=== PATIENT | female | born 1955 | race Caucasian/White ===

== ENCOUNTER 2024-06-12 08:21 | Outpatient (REF) | payer MEDICARE, OTHER, SELFPAY ==
--- OUTSIDE RECORDS SUMMARY | 2024-06-12 08:32 | XMS_ITS | Data Portability ---
Author Organization [facility], [facility] [place] [address] [place] [address] Care Team Providers Care Warehouse Operator Name Role Phone CHIP ACOSTA Primary Care Provider [phone] Assessment Encounter Date Assessment Date Assessment LastModified by Organization Details LastModified Time 10/05/2022 10/05/2022 We completed your Medicare Wellness exam today. This was an opportunity to assess your overall well being including your ability to care for yourself, your mobility, memory, mental health, as well as your safety. With advancing age, it is important to assign someone in your life as your Health Care Proxy (HCP). This person should know what is important to you and what your wishes are for medical procedures if you cannot communicate your wishes yourself (severe illness, unconsciousnes s). We discussed having a completed Health Care Proxy form today. This is in place. Vision and Hearing are senses that are critically important as we age. When impaired, they can contribute to memory loss, falls, and make it harder to drive, talk to family and friends, and engage in the world. Please get your vision checked yearly and your hearing checked when you start to notice hearing loss. We discussed approaches to lowering your risk of heart disease and stroke . Your blood pressure is at goal. Your cholesterol is at goal. We discussed cancer screening you may need as well as vaccines to prevent infections. Colon Cancer : Your risk of colon cancer is higher than average due to family history. Due for colorectal screenin . If you are not planning to have a colonoscopy please screen with stool cards yearly. Breast Cancer : Breast Cancer Screening (mammography). Next mammogram due: 2022. Cervical Cancer Screening (pap test). Next pap due: not needed. Influenza Vaccine : Flu shot yearly. Tetanus Vaccine : Every 10 years. Due: 2024. The following vaccines are available from your pharmacy: Pneumonia Vaccine : PCV20/13: once after age 65. Shingles Vaccine : 2 shots after age 50. Covid Vaccine : Make sure you have received the most up to date covid vaccine. Your personal health goal for the year is: Continue with healthy life style choices. [email or web address] Not available 10/05/2022 10:47:03 10/09/2023 10/09/2023 We completed your Medicare Wellness exam today. This was an opportunity to assess your overall well being including your ability to care for yourself, your mobility, memory, mental health, as well as your safety. With advancing age, it is important to assign someone in your life as your Health Care Proxy (HCP). This person should know what is important to you and what your wishes are for medical procedures if you cannot communicate your wishes yourself (severe illness, unconsciousnes s). We discussed having a completed Health Care Proxy form today. This is in place. Vision and Hearing are senses that are critically important as we age. When impaired, they can contribute to memory loss, falls, and make it harder to drive, talk to family and friends, and engage in the world. Please get your vision checked yearly and your hearing checked when you start to notice hearing loss. We discussed approaches to lowering your risk of heart disease and stroke . Your blood pressure is at goal. Your cholesterol is at goal. We discussed cancer screening you may need as well as vaccines to prevent infections. Colon Cancer : Your risk of colon cancer is higher than average due to personal history of colon polyps. Due for colorectal screenin . If you are not planning to have a colonoscopy please screen with stool cards yearly. Breast Cancer : Breast Cancer Screening (mammography). Next mammogram due: 2023. Cervical Cancer Screening (pap test). Next pap due: not needed. Influenza Vaccine : Flu shot yearly. Tetanus Vaccine : Every 10 years. Due: 2024. The following vaccines are available from your pharmacy: Pneumonia Vaccine : PCV20: once after age 65. Shingles Vaccine : 2 shots after age 50. Covid Vaccine : Make sure you have received the most up to date covid vaccine. Your personal health goal for the year is: continue with healthy life style choices. [email or web address] Not available 10/09/2023 12:03:54 Plan of Treatment Reminders Order Date Submit Date Provider Last Modified By Organization Details Last Modified Time Details Appointments Wellness Visit 30 2024 10:30A Jessi ACOSTA MD Not available Not available Not available Lab HbA1c (hemoglob in A1c), blood 2023 024 [facility], [address] [place] [address], [id number], 10/02/2023 14:29:48 BMP, serum or plasma 2023 024 [facility], [address] [place] [address], [id number], 10/04/2023 12:15:00 HbA1c (hemoglob in A1c), blood 2022 024 [facility], [address] [place] [address], [id number], 04/26/2023 12:28:00 BMP, serum or plasma 2022 024 [facility], [address] [place] [address], [id number], 04/26/2023 14:13:00 Referral hand surgeon referral 2024 025 [email or web address] Agatha Redd MD, [address] [place] [address], [id number], 04/23/2024 10:48:50 oral & maxillofa cial surgeon referral 2023 024 [email or web address] [facility], [address] [place] [address], [place], [address], 10/09/2023 12:24:14 orthopedi c surgeon referral 2023 024 TALBOTT [facility], [address] [place] [address], [id number], 10/18/2023 09:25:37 Procedures None recorded. Surgeries None recorded. Imaging None recorded. Medication Orders atorvasta tin 20 mg tablet 2024 025 [id number], [address] [place], [address], 04/21/2024 10:25:46 Patient TargetsNo targets recorded. Patient Instructions Encounter Date Encounter Id Patient Instructions Last Modified By Organization Details Last Modified Time 10/05/2022 [id number] advance directives: care instructions [email or web address] Not available 10/05/2022 10:49:15 preventing falls: care instructions [email or web address] Not available 10/05/2022 10:49:14 hearing loss: care instructions [email or web address] Not available 10/05/2022 10:49:14 well visit, over 65: care instructions [email or web address] Not available 10/05/2022 10:49:14 04/30/2023 [id number] I serve as the focal point for all health care services the patient needs. 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 0 high Goal: <7% in Patie nts with Diabe michael An A1c betwe en 5.7-6 .4% is ident ified as pre-d iabet es and sugge sts risk for progr essio n to diabe michael Two a1c value s of 6.5% or highe r is consi stent with a diagn osis of diabe michael but may need furth er confi rmati on Not Available [address], [address], 09/25/2022 11:46:24 09/26/19 23 09/25/2022 HGB A1C estimated average glucose 134.1 mg/dL Not Available [address], [address], 09/25/2022 11:46:24 09/26/19 23 09/25/2022 BASIC METAB OLIC PANEL glucose 100 mg/dL 70-100 Not Available [address], [address], 09/25/2022 15:24:30 09/26/19 23 09/25/2022 BASIC METAB OLIC PANEL BUN 26 mg/dL 7-18 high Not Available [address], [address], 09/25/2022 15:24:30 09/26/19 23 09/25/2022 BASIC METAB OLIC PANEL creatinine 0.7 mg/dL 0.8-1. 3 low Not Available [address], [address], 09/25/2022 15:24:30 09/26/19 23 09/25/2022 BASIC METAB OLIC PANEL B/C 37.1 ratio Not Available [address], [address], 09/25/2022 15:24:30 09/26/19 23 09/25/2022 BASIC METAB OLIC PANEL GFR >=60ML /MIN mL/mi n normal >=60m L/min - Ava l or midly reduc ed <60mL /min- Decre ased kidne y funct ion <15mL /min - Kidne y failu re [facility] calcu lates estim ated Glome rular Filtr ation Rate (eGFR ) using the Chron ic Kidne y Disea se Epide miolo gy Colla borat ion (CKD- EPI) Equat ion (Allison castillo et. al 2020) as recom luisana d by the Natio nal Kidne y Found ation . eGFR is based on age, serum creat inine , and sex. CKD-E PI does not calcu late eGFR by race, does not apply to child jen (age <18 years ), and shoul d not be used in pregn cheryl. Not Available [address], [address], 09/25/2022 15:24:30 09/26/19 23 09/25/2022 BASIC METAB OLIC PANEL sodium 140 mmol/ L 136-14 5 Not Available [address], [address], 09/25/2022 15:24:30 09/26/19 23 09/25/2022 BASIC METAB OLIC PANEL potassium 4.1 mmol/ L 3.5-5. 1 Not Available [address], [address], 09/25/2022 15:24:30 09/26/19 23 09/25/2022 BASIC METAB OLIC PANEL chloride 102 mmol/ L 96-107 Not Available [address], [address], 09/25/2022 15:24:30 09/26/19 23 09/25/2022 BASIC METAB OLIC PANEL anion gap 11.1 5.0-15 .0 Not Available [address], [address], 09/25/2022 15:24:30 09/26/19 23 09/25/2022 BASIC METAB OLIC PANEL CO2 27 mmol/ L 21-32 Not Available [address], [address], 09/25/2022 15:24:30 09/26/19 23 09/25/2022 BASIC METAB OLIC PANEL calcium 9.5 mg/dL 8.5-10 .3 Not Available [address], [address], 09/25/2022 15:24:30 09/26/19 23 09/25/2022 LIPID PANEL cholesterol 186 mg/dL <200 mg/dl Lucie able 200-2 39 mg/dl Borde rline High >240 mg/dl High Not Available [address], [address], 09/25/2022 15:24:31 09/26/19 23 09/25/2022 LIPID PANEL triglyceride s 177 mg/dL <150 mg/dL Ava l 150-1 99 mg/dL Borde rline High 200-4 99 mg/dL High >500 mg/dL Very High Not Available [address], [address], 09/25/2022 15:24:31 09/26/19 23 09/25/2022 LIPID PANEL direct HDL 50 mg/dL <40 mg/dl - Major Risk for CHD >60 mg/dl - Negat donna Risk for CHD Not Available [address], [address], 09/25/2022 15:24:31 09/26/19 23 09/25/2022 LDL - CALCU LATED LDL - calculated 100.6 RISK CATEG ORY LDL GOAL _ CHD or CHD Risk Equiv alent s <100 mg/dl (10-y ear risk >20%) 2+ Risk Facto rs <130 mg/dl (10-y ear risk <= 20%) 0-1 Risk Facto r? <160 mg/dl ? Almos t all peopl e with 0-1 risk facto r have a 10 year risk <10%, thus 10 year risk asses ment in peopl e with 0-1 risk facto r is not neces leny. Not Available [address], [address], 09/25/2022 15:24:32 04/26/19 24 04/26/2023 HGB A1C hemoglobin A1C 6.2 % 4.8-6. 0 high Goal: <7% in Patie nts with Diabe michael An A1c betwe en 5.7-6 .4% is ident ified as pre-d iabet es and sugge sts risk for progr essio n to diabe michael Two a1c value s of 6.5% or highe r is consi stent with a diagn osis of diabe michael but may need furth er confi rmati on Not Available [address], [address], 04/26/2023 12:28:00 04/26/19 24 04/26/2023 HGB A1C estimated average glucose 131.2 mg/dL Not Available [address], [address], 04/26/2023 12:28:00 04/26/19 24 04/26/2023 BASIC METAB OLIC PANEL glucose 108 mg/dL 70-100 high Not Available [address], [address], 04/26/2023 14:13:00 04/26/19 24 04/26/2023 BASIC METAB OLIC PANEL BUN 21 mg/dL 7-18 high Not Available [address], [address], 04/26/2023 14:13:00 04/26/19 24 04/26/2023 BASIC METAB OLIC PANEL creatinine 0.8 mg/dL 0.8-1. 3 Not Available [address], [address], 04/26/2023 14:13:00 04/26/19 24 04/26/2023 BASIC METAB OLIC PANEL B/C 26.3 ratio Not Available [address], [address], 04/26/2023 14:13:00 04/26/19 24 04/26/2023 BASIC METAB OLIC PANEL GFR >=60ML /MIN mL/mi n normal >=60m L/min - Ava l or midly reduc ed <60mL /min- Decre ased kidne y funct ion <15mL /min - Kidne y failu re [facility] calcu lates estim ated Glome rular Filtr ation Rate (eGFR ) using the Chron ic Kidne y Disea se Epide miolo gy Colla borat ion (CKD- EPI) Equat ion (Allison castillo et. al 2020) as recom luisana d by the Natio nal Kidne y Found ation . eGFR is based on age, serum creat inine , and sex. CKD-E PI does not calcu late eGFR by race, does not apply to child jen (age <18 years ), and shoul d not be used in pregn cheryl. Not Available [address], [address], 04/26/2023 14:13:00 04/26/19 24 04/26/2023 BASIC METAB OLIC PANEL sodium 142 mmol/ L 136-14 5 Not Available [address], [address], 04/26/2023 14:13:00 04/26/19 24 04/26/2023 BASIC METAB OLIC PANEL potassium 4.2 mmol/ L 3.5-5. 1 Not Available [address], [address], 04/26/2023 14:13:00 04/26/19 24 04/26/2023 BASIC METAB OLIC PANEL chloride 101 mmol/ L 96-107 Not Available [address], [address], 04/26/2023 14:13:00 04/26/19 24 04/26/2023 BASIC METAB OLIC PANEL anion gap 11.4 5.0-15 .0 Not Available [address], [address], 04/26/2023 14:13:00 04/26/19 24 04/26/2023 BASIC METAB OLIC PANEL CO2 30 mmol/ L 21-32 Not Available [address], [address], 04/26/2023 14:13:00 04/26/19 24 04/26/2023 BASIC METAB OLIC PANEL calcium 9.9 mg/dL 8.5-10 .3 Not Available [address], [address], 04/26/2023 14:13:00 04/26/19 24 04/26/2023 LIPID PANEL cholesterol 196 mg/dL <200 mg/dl Lucie able 200-2 39 mg/dl Borde rline High >240 mg/dl High Not Available [address], [address], 04/26/2023 14:13:01 04/26/19 24 04/26/2023 LIPID PANEL triglyceride s 212 mg/dL <150 mg/dL Ava l 150-1 99 mg/dL Borde rline High 200-4 99 mg/dL High >500 mg/dL Very High Not Available [address], [address], 04/26/2023 14:13:01 04/26/19 24 04/26/2023 LIPID PANEL direct HDL 55 mg/dL <40 mg/dl - Major Risk for CHD >60 mg/dl - Negat donna Risk for CHD Not Available [address], [address], 04/26/2023 14:13:01 04/26/19 24 04/26/2023 LDL - CALCU LATED LDL - calculated 98.6 RISK CATEG ORY LDL GOAL _ CHD or CHD Risk Equiv alent s <100 mg/dl (10-y ear risk >20%) 2+ Risk Facto rs <130 mg/dl (10-y ear risk <= 20%) 0-1 Risk Facto r? <160 mg/dl ? Almos t all peopl e with 0-1 risk facto r have a 10 year risk <10%, thus 10 year risk asses ment in peopl e with 0-1 risk facto r is not monica michele. Not Available [address], [address], 04/26/2023 14:13:02 10/02/19 24 10/02/2023 HGB A1C hemoglobin A1C 6.1 % 4.8-6. 0 high Goal: <7% in Patie nts with Diabe michael An A1c betwe en 5.7-6 .4% is ident ified as pre-d iabet es and sugge sts risk for progr essio n to diabe michael Two a1c value s of 6.5% or highe r is consi stent with a diagn osis of diabe michael but may need furth er confi rmati on Not Available [address], [address], 10/02/2023 14:29:47 10/02/19 24 10/02/2023 HGB A1C estimated average glucose 128.4 mg/dL Not Available [address], [address], 10/02/2023 14:29:47 10/02/19 24 10/04/2023 BASIC METAB OLIC PANEL glucose 94 mg/dL 70-100 Not Available [address], [address], 10/04/2023 12:15:00 10/02/19 24 10/04/2023 BASIC METAB OLIC PANEL BUN 19 mg/dL 7-18 high Not Available [address], [address], 10/04/2023 12:15:00 10/02/19 24 10/04/2023 BASIC METAB OLIC PANEL creatinine 0.8 mg/dL 0.8-1. 3 Not Available [address], [address], 10/04/2023 12:15:00 10/02/19 24 10/04/2023 BASIC METAB OLIC PANEL B/C 23.8 ratio Not Available [address], [address], 10/04/2023 12:15:00 10/02/19 24 10/04/2023 BASIC METAB OLIC PANEL GFR >=60ML /MIN mL/mi n normal >=60m L/min - Ava l or midly reduc ed <60mL /min- Decre ased kidne y funct ion <15mL /min - Kidne y failu re [facility] calcu lates estim ated Glome rular Filtr ation Rate (eGFR ) using the Chron ic Kidne y Disea se Epide miolo gy Colla borat ion (CKD- EPI) Equat ion (Allison castillo et. al 2020) as recom luisana d by the Natio nal Kidne y Found ation . eGFR is based on age, serum creat inine , and sex. CKD-E PI does not calcu late eGFR by race, does not apply to child jen (age <18 years ), and shoul d not be used in pregn cheryl. Not Available [address], [address], 10/04/2023 12:15:00 10/02/19 24 10/04/2023 BASIC METAB OLIC PANEL sodium 141 mmol/ L 136-14 5 Not Available [address], [address], 10/04/2023 12:15:00 10/02/19 24 10/04/2023 BASIC METAB OLIC PANEL potassium 4.1 mmol/ L 3.5-5. 1 Not Available [address], [address], 10/04/2023 12:15:00 10/02/19 24 10/04/2023 BASIC METAB OLIC PANEL chloride 103 mmol/ L 96-107 Not Available [address], [address], 10/04/2023 12:15:00 10/02/19 24 10/04/2023 BASIC METAB OLIC PANEL anion gap 10.0 5.0-15 .0 Not Available [address], [address], 10/04/2023 12:15:00 10/02/19 24 10/04/2023 BASIC METAB OLIC PANEL CO2 28 mmol/ L 21-32 Not Available [address], [address], 10/04/2023 12:15:00 10/02/19 24 10/04/2023 BASIC METAB OLIC PANEL calcium 9.3 mg/dL 8.5-10 .3 Not Available [address], [address], 10/04/2023 12:15:00 04/18/19 25 04/18/2024 HGB A1C hemoglobin A1C 6.4 % 4.8-6. 0 high Goal: <7% in Patie nts with Diabe michael An A1c betwe en 5.7-6 .4% is ident ified as pre-d iabet es and sugge sts risk for progr essio n to diabe michael Two a1c value s of 6.5% or highe r is consi stent with a diagn osis of diabe michael but may need furth er confi rmati on Not Available [address], [address], 04/18/2024 12:20:20 04/18/19 25 04/18/2024 HGB A1C estimated average glucose 137.0 mg/dL Not Available [address], [address], 04/18/2024 12:20:20 04/18/19 25 04/18/2024 BASIC METAB OLIC PANEL glucose 99 mg/dL 70-100 Not Available [address], [address], 04/18/2024 13:54:33 04/18/19 25 04/18/2024 BASIC METAB OLIC PANEL BUN 18 mg/dL 7-18 Not Available [address], [address], 04/18/2024 13:54:33 04/18/19 25 04/18/2024 BASIC METAB OLIC PANEL creatinine 0.8 mg/dL 0.8-1. 3 Not Available [address], [address], 04/18/2024 13:54:33 04/18/19 25 04/18/2024 BASIC METAB OLIC PANEL B/C 22.5 ratio Not Available [address], [address], 04/18/2024 13:54:33 04/18/19 25 04/18/2024 BASIC METAB OLIC PANEL GFR >=60ML /MIN mL/mi n normal >=60m L/min - Ava l or midly reduc ed <60mL /min- Decre ased kidne y funct ion <15mL /min - Kidne y failu re [facility] calcu lates estim ated Glome rular Filtr ation Rate (eGFR ) using the Chron ic Kidne y Disea se Epide miolo gy Colla borat ion (CKD- EPI) Equat ion (Allison castillo et. al 2020) as recom luisana d by the Natio nal Kidne y Found ation . eGFR is based on age, serum creat inine , and sex. CKD-E PI does not calcu late eGFR by race, does not apply to child jen (age <18 years ), and shoul d not be used in pregn cheryl. Not Available [address], [address], 04/18/2024 13:54:33 04/18/19 25 04/18/2024 BASIC METAB OLIC PANEL sodium 142 mmol/ L 136-14 5 Not Available [address], [address], 04/18/2024 13:54:33 04/18/19 25 04/18/2024 BASIC METAB OLIC PANEL potassium 4.4 mmol/ L 3.5-5. 1 Not Available [address], [address], 04/18/2024 13:54:33 04/18/19 25 04/18/2024 BASIC METAB OLIC PANEL chloride 101 mmol/ L 96-107 Not Available [address], [address], 04/18/2024 13:54:33 04/18/19 25 04/18/2024 BASIC METAB OLIC PANEL anion gap 11.4 5.0-15 .0 Not Available [address], [address], 04/18/2024 13:54:33 04/18/19 25 04/18/2024 BASIC METAB OLIC PANEL CO2 30 mmol/ L 21-32 Not Available [address], [address], 04/18/2024 13:54:33 04/18/19 25 04/18/2024 BASIC METAB OLIC PANEL calcium 10.0 mg/dL 8.5-10 .3 Not Available [address], [address], 04/18/2024 13:54:33 04/18/19 25 04/18/2024 LIPID PANEL cholesterol 176 mg/dL <200 mg/dl Lucie able 200-2 39 mg/dl Borde rline High >240 mg/dl High Not Available [address], [address], 04/18/2024 13:54:34 04/18/19 25 04/18/2024 LIPID PANEL triglyceride s 225 mg/dL <150 mg/dL Ava l 150-1 99 mg/dL Borde rline High 200-4 99 mg/dL High >500 mg/dL Very High Not Available [address], [address], 04/18/2024 13:54:34 04/18/19 25 04/18/2024 LIPID PANEL direct HDL 52 mg/dL <40 mg/dl - Major Risk for CHD >60 mg/dl - Negat donna Risk for CHD Not Available [address], [address], 04/18/2024 13:54:34 04/18/19 25 04/18/2024 LDL - CALCU LATED LDL - calculated 79 RISK CATEG ORY LDL GOAL _ CHD or CHD Risk Equiv alent s <100 mg/dl (10-y ear risk >20%) 2+ Risk Facto rs <130 mg/dl (10-y ear risk <= 20%) 0-1 Risk Facto r? <160 mg/dl ? Almos t all peopl e with 0-1 risk facto r have a 10 year risk <10%, thus 10 year risk asses ment in peopl e with 0-1 risk facto r is not neces leny. Not Available [address], [address], 04/18/2024 13:54:35 01/18/20 23 01/16/2023 MAMMO , scree barron, tomos ynthe sis, bilat eral No observ ation record ed. [email or web address] Not Available 04/12 10:48:58 01/28/20 24 01/21/2024 MAMMO , diagn ostic , tomos ynthe sis, right No observ ation record ed. [email or web address] Not Available 2024 10:16:20 01/28/20 24 01/21/2024 MAMMO , scree barron, tomos ynthe sis, bilat eral No observ ation record ed. [email or web address] Not Available 2024 10:16:20 Result Notes None recorded. Problems Name Problem SNOMED Code Status Onset Date Resolution Date Notes Provider Name and Address Organization Details Recorded Time Family history of malignant neoplasm of ovary 908328285 Completed 08/04/2016 Meredith Uribe NP [address] [place], [address], [facility] 7 12:41:04 Family history of breast cancer 344941751 Active Meredith Uribe NP [facility] [place], [address], [facility] 6 13:12:12 Family history of cancer of colon 591995301 Active 2016 Meredith Uribe NP [address] [place] [address] [place], [address], [facility] 7 12:41:19 Gastroesoph ageal reflux disease 908721253 Active 2019 Jackeline broderick MD [address] [place] [address] [place], [address], [facility] 0 09:46:53 Vesicular hand eczema 542862934 Active 2020 Jackeline broderick MD [address] [place] [address] [place], [address], [facility] 1 09:59:43 Mixed hyperlipide emile 619653305 Active 2003 Meredith Uribe NP [address] [place] [address] [place], [address], [facility] 6 13:12:12 Psychogenic headache 19236915 Completed 200102/01/2009 Meredith Uribe NP [address] [place], [place] [address], [address], [facility] 6 13:07:14 Essential hypertensio n 13237607 Completed 200303/25/2012 Meredith Uribe NP [address] [place], [place] [address], [address], [facility] 6 13:07:14 Lateral epicondylit is 622156395 Completed 03/25/2012 Meredith Uribe NP [facility] [place], [address], [facility] 6 13:07:15 Palpitation s 65189623 Completed 200403/25/2012 Meredith Uribe NP [address] [place], [address], [facility] 6 13:07:15 Multiple joint pain 43304383 Completed 03/25/2012 Meredith Uribe NP [address] [place], [address], [facility] 6 13:07:14 Benign essential hypertensio n 6184201 Active 2003 Meredith Uribe NP [address] [place], [address], [facility] 6 13:12:12 Neck pain 57135498 Completed 200703/25/2012 Meredith Uribe NP [address] [place], [address], [facility] 6 13:07:15 Noninflamma tory disorder of the vagina 02291508 Completed 200402/01/2009 Meredith Uribe NP [address] [place], [address], [facility] 6 13:07:15 Dysfunction al uterine bleeding Completed 200403/25/2012 Meredith Uribe NP [address] [place], [address], [facility] 6 13:07:14 Tachycardia 5952599 Completed 200303/25/2012 Meredith Uribe NP [address] [place], [address], [facility] 6 13:07:15 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 73875425 Completed 200702/01/2009 Meredith Uribe NP [address] [place], [address], [facility] 6 13:07:14 Joint pain 52997609 Completed 200403/25/2012 Meredith Uribe NP [address] [place], [address], [facility] 6 13:07:14 Acute maxillary sinusitis 89182824 Completed 200102/01/2009 Meredith Uribe NP [address] [place], [address], [facility] 6 13:07:14 Elevated blood-press ure reading without diagnosis of hypertensio n 588057069 Completed 200102/01/2009 Meredith Uribe NP [address] [place], [address], [facility] 6 13:07:15 Impaired fasting glycemia 422547759 Active Meredith Uribe NP [address] [place], [address], [facility] 6 13:12:12 Hyperlipide emile 90033578 Completed 200303/25/2012 Meredith Uribe NP [address] [place], [address], [facility] 6 13:07:14 Acute bronchitis 44631647 Completed 03/25/2012 Meredith Uribe NP [address] [place], [address], [facility] 6 13:07:14 Malaise and fatigue 908570313 Completed 200403/25/2012 Meredith Uribe NP [address] [place], [address], [facility] 6 13:07:15 Headache 72744100 Completed 199902/01/2009 Meredith Uribe NP [address] [place], [address], [facility] 6 13:07:15 Viral disease 82799191 Completed 200002/01/2009 Meredith Uribe NP [address] [place], [address], [facility] 6 13:07:14 Sleep disorder 72944939 Completed 03/25/2012 Meredith Uribe NP [address] [place], [address], [facility] 6 13:07:15 Mammography abnormal 364347774 Completed 10/27/2014 Meredith Uribe NP [address] [place], [address], [facility] 6 13:07:15 Congenital anomaly of skin 385007558 Completed 03/25/2012 Meredith Uribe NP [address] [place], [address], [facility] 6 13:07:15 Primary malignant neoplasm of female breast 87588463 Completed 200303/25/2012 Meredith Uribe NP [address] [place], [address], [facility] 6 13:07:14 Menstruatio n finding Completed 200503/25/2012 Meredith Uribe NP [address] [place], [address], [facility] 6 13:07:15 Acute sinusitis 98980086 Completed 03/25/2012 Meredith Uribe NP [address] [place], [address], [facility] 6 13:07:14 Acute sinusitis 39490716 Completed 199902/01/2009 Meredith Uribe NP [address] [place], [address], [facility] 6 13:07:14 Joint pain in ankle and foot Completed 03/25/2012 Meredith Uribe NP [address] [place], [address], [facility] 6 13:07:14 Finding of trunk structure 480218917 Completed 200403/25/2012 Meredith Uribe NP [address] [place], [address], [facility] 6 13:07:15 Breast lump 88640959 Completed 200103/25/2012 Meredith Uribe NP [address], [place], [address], [facility] 6 13:07:14 Gastrointes tinal hemorrhage 55966475 Completed 200403/25/2012 Meredith Uribe NP [address], [place], [address], [facility] 6 13:07:14 Common cold 17062232 Completed 200002/01/2009 Meredith Uribe NP [address], [place], [address], [facility] 6 13:07:14 Mammography abnormal 461826512 Completed 200703/25/2012 Meredith Uribe NP [address] [place], [address], [facility] 6 13:07:15 Menopausal symptom 30103263 Completed 200803/25/2012 Meredith Uribe NP [address] [place], [address], [facility] 6 13:07:14 Solitary cyst of breast 652946764 Completed 200603/25/2012 Meredith Uribe NP [address] [place], [address], [facility] 6 13:07:14 Menopausal and postmenopau markus disorders 040609028 Completed 200702/01/2009 Meredith Uribe NP [address], [place], [address], [facility] 6 13:07:14 Problem Notes None recorded. Procedures Surgical History Date Name Laterality Status Provider Name and Address Organization Details Recorded Time 10/09/19 24 Medicare Wellness Visit completed NOLA Morrison [facility] 10/08/2023 09:36:32 10/09/19 24 Cardiovascular disease risk reduction counseling completed NOLA Morrison [facility] 10/08/2023 09:38:03 10/09/19 24 prevention-annual alcohol misuse screening completed NOLA Morrison [facility] 10/08/2023 09:38:04 04/30/19 24 [id number] completed Jackeline Spivey. [address] [place] [address], [phone], [facility] 04/29/2023 20:10:38 10/06/19 23 Medicare Wellness Visit completed Tamiko NOLA Farrell [facility] 10/02/2022 14:12:12 10/06/19 23 Cardiovascular disease risk reduction counseling completed Tamiko NOLA Farrell [facility] 10/02/2022 14:12:58 10/06/19 23 prevention-annual alcohol misuse screening completed Tamiko NOLA Farrell [facility] 10/02/2022 14:13:02 08/30/19 22 Medicare Wellness Visit completed Tamiko NOLA Farrell [facility] 08/29/2021 12:05:23 08/30/19 22 Alcohol use screening completed Tamiko NOLA Farrell [facility] 08/29/2021 12:05:23 08/30/19 22 Cardiovascular disease risk reduction counseling completed Tamiko NOLA Farrell [facility] 08/29/2021 12:05:23 10/28/19 21 Tassoni - Colonoscopy completed Marshall Back MD [address] [place] [address], [phone], [facility] 10/27/2020 08:11:19 10/28/19 21 colonoscopy completed Jackeline Spivey. [address] [place] [address], [phone], [facility] 10/31/2020 16:05:15 07/30/19 21 Medicare Wellness Visit completed Dunia Le [facility] 07/29/2020 09:03:31 07/30/19 21 prevention-cardiov ascular risk reduction counseling completed Dunia Le [facility] 07/29/2020 09:03:31 07/30/19 21 prevention-annual alcohol misuse screening completed Dunia Le [facility] 07/29/2020 09:03:31 06/12/19 18 POC Urinalysis Testing completed Gloria Hinojosa LPN [facility] 06/11/2017 09:34:32 08/24/19 16 Tassoni - Colonoscopy completed Marshall Back MD [address] [place] [address], [phone], [facility] 08/24/2015 11:21:39 08/24/19 16 Tassoni - EGD completed Marshall Back MD [address] [place] [address], [phone], [facility] 08/24/2015 10:48:17 10/01/19 05 completed Not Available [facility] 01/26/2011 06:05:52 left oophorectomy completed Mary Grace Spivey. [address] [place] [address], [phone], [facility] 02/16/2020 08:11:22 Imaging Results Imaging Date Name Status LastModified by Organiz ation Details LastModified Time 01/16/2023 MAMMO, screening, tomosynthesis, bilateral completed Information not available 04/30/2023 10:48:58 01/21/2024 MAMMO, diagnostic, tomosynthesis, right completed Information not available 04/21/2024 10:16:20 01/21/2024 MAMMO, screening, tomosynthesis, bilateral completed Information not available 04/21/2024 10:16:20 Procedure Notes None recorded. Medical Equipment None Reported. Allergies Allergen ID Allergen Name Allergen Category Reaction Reaction Severity Criticality Documentation Date Start Date Code Code System Note Provider Name and Address Organization Details Recorded Time 52058 Substance with sulfonami de structure and antibacte rial mechanism of action (substanc e) medicatio n Not available Not available Not available 02/01/2009 06141 8003 SNOMED BELLS PALSY FER Hernandez [facility] 16:24:01 88387 lisinopri l medicatio n cough Not available Not available 02/01/2009 27019 RxNorm Not Available [facility] 06:05:41 aspirin medicatio n abdominal pain Not available Not available 12/14/2016 1191 RxNorm [place] Dhill[place], [facility] 7 10:29:58 ibuprofen medicatio n Not available Not available Not available 12/14/2016 5640 RxNorm Jackeline broderick MD [address] [place] [address], [place], [address] , [facility] 4 10:51:49 48641 Bactrim medicatio n Not available Not available Not available 08/02/2009 80905 9 RxNorm BELLS PALSY Betty argueta RN null, [facility] 1 16:23:31 16986 penicilli n G Not available hives Not available Not available 08/02/2009 7980 RxNorm Not Available [facility] 1 06:05:41 Medications Name Sig Start Date Stop Date Status Note LastModified by Organization Details LastModified Time atorvastat in 20 mg tablet Take 1 tablet every day by oral route for 90 days, for choleste rol. 2024 active Not Available Not Available Not Avai lable Zithromax Z-Juan Francisco 250 mg tablet Take 2 tablets (500 mg) by oral route once daily for 1 day then 1 tablet (250 mg) by oral route once daily for 4 days 08/02 completed Not Available Not Available Not Available Guiatuss AC 10 mg-100 mg/5 mL oral liquid Take 10 mL every 4 hours by oral route. 08/02 completed Not Available Not Available Not Available Aleve 220 mg tablet 2007 active as needed Not Available Not Available Not Available oxycodone- acetaminop hen 5 mg-325 mg tablet Take 1 tablet every 6 hours by oral route as needed. 2011 active Not Available Not Available Not Avai lable lisinopril 10 mg tablet Take 1 tablet every day by oral route. 02/01 completed Not Available Not Available Not Available losartan 25 mg tablet TAKE 1 TABLET BY MOUTH EVERY DAY active Not Available Not Available No t Available omeprazole 20 mg capsule,de layed release TAKE 1 CAPSULE (20 MG) BY ORAL ROUTE every 3 days active Not Available Not Available No t Available lisinopril 5 mg tablet Take 1 tablet every day by oral route. 09/25 completed Not Available Not Available Not Available hydrochlor othiazide 25 mg tablet TAKE 1 TABLET BY MOUTH EVERY DAY active Not Available Not Available No t Available lovastatin 20 mg tablet TAKE 1 TABLET BY MOUTH EVERY DAY IN THE EVENING 07/29 completed Not Available Not Available Not Available albuterol sulfate HFA 90 mcg/actuat ion aerosol inhaler Inhale 2 puffs every 4 hours by inhalati on route. 08/02 completed Not Available Not Available Not Available betamethas one dipropiona te 0.05 % topical ointment APPLY A THIN LAYER TO THE AFFECTED AREA(S) BY TOPICAL ROUTE twice DAILY active Not Available Not Available No t Available fluticason e propionate 50 mcg/actuat ion nasal spray,susp ension Inhale 2 sprays every day by intranas al route. 2012 active Not Available Not Available Not Avai lable metformin ER 500 mg tablet,ext ended release 24 hr TAKE 2 TABLET BY MOUTH EVERY DAY WITH DINNER. Total dose 1,000 mg per day. 2024 active Not Available Not Available Not Avai lable Vitamin B6 200 mg tablet,ext ended release Takes 1 Daily active Not Available Not Available No t Available Denta 5000 Plus 1.1 % cream BRUSH ONCE AT NIGHT BEFORE BED, IF POSSIBLE , DO NOT EAT/DRIN K FOR 30 MIN AFTER active Not Available Not Available No t Available Vitamin B6 100 mg tablet active Not Available Not Available Not Available Super Calcium 600 mg-200 unit-25mg tablet 2007 active Take 1.00 tabs twice daily Not Available Not Available Not Available nitrofuran toin monohydrat e/macrocry stals 100 mg capsule Take 1 capsule every 12 hours by oral route for 7 days. 07/28 completed Not Available Not Available Not Available Fish Oil Takes 1200mg Daily 2009 active Not Available Not Available Not Avai lable Calcium 600 Takes 1 daily active Not Available Not Available No t Available Glucosamin e one tablet daily active Not Available Not Available No t Available multivitam in Takes 1 Daily active Not Available Not Available No t Available omeprazole (bulk) 20mg every other day 08/29 completed Not Available Not Available Not Available CoQ-10 active 200mg daily Not Available Not Available Not Available coQ10 (liposomal ubiquinol) Takes 200mg Daily active Not Available Not Available No t Available Prevnar 13 (PF) 0.5 mL intramuscu lar syringe ADM 0.5ML IM UTD 07/28 completed Not Available Not Available Not Available Vitamin D3 125 mcg (5,000 unit) tablet Take 1 tablet every week by oral route. active Not Available Not Available No t Available Fluzone High-Dose Quad 2020-21 (PF) 240 mcg/0.7 mL IM syringe ADM 0.7ML IM UTD 07/28 completed Not Available Not Available Not Available Flowflex COVID-19 Antigen Home Test kit USE DIRECTED 04/21 completed Not Available Not Available Not Available Vitals Date Recorded Body height Body mass index (BMI) Body weight Heart rate Oxygen saturation Oxygen saturation in Arterial blood by Pulse oximetry Systolic blood pressure Diastolic blood pressure Provider Name and Address Organization Details Last Updated DateTime 3 163.83 cm 24 kg/m2 78654.1 2 g 75 /min 100 % 100 % 122 mm[Hg] 80 mm[Hg] NOLA Morrison [facility] 3 10:31:22 Date Recorded Body height Body mass index (BMI) Body weight Heart rate Oxygen saturation Oxygen saturation in Arterial blood by Pulse oximetry Systolic blood pressure Diastolic blood pressure Provider Name and Address Organization Details Last Updated DateTime 4 163.83 cm 24.7 kg/m2 49599.4 9 g 77 /min 99 % 99 % 140 mm[Hg] 80 mm[Hg] NOLA Morrison [facility] 4 10:42:01 Date Recorded Systolic blood pressure Diastolic blood pressure Provider Name and Address Organization Details Last Updated DateTime 04/30/2023 130 mm[Hg] 80 mm[Hg] Jackeline Parker MD [address] [place] [address], [phone], [facility] 04/30/2023 10:56:20 Date Recorded Body height Body mass index (BMI) Body weight Heart rate Oxygen saturation Oxygen saturation in Arterial blood by Pulse oximetry Systolic blood pressure Diastolic blood pressure Provider Name and Address Organization Details Last Updated DateTime 4 163.83 cm 23.5 kg/m2 43304.3 4 g 63 /min 99 % 99 % 120 mm[Hg] 80 mm[Hg] NOLA Morrison [facility] 4 11:39:03 Date Recorded Body height Body mass index (BMI) Body weight Heart rate Oxygen saturation Oxygen saturation in Arterial blood by Pulse oximetry Systolic blood pressure Diastolic blood pressure Provider Name and Address Organization Details Last Updated DateTime 4 163.83 cm 24.5 kg/m2 54479.8 9 g 75 /min 99 % 99 % 120 mm[Hg] 70 mm[Hg] NOLA Morrison [facility] 4 11:20:24 Date Recorded Body height Body mass index (BMI) Body weight Heart rate Systolic blood pressure Diastolic blood pressure Provider Name and Address Organization Details Last Updated DateTime 5 163.83 cm 24.8 kg/m2 16110.0 8 g 83 /min 122 mm[Hg] 70 mm[Hg] Betty Sheron [facility] 5 10:12:50 Social History Question Answer Notes LastModified by Organizat ion Details LastModified Time Tobacco Smoking Status Never Smoker NOLA Morrison [facility] 08/29/2021 14:22:46 What Is Your Level Of Alcohol Consumption? Occasional A Glass Of Wine With Dinner On Weekends [email or web address] Information not available 10/09/2023 Do You Wear A Helmet When Biking? Yes [email or web address] Information not available 05/07/2015 What Is Your Level Of Caffeine Consumption? Occasional Tea Or Diet Soda Occasionally Information not available 04/28/2014 How Much Tobacco Do You Chew? None Information not available 05/07/2015 Are You Currently Employed? No [email or web address] Information not available 08/29/2021 What Type Of Diet Are You Following? REGULAR Information not available 04/28/2014 Which Illicit Or Recreational Drugs Have You Used? None [email or web address] Information not available 07/29/2020 Do You Or Have You Ever Used E-cigarettes Or Vape? Never Used Electronic Cigarettes [email or web address] Information not available 08/29/2021 What Is The Highest Grade Or Level Of School You Have Completed Or The Highest Degree You Have Received? 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 No [email or web address] Information not available 08/29/2021 How Many Days In The Past Year Have You Had A Heavy Drinking Consumption (4+ Female, 5+ Male)? 0 [email or web address] Information not available 10/16/2012 Are There Any Guns Present In Your Home? No [email or web address] Information not available 08/29/2021 Do You Use Insect Repellent Routinely? Yes [email or web address] Information not available 08/29/2021 Live Alone Or With Others? With Others Information not available 07/29/2020 Patient Has Health Care Proxy Signed And In Chart Yes Ar Diaz ( Spouse ) [email or web address] Information not available 12/17/2018 CCM Consent Discussion 07/29/2020 [email or web address] Information not available 08/02/2020 Marital Status Informatio n not available 10/07/2013 Mosquito Repellent Used Routinely Yes Information not available 04/28/2014 What Was The Date Of Your Most Recent Tobacco Screening? 04/21/2024 [email or web address] Information not available 04/21/2024 How Many Children Do You Have? 0 [email or web address] Information not available 08/17/2017 What Is Your Relationship Status? Male Spouse Information not available 01/25/2021 Do You Use Your Seat Belt Or Car Seat Routinely? Yes [email or web address] Information not available 08/29/2021 Seat Belts Used Routinely Yes Information not available 04/28/2014 Smoke Alarm In Home Yes [email or web address] Information not available 05/07/2015 Do You Have Smoke And Carbon Monoxide Detectors In Your Home? Yes Information not available 08/29/2021 Are You Passively Exposed To Smoke? No [email or web address] Information not available 08/29/2021 Do You Or Have You Ever Used Smokeless Tobacco? Never Used Smokeless Tobacco Information not available 08/29/2021 How Much Tobacco Do You Smoke? No [email or web address] Information not available 08/29/2021 General Stress Level Low Information not available 05/07/2015 Do You Use Any Illicit Or Recreational Drugs? No Information not available 01/25/2021 Do You Use Sunscreen Routinely? Yes Information not available 04/28/2014 How Many Years Have You Smoked Tobacco? 0 [email or web address] Information not available 08/29/2021 Sex: Female Functional Status Question Answer Note LastModified by Organizat ion Details LastModified Time What is your exercise level? Occasional walks 3 times a week [email or web address] Information not available 08/29/2021 Mental Status None recorded. Family History Relationship Description Onset Age of this Age Resolved Age Notes LastModified by Organization Details LastModified Time Father Heart disease 72 [email or web address] Not available 05/07 13:07:33 Brother Malignant tumor of colon 74 [email or web address] Not available 07/11 09:38:23 Brother Diabetes mellitus [email or web address] Not available 0408/2019 09:27:02 Brother Heart disease [email or web address] Not available 07/11 09:38:35 Mother Malignant tumor of breast 63 [email or web address] Not available 07/11 09:37:41 Mother Essential hypertension [email or web address] Not available 0 07/29/2020 09:38:51 Maternal Grandmother Malignant tumor of breast [email or web address] Not available 07/11 09:39:08 Maternal Aunt Malignant neoplasm of uterus [email or web address] Not available 07/11 09:39:55 Notes:Cardiovascular: Family history is remarkable for coronary artery disease and hypertension. mother with HTN, father of CAD at 72; brother IA at 60 Cancer: Family history is remarkable for breast cancer. mother diagnosed with breast CA @ 54, MGM, MA also with breast CA; MU colon CA; [place] uterine CA Family history is positive for colorectal cancer. Family history is remarkable for endometrial cancer. Endocrine: brother T2DM Medical History No medical history recorded. Gynecological HistoryNo gynecological history recorded. Obstetrics History GPAL:G 0 P 0 0 0 0 Immunizations Vaccine Type Date Status Note Provider Nam e and Address Organization Details Recorded Time Influenza, split virus, trivalent, preservative 1 completed Not Available [facility] 03/29/2019 02:18:14 DTaP, unspecified formulation 5 completed Not Available [facility] 01/25/2011 05:21:29 influenza, unspecified formulation 8 completed Not Available [facility] 01/25/2011 05:22:13 influenza, unspecified formulation 0 completed Not Available [facility] 01/25/2011 05:22:52 Influenza, split virus, trivalent, PF 3 completed Not Available [facility] 03/29/2019 02:18:58 zoster live 5 completed Not Available [facility] 03/29/2019 02:19:44 Td (adult), 5 Lf tetanus toxoid, preservative free, adsorbed 5 completed Not Available [facility] 03/29/2019 02:19:45 Influenza, split virus, quadrivalent, PF 5 completed Not Available [facility] 03/29/2019 02:19:52 influenza, unspecified formulation 2 completed [place] Zambrano, [facility] 03/25/2012 08:23:22 Influenza, split virus, quadrivalent, PF 6 completed Not Available [facility] 03/29/2019 02:20:42 Influenza, split virus, quadrivalent, PF 7 completed Not Available [facility] 03/29/2019 02:27:42 Influenza, split virus, trivalent, preservative 4 completed Anabella Yoder LPN null, [facility] 04/28/2014 08:36:07 Tdap 5 completed Gabriella Crain LPN null, [facility] 05/19/2014 10:19:24 Influenza, split virus, quadrivalent, PF 8 completed Not Available [facility] 03/29/2019 02:22:58 Influenza, split virus, quadrivalent, PF 9 completed Not Available [facility] 03/29/2019 02:24:07 Pneumococcal conjugate PCV 13 0 completed Susan George CMA null, [facility] 12/15/2019 11:25:40 Influenza, high-dose, quadrivalent, PF 0 completed Susan George CMA null, [facility] 12/15/2019 11:26:51 COVID-19, mRNA, LNP-S, PF, 100 mcg/0.5mL dose or 50 mcg/0.25mL dose 1 completed Sy Wade, COCONUT COOKER null, [facility] 08/02/2020 09:51:06 COVID-19, mRNA, LNP-S, PF, 100 mcg/0.5mL dose or 50 mcg/0.25mL dose 1 completed Sy Wade COCONUT COOKER null, [facility] 08/02/2020 09:52:05 zoster recombinant 1 completed Nilmari[facility] 08:19:13 COVID-19, mRNA, LNP-S, PF, 100 mcg/0.5mL dose or 50 mcg/0.25mL dose 1 completed Nilmari, [facility] 01/14/2021 16:33:46 Influenza, split virus, quadrivalent, preservative 1 completed Nilmari, RMA Farrell null, [facility] 01/25/2021 08:17:55 pneumococcal polysaccharide PPV23 1 completed Nilmari, [facility] 01/25/2021 08:18:43 COVID-19, mRNA, LNP-S, PF, 100 mcg/0.5mL dose or 50 mcg/0.25mL dose 2 completed Nilmari, RMA Farrell null, [facility] 08/29/2021 12:08:38 zoster recombinant 1 completed Nilmari, RMA Farrell null, [facility] 09/05/2021 15:24:16 COVID-19, mRNA, LNP-S, bivalent, PF, 50 mcg/0.5 mL or 25mcg/0.25 mL dose 3 completed Dunia Le COCONUT COOKER null, [facility] 08/24/2022 08:17:56 influenza, unspecified formulation 2 completed Jackeline Parker MD [address] [place] [address], [id number], [facility] 10/05/2022 10:46:41 Influenza, split virus, quadrivalent, preservative 3 completed NOLA Morrison, [facility] 11/26/2022 19:09:19 Respiratory syncytial virus (RSV) vaccine, unspecified 3 completed NOLA Morrison, [facility] 01/15/2023 11:04:41 COVID-19, mRNA, LNP-S, bivalent, PF, 50 mcg/0.5 mL or 25mcg/0.25 mL dose 4 completed NOLA Morrison, [facility] 05/15/2023 13:50:04 COVID-19, mRNA, LNP-S, PF, 100 mcg/0.5mL dose or 50 mcg/0.25mL dose 4 completed NOLA Morrison, [facility] 11/27/2023 13:46:39 Influenza, high-dose, trivalent, PF 4 completed NOLA Morrison, [facility] 12/23/2023 20:11:59 Past Encounters Encounter ID Performer Location Encounter Start Date Encounter Closed Date Diagnosis/Indication Diagnosis SNOMED-CT Code Diagnosis ICD10 Code Diagnosis Note [id number] [place] [place] [address] [place] [address] 02/22/2000 09:00:00 04/01/2008 02:02:29 [id number] [place] [facility] [place] [address] [facility] [place] [address] 07/30/2000 13:30:00 04/01/2008 02:02:29 [id number] [facility] [place] [address] [place] [address] 07/30/2000 12:15:00 04/01/2008 02:02:29 [id number] [facility] [place] [address] [place] [address] 03/13/2000 11:15:00 04/01/2008 02:02:29 [id number] [facility] [place] [address] [place] [address] 05/24/2001 09:15:00 04/01/2008 02:02:29 [id number] [place] , [facility] [place] [address] [place] [address] 08/02/2001 09:17:12 04/01/2008 02:02:29 [id number] [place] , [facility] [place] [address] [place] [address] 08/02/2001 00:00:00 04/01/2008 02:02:29 [id number] [place] [facility] [place] [address] [place] [address] 08/02/2001 08:22:20 04/01/2008 02:02:29 [id number] [facility] [place] OFFICE [address] [place] [address] 08/15/2001 09:02:03 04/01/2008 02:02:29 [id number] [facility] [place] [address] [place] [address] 1 08/23/2001 14:00:47 04/01/2008 02:02:29 [id number] [facility] [place] [address] [place] [address] 1 03/26/2003 15:35:29 03/27/2003 09:46:53 [id number] [facility] [place] [address] [place] [address] 1 05/21/2003 15:15:27 05/22/2003 07:48:28 [id number] Radiology , [facility] [address] [place] [address] 1 06/02/2003 08:58:25 06/02/2003 11:45:31 [id number] Radiology , [facility] [address] [place] [address] 1 06/02/2003 00:00:00 04/01/2008 02:02:29 [id number] LAB - [facility] [address] [place] [address] 1 06/02/2003 07:29:04 06/02/2003 12:14:49 [id number] [place] - [facility] [place] [address] [place] [address] 1 09/16/2003 07:26:20 09/16/2003 08:28:33 [id number] FP [facility] [place] [address] [place] [address] 1 10/14/2003 16:25:54 10/15/2003 08:23:03 [id number] LAB - [facility] [address] [place] [address] 1 01/20/2004 07:28:04 01/20/2004 08:08:41 [id number] Radiology , [facility] [address] [place] [address] 1 06/23/2004 09:21:27 06/24/2004 08:10:35 [id number] [facility] , [facility] [address] [place] [address] 1 06/23/2004 00:00:00 04/01/2008 02:02:29 [id number] [facility] [place] [address] [place] [address] 1 07/01/2004 16:26:40 07/04/2004 09:06:26 [id number] [facility] [place] [address] [place] [address] 1 07/05/2004 11:25:55 07/05/2004 17:39:27 [id number] [facility] [place] [address] [place] [address] 1 07/06/2004 11:17:37 07/07/2004 08:54:16 [id number] [facility] [place] [address] [place] [address] 1 07/12/2004 00:00:00 04/01/2008 02:02:29 [id number] LAB - [facility] [address] [place] [address] 1 07/12/2004 07:31:14 07/12/2004 08:15:38 [id number] [facility] [place] [place] [address] [place] [address] 1 07/19/2004 09:55:42 07/19/2004 13:43:54 [id number] [facility] [address] [place] [address] 1 09/30/2004 07:57:59 09/30/2004 17:54:01 [id number] [place] [facility] [place] [address] [place] [address] 1 10/14/2004 16:19:01 10/14/2004 17:25:32 [id number] LAB - [facility] [place] [address] [place] [address] 1 01/13/2005 07:38:03 01/13/2005 08:32:44 [id number] [facility] [place] [place] [address] [place] [address] 1 01/12/2005 15:12:47 01/16/2005 15:37:17 [id number] Radiology , [facility] [address] [place] [address] 1 01/16/2005 14:05:52 01/16/2005 14:30:13 [id number] Radiology , [facility] [place] [address] 1 01/16/2005 00:00:00 04/01/2008 02:02:29 [id number] [facility] [place] [place] [address] [place] [address] 1 01/26/2005 11:42:51 01/27/2005 08:57:30 [id number] LAB - [address] [place] [address] 1 01/26/2005 12:40:52 01/26/2005 12:41:14 [id number] [facility] [place] [place] [address] [place] [address] 1 07/03/2005 09:13:19 07/04/2005 09:09:07 [id number] Radiology , [address] [place] [address] 1 07/03/2005 08:52:34 07/04/2005 08:31:14 [id number] Radiology , [address] [place] [address] 1 07/03/2005 00:00:00 04/01/2008 02:02:29 [id number] LAB - [address] [place] [address] 1 07/12/2005 07:34:12 07/12/2005 08:24:19 [id number] Radiology , [address] [place] [address] 1 07/20/2005 15:30:44 07/20/2005 15:36:14 [id number] Radiology , [address] [place] [address] 1 07/20/2005 00:00:00 04/01/2008 02:02:29 [id number] [facility] [place] [place] [address] [place] [address] 1 08/15/2005 08:27:36 08/15/2005 14:16:22 [id number] Radiology , [address] [place] [address] 1 10/16/2005 13:55:03 10/16/2005 14:35:40 [id number] Radiology , [facility] [address] [place] [address] 1 10/16/2005 00:00:00 04/01/2008 02:02:29 [id number] , [facility] [place] [address] [place] [address] 1 10/16/2005 13:19:22 10/16/2005 14:46:38 [id number] , [facility] [place] [place] [address] [place] [address] 1 01/04/2006 15:14:37 01/09/2006 08:20:32 [id number] LAB - [facility] [place] [address] [place] [address] 1 01/24/2006 08:14:30 01/24/2006 08:42:49 [id number] Radiology , [facility] [address] [place] [address] 1 04/18/2006 08:49:08 04/19/2006 08:27:28 [id number] Radiology , [address] [place] [address] 1 04/18/2006 00:00:00 04/01/2008 02:02:29 [id number] LAB - [address] [place] [address] 1 07/17/2006 08:31:51 07/17/2006 08:31:54 [id number] Radiology , [address] [place] [address] 1 08/09/2006 08:50:55 08/09/2006 12:10:35 [id number] Radiology , [facility] [place] [address] 1 08/09/2006 00:00:00 04/01/2008 02:02:29 [id number] FP, [facility] [place] [place] [address] [place] [address] 1 08/09/2006 08:00:33 08/10/2006 07:33:25 [id number] Radiology , [address] [place] [address] 1 11/09/2006 15:29:39 11/09/2006 15:57:30 [id number] Radiology , [facility] [place] [address] 1 08/12/2007 10:44:10 08/12/2007 14:00:12 [id number] LAB - [facility] [place] [address] 1 08/12/2007 08:41:51 08/12/2007 08:41:59 [id number] [facility] [place] [place] [address] [place] [address] 1 08/15/2007 10:56:20 08/19/2007 09:13:16 [id number] Radiology , [facility] [place] [address] 1 08/15/2007 10:34:40 08/15/2007 13:21:52 [id number] Radiology , [facility] [address] [place] [address] 1 08/15/2007 12:20:18 08/15/2007 13:19:10 [id number] Physical Therapy, [facility] [place] [address] 1 09/04/2007 08:49:17 09/04/2007 08:49:37 [id number] Physical Therapy, [facility] [place] [address] 1 09/10/2007 13:28:10 09/10/2007 13:28:56 [id number] Physical Therapy, [address] [place] [address] 1 09/12/2007 10:46:09 09/12/2007 10:46:53 [id number] Radiology , [facility] [place] [address] 1 11/15/2007 08:18:24 11/15/2007 11:24:46 [id number] Radiology , [facility] [place] [address] 1 11/15/2007 00:00:00 04/01/2008 02:02:29 [id number] [facility] [place] [place] [address] [place] [address] 1 01/27/2008 13:39:41 04/01/2008 02:02:29 [id number] LAB - [facility] [place] [address] 1 02/11/2008 07:52:04 02/11/2008 07:52:08 [id number] Radiology , [facility] [place] [address] 1 02/19/2008 14:54:39 02/19/2008 15:26:44 [id number] Radiology , [facility] [place] [address] 1 03/19/2008 08:19:18 03/19/2008 13:32:07 [id number] [facility] [place] [place] [address] [place] [address] 1 05/26/2008 11:06:11 05/27/2008 09:00:24 [id number] [facility] [place] [address] [place] [address] 1 07/29/2008 08:30:14 07/30/2008 08:08:39 [id number] Radiology , [facility] [address] [place] [address] 1 09/01/2008 08:19:41 09/03/2008 10:34:49 [id number] [facility] [place] [place] [address] [place] [address] 1 09/25/2008 11:52:26 09/29/2008 16:21:47 [id number] [facility] [place] [place] [address] [place] [address] 1 10/15/2008 08:28:42 10/21/2008 08:29:02 [id number] Radiology , [facility] [address] [place] [address] 1 10/15/2008 08:50:26 10/23/2008 10:03:59 [id number] [facility] [place] [address] [place] [address] 1 09/10/2008 08:35:43 09/10/2008 08:35:46 [id number] [facility] [place] [place] [address] [place] [address] 1 02/01/2009 09:05:06 02/01/2009 14:31:40 [id number] [facility] [place] [place] [address] [place] [address] 1 05/11/2009 14:52:22 05/11/2009 16:49:31 [id number] [facility] [place] [place] [address] [place] [address] 1 08/02/2009 08:37:11 08/02/2009 10:53:44 [id number] Radiology , [facility] [address] [place] [address] 1 09/14/2009 08:40:43 09/15/2009 10:43:40 [id number] Radiology , [facility] [address] [place] [address] 1 09/23/2009 13:47:04 09/24/2009 11:00:24 [id number] [place] [facility] [place] [address] [place] [address] 1 02/23/2010 08:46:52 02/23/2010 11:47:25 [id number] Radiology , [facility] [address] [place] [address] 1 03/22/2010 08:14:23 03/24/2010 10:36:38 [id number] , [facility] [address] [place] [address] 1 03/22/2010 08:15:38 03/22/2010 11:51:50 [id number] , [facility] [address] [place] [address] 1 09/20/2010 08:09:37 09/20/2010 17:24:29 [id number] , [facility] [address] [place] [address] 1 01/17/2011 15:43:36 01/17/2011 15:49:26 [id number] , [facility], [address] [place] [address] 1 03/20/2011 08:02:32 03/21/2011 15:13:[id number] [place] [address] 1 09/22/2011 10:26:54 09/22/2011 11:31:50 [id number] Meredith Uribe NP , [address] [place] [address] 1 11/24/2011 14:39:12 11/24/2011 15:27:56 [id number] Kumar Francis [address] [place] [address] 1 11/24/2011 15:32:53 11/29/2011 08:03:24 [id number] ANTON Nayak, [address] [place] [address] 1 03/25/2012 08:11:32 03/25/2012 09:01:48 [id number] [place] [address] [place] [address] 1 10/16/2012 09:04:01 10/16/2012 09:34:33 [id number] , [facility] [address] [place] [address] 1 12/17/2012 07:56:22 12/17/2012 08:31:43 Influenza vaccine needed [id number] 106 Right lowe r quadrant pain 840317882 [id number] Libby Espinosa MA , [facility] [place] [address] [place] [address] 1 04/04/2013 08:18:10 04/04/2013 09:13:14 Adult health examination [id number] see Risk Assessment and Lifestyle Change Counseling section above Benign ess ential hypertension 4618465 Blood pressure at goal Mixed hyperlipidemia 919479408 Cholestero l is at goal Continue to work on diet and exercise as discussed [id number] Meredith Uribe NP , [facility] [place] [address] [place] [address] 1 10/07/2013 08:14:04 10/07/2013 08:59:15 Benign essential hypertension 7796928 Blood pressure at goal Mixed hyperlipidemia 528201588 Cholestero l is at goal Continue to work on diet and exercise as discussed Right lowe r quadrant pain 269453879 [id number] [facility], OFFICE [address] [place] [address] 1 04/28/2014 08:11:11 04/28/2014 09:07:56 Benign essential hypertension 0846576 Blood pressure at goal Mixed hyperlipidemia 841773021 Cholestero l is at goal Continue to work on diet and exercise as discussed Adult heal th examination 744869713 see Risk Assessment and Lifestyle Change Counseling section above Screening for malignant neoplasm of cervix 071769676 Right lowe r quadrant pain 912887035 [id number] Meredith Uribe NP , [facility] [place] [address] [place] [address] 1 10/27/2014 08:13:51 10/27/2014 09:12:15 Lifestyle 212565150 Mixed hyperlipidemia 928102235 Cholestero l is at goal Continue to work on diet and exercise as discussed Benign ess ential hypertension 6491592 Blood pressure at goal Impaired f asting glycemia 446563081 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 [id number] Varicella vaccination 30613415 Administra tion of diphtheria and tetanus vaccine 00831747 [id number] Chelly López RN , [facility] [place] [address] [place] [address] 1 01/01/2015 10:04:39 01/01/2015 10:08:41 Active or passive immunization 191295176 Z23 [id number] Meredith Uribe NP , [facility] [place] [address] [place] [address] 1 05/07/2015 10:13:11 05/07/2015 11:10:40 Mixed hyperlipidemia 048511381 E78.2 Cholestero l is at goal Continue to work on diet and exercise as discussed Benign ess ential hypertension 1424415 I10 Blood pressure at goal Impaired f asting glycemia 035043614 R73.01 Adult heal th examination 894274362 Z00.00 see Risk Assessment and Lifestyle Change Counseling section above Screening for malignant neoplasm of colon 066317243 Z12.11 Referral for a DIRECT booked colonoscop y. This patient is a healthy ASA Class 1 or 2 patient (only mild systemic disease), or a STABLE, well controlled insulin dependent diabetic. They do not have serious cardiac disease ie IA/angiopl asty within 1 year, symptomati c CHF; renal failure with CKD 4 or 5; take Coumadin, Plavix, Aggrenox, etc; nor take chronic narcotics. [Patients who take chronic narcotics should be referred to [facility] for a propofol procedure due to possible inability to sedate adequately with conscious sedation.] Family his tory of malignant neoplasm of ovary 363873528 Z80.41 Family his tory of breast cancer 048051531 Z80.3 [id number] Marshall Back MD [facility], [facility] [address] [facility] [address] 1 08/24/2015 08:32:24 08/24/2015 13:32:47 [id number] Meredith Uribe NP , [facility] [place] [address] [place] [address] 1 12/03/2015 08:08:39 12/03/2015 08:40:40 Benign essential hypertension 7847606 I10 Blood pressure at goal Mixed hyperlipidemia 267 613060 E78.2 Cholestero l is slightly above goal at 136. Maribell wanted to work on diet and exercise and revisit the need to increase Lovastatin dose at her next visit. Active or passive immunization 215738663 Z23 Impaired f asting glycemia 089511956 R73.01 Continue to work on diet and exercise. Hip pain 48207629 M25.55 9 Discussed. No interventi on at this time. [id number] Meredith Uribe NP , [facility] [place] [address] [place] [address] 1 08/04/2016 10:10:49 08/04/2016 10:56:02 Adult health examination 816790963 Z00.00 see Risk Assessment and Lifestyle Change Counseling section above Benign ess ential hypertension 6731663 I10 Mixed hyperlipidemia 267 691224 E78.2 Impaired f asting glycemia 091740021 R73.01 Continue to work on diet and exercise. Family his tory of breast cancer 403345759 Z80.3 Followed with mammograms at [facility]. Family his tory of cancer of colon 068171153 Z80.0 Colonoscop y 2015, f/u 5 years. 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 of meniscal injury, colateral ligamentre ferred to Injury Clinic at [facility] Ortho [id number] Meredith Uribe NP , [facility] [place] [address] [place] [address] 1 02/06/2017 09:01:57 02/06/2017 09:43:42 Benign essential hypertension 8435654 I10 Blood pressure at goal Mixed hyperlipidemia 267 941043 E78.2 Cholestero l is at goal Continue to work on diet and exercise as discussed Impaired f asting glycemia 658773798 R73.01 Continue to work on diet and exercise. Tear of me niscus of knee 197447130 S83.206D [id number] ANTON Nayak, [facility] [place] [address] [place] [address] 1 06/11/2017 09:16:57 06/11/2017 09:56:55 Right lower quadrant pain 307708587 R10.31 [id number] ANTON Nayak, [facility] [place] [address] [place] [address] 1 08/17/2017 08:15:46 08/17/2017 10:08:36 Adult health examination 549371635 Z00.00 see Risk Assessment and Lifestyle Change Counseling section above Depression screening 171 Z13.89 depression screening tool administer ed, entered into emr, scored and discussed, time greater than 7.5 minutes Mixed hyperlipidemia 267 315847 E78.2 Cholestero l is at goal Continue to work on diet and exercise as discussed Benign ess ential hypertension 7213981 I10 Blood pressure at goal Family his tory of breast cancer 952391497 Z80.3 Followed with mammograms at [facility]. Family his tory of cancer of colon 086339356 Z80.0 Colonoscop y 2015, f/u 5 years. Pain in right knee 03868 36054 30304 M25.561 Screening for malignant neoplasm of cervix 245422910 Z12.4 [id number] [place], [facility] [place] [address] [place] [address] 1 11/30/2017 13:26:28 11/30/2017 13:44:44 Active or passive immunization 959465418 Z23 [id number] Meredith Uribe NP , [facility] [place] [address] [place] [address] 1 02/15/2018 08:53:47 02/15/2018 09:29:10 Mixed hyperlipidemia 838336880 E78.2 Cholestero l is at goal Continue to work on diet and exercise as discussed Benign ess ential hypertension 0292482 I10 Blood pressure at goal Blood pressure NOT at goal. [id number] ANTON Nayak, [facility] [place] [address] [place] [address] 1 11/29/2018 09:24:46 11/29/2018 10:35:49 Adult health examination 655149253 Z00.00 see Risk Assessment and Lifestyle Change Counseling section above Depression screening 171 Z13.89 depression screening tool administer ed, entered into emr, scored and discussed, time greater than 7.5 minutes Mixed hyperlipidemia 267 383208 E78.2 Cholestero l is at goal Continue to work on diet and exercise as discussed Benign ess ential hypertension 9300980 I10 Blood pressure at goal Blood pressure NOT at goal. Family his tory of cancer of colon 739213275 Z80.0 Colonoscop y 2015, f/u 5 years. Impaired f asting glycemia 796879272 R73.01 Continue to work on diet and exercise. Family his tory of breast cancer 067502222 Z80.3 Followed with mammograms at [facility]. Active or passive immunization 574908865 Z23 Right lowe r quadrant pain 175407951 R10.31 [id number] Jackeline Mendez MD , [facility] [place] [address] [place] [address] 1 06/16/2019 07:58:15 06/17/2019 15:26:21 Essential hypertension 77003468 I10 Blood pressure at home has been below 140/90. Continue same. Ordered labs before next visit. Mixed hyperlipidemia 267 976951 E78.2 On statin therapy, LDL below 130. Continue same. Fasting labs with blood sugar before next visit. Impaired f asting glycemia 280269939 R73.01 Her older brother had diabetes, not sure about family history in older generation . Diet reviewed. Check fasting sugar and hemoglobin A1c before next visit. Gastroesop hageal reflux disease 329018153 K21.9 Symptoms controlled with omeprazole . Continue same. Due for another endoscopy later this year. [id number] Jackeline Spivey . MD [place], [facility] [place] [address] [place] [address] 1 12/01/2019 09:44:46 12/03/2019 15:40:20 Vesicular hand eczema 538065206 L30.8 Dyshidroti c eczema. Patient to minimize exposure to water, use a regular moisturize r frequently , wear gloves when cleaning and washing dishes. Will provide moderate potency topical steroid and dermatolog y consult.di shidrotic eczema Benign ess ential hypertension 4674444 I10 at target below 140/90. continue same. Mixed hyperlipidemia 267 627365 E78.2 On statin therapy, LDL below 130. Continue same. Fasting labs with blood sugar before next visit. Impaired f asting glycemia 427868462 R73.01 Her older brother had diabetes, not sure about family history in older generation . Diet reviewed. Check fasting sugar and hemoglobin A1c before next visit. Gastroesop hageal reflux disease 216269274 K21.9 Symptoms controlled with omeprazole . Continue same. Due for another endoscopy later this year. [id number] Destin Ludwig MD , [facility] [place] [address] [place] [address] 1 01/21/2020 08:50:43 01/21/2020 14:50:52 Blood in urine 63901848 R31.9 Call office if you develop new or concerning symptoms.P atient has negative PAP in 2018Patien t had US in 2019, repeat in 3-6 months Urinary tr act infectious disease 94075810 N39.0 Finish all antibiotic s as prescribed below, drink plenty of fluids and f/u if you develop new or concerning symptoms or symptoms not improving over the next 2-3 days. . Large ovary 78621046 N83 .8 Repeat US of ovary. [id number] Jackeline Mendez MD , [facility] [place] [address] [place] [address] 1 07/29/2020 08:54:41 07/29/2020 10:02:48 Adult health examination 919759168 Z00.00 USPSTF guidelines reviewed and discussed with patient. Colonoscop y and mammograph y up to date. Vaccinatio ns up to date except for recombinan t shingles vaccine. Health care proxy in place. Counseling 502538030 Z71 .9 including cardiovasc ular risk reduction counseling . No aspirin indicated. Will change statin to a more potent one, see below. Depression screening 171 977671 Z13.31 depression screening tool administer ed, entered into emr, scored and discussed, time greater than 7.5 minutes. Negative screening. Screening for alcohol abuse 625858547 Z13.39 negative screening. Essential hypertension 49681984 I10 BP at target below 130/80. continue same. Mixed hyperlipidemia 267 063623 E78.2 Cholestero l is not at goal, switch to atorvastat in to lower LDL and cardiovasc ular risk further.. Continue to work on diet and exercise as discussed Vesicular hand eczema 40 8576019 L30.8 Dyshidroti c eczema. Patient to minimize exposure to water, use a regular moisturize r frequently , wear gloves when cleaning and washing dishes. Will provide moderate potency topical steroid. [id number] Sarah Medeiros RN [facility], [facility] [address] [place] [address] 10/27/2020 06:59:55 10/27/2020 12:32:39 [id number] Jackeline Mendez MD , [facility] [place] [address] [place] [address] 1 01/25/2021 10:01:55 01/25/2021 11:08:54 Essential hypertension 45177754 I10 BP at target below 130/80. continue same. Mixed hyperlipidemia 267 027689 E78.2 Cholestero l is at goalContin ue to work on diet and exercise as discussed Gastroesop hageal reflux disease [id number] K21.9 Symptoms controlled with omeprazole . Continue same. will have another endoscopy by Dr Back next year. Impaired f asting glycemia [id number] R73.01 worsening, HgA1c 6.3, prediabete s.discusse d metformin, agreed to start metformin to decrease insulin resistance and preserve pancreatic islet function and delay diagnosis of DM.continu e to minimize alcohol and sweets and cut back on carbs. [id number] Jackeline Spivey . MD BUTT, [facility] [place] [address] [place] [address] 05/02/2021 10:33:44 05/02/2021 11:03:43 Essential hypertension [id number] I10 BP at target below 130/80. continue same. Impaired f asting glycemia [id number] R73.01 improving, HgA1c 6.1, prediabete s.continue to minimize alcohol and sweets and cut back on carbs.stay active. Mixed hyperlipidemia [id number] E78.2 Cholestero l is at goalContin ue to work on diet and exercise . Gastroesop hageal reflux disease [id number] K21.9 Symptoms controlled with omeprazole . Dr Back told her to take it less than daily. Family his tory of cancer of colon 995143989 Z80.0 colonoscop y UTD. Vesicular hand eczema 40 7696682 L30.8 Dyshidroti c eczema. does well when using gloves for housework, uses topical steroids prn. Family his tory of breast cancer 163913498 Z80.3 mammo UTD. [id number] Jackeline Spivey . [place], [facility] [place] [address] [place] [address] 08/29/2021 13:53:26 08/29/2021 14:59:11 Adult health examination 079215164 Z00.00 USPSTF guidelines reviewed and discussed with patient. Colonoscop y 10-27-20, redo 5 Y, and mammograph y 01-05-21up to date. Vaccinatio ns up to date except we need date of one more recombinan t shingles vaccine. Health care proxy in place. Counseling [id number] Z71 .9 including cardiovasc ular risk reduction counseling , no asa, is on statin. Depression screening 171 654996 Z13.31 depression screening tool administer ed, entered into emr, scored and discussed, time greater than 7.5 minutes, negative screen. Screening for alcohol abuse 477959630 Z13.39 negative screening. Mixed hyperlipidemia 267 535189 E78.2 Madison jordan is at goalContin ue to work on diet and exercise . Essential hypertension 37907931 I10 BP at target below 130/80. continue same. Gastroesop hageal reflux disease 716352778 K21.9 Symptoms controlled with omeprazole . takes it every 3rd day. Family his tory of cancer of colon 485507813 Z80.0 colonoscop y UTD. every 5 Y. Impaired f asting glycemia 504405157 R73.01 improving, HgA1c 6.0, prediabete s.continue to minimize alcohol and sweets and cut back on carbs.stay active. Vesicular hand eczema 40 0606696 L30.8 Dyshidroti c eczema. does well when using gloves for housework, uses topical steroids prn. Family his tory of breast cancer 788794351 Z80.3 mammo UTD. [id number] Aishwarya Siddiqui er, [employer] , [facility] [place] [place] [address] [place] [address] 03/08/2022 12:08:50 03/08/2022 12:51:54 Essential hypertension 09289627 I10 Controlled , continue hctz 25 daily and losartan 25 mg daily Mixed hyperlipidemia 267 411423 E78.2 Cholestgabriela jordan is at goalContin ue to work on diet and exercise as discussedc ontinue atorvastat in 20 daily Pain of le ft hip joint [id number] 62992 M25.552 Persistent pain in L hip, worsening w exertionin jection in L hip in past helpful, is wearing off- referral to Ortho for re-evaluat ion and possible corticoste roid injection [id number] Jackeline Spivey . , [facility] [place] [address] [place] [address] 10/05/2022 09:53:47 10/05/2022 14:17:52 Adult health examination 060756498 Z00.00 USPSTF guidelines reviewed and discussed with patient. Colonoscop y 10-27-20, redo 5 Y, and mammograph y fall 2001.up to date. Vaccinatio ns up to date. Health care proxy in place.CV counseling done. Depression screening 171 707498 Z13.31 depression screening tool administer ed, neg Screening for alcohol abuse 780009235 Z13.39 Alcohol use screening tool administer ed, neg Benign ess ential hypertension 0357139 I10 at target below 130/80. continue same. Gastroesop hageal reflux disease 870494371 K21.9 Symptoms controlled with omeprazole . takes it prn. Mixed hyperlipidemia 267 146489 E78.2 Cholestero l is at goal, continue sameContin ue to work on diet and exercise . Family his tory of cancer of colon 952964285 Z80.0 colonoscop y UTD. every 5 Y. Impaired f asting glycemia 765015106 R73.01 worsening. HgA1c 6.3, prediabete s.continue to minimize alcohol and sweets and cut back on carbs.stay active. Degenerati ve joint disease of hand 26552314 M19.049 may use OTC diclofenac /Voltaren gel. [id number] Jackeline Spivey . , [facility] [place] [place] [address] [place] [address] 04/30/2023 10:33:57 04/30/2023 11:18:32 Benign essential hypertension 1771586 I10 at target at or below 130/80. continue same. at home BP 125/78 range. Mixed hyperlipidemia 267 259060 E78.2 Cholestero l is at goal, continue sameContin ue to work on diet and exercise . Impaired f asting glycemia 847144603 R73.01 improved, HgA1c 6.2, prediabete s.continue to minimize alcohol and sweets and cut back on carbs.stay active. Vesicular hand eczema 40 7392685 L30.8 Dyshidroti c eczema. does well when using gloves for housework, uses topical steroids prn.has not needed them for a long while. Gastroesop hageal reflux disease 602871921 K21.9 Symptoms controlled with omeprazole . takes it prn. Osteoarthr itis of finger joint 530420246 M19.049 inflamed right now, to take ibuprofen, take omeprazole with it, may see hand surgeon if no change and wanted a steroid shot. [id number] Jackeline Spivey . , [facility] [place] [place] [address] [place] [address] 10/09/2023 11:17:08 10/09/2023 12:22:33 Benign essential hypertension 0704105 I10 at target at or below 130/80. continue same. at home BP 125/78-130 /80 range. Family his tory of breast cancer 195311500 Z80.3 mammo UTD. ordered for Jan. Family his tory of cancer of colon 184585600 Z80.0 had polyps. colonoscop y UTD. every 5 Y. Gastroesop hageal reflux disease 493388846 K21.9 Symptoms controlled with omeprazole . takes it prn. Impaired f asting glycemia 067330107 R73.01 improved, HgA1c 6.1, prediabete s.continue to minimize alcohol and sweets and cut back on carbs.stay active. Mixed hyperlipidemia 267 868516 E78.2 Cholestero l is at goal, continue sameContin ue to work on diet and exercise . Vesicular hand eczema 40 5915116 L30.8 Dyshidroti c eczema. does well when using gloves for housework, uses topical steroids prn. Adult heal th examination 325931471 Z00.00 USPSTF guidelines reviewed and discussed with patient. Colonoscop y 10-27-20, redo 5 Y, and mammograph y fall 2022, has one scheduled at [facility] for 2023. Vaccinatio ns up to date. Health care proxy in place.CV counseling done. on statin, no asa indicated. Depression screening 171 832543 Z13.31 depression screening tool administer ed, negative Screening for alcohol abuse 162332736 Z13.39 Alcohol use screening tool administer ed, negative Pain of to e of left foot [id number] 13922 M79.675 pain over dorsal aspect of MTP joints, ? neuroma, to see ortho. Lesion of oral mucosa 10 47911078 864378 K13.70 nodule in mucosa under upper lip, will refer to oral surgeon for evaluation , states it gets larger at times and causes pain. [id number] Jackeline Mendez MD , [facility] [place] [place] [address] [place] [address] 01/10/2024 10:52:21 01/10/2024 11:50:49 Lesion of oral mucosa 9574376363 097272 K13.70 nodule in mucosa under upper lip, ? mucocele? she will return to oral surgeon to discuss her concerns, but advised her excisional biopsy is a good idea. [id number] CHIP ACOSTA MD , [facility] [place] [place] [address] [place] [address] 04/21/2024 09:57:26 2024 14:20:46 Benign essential hypertension 0308457 I10 At goal <130/80, continue current regimen. Gastroesop hageal reflux disease 379106218 K21.9 Continue omprazole. Impaired f asting glycemia 549025509 R73.01 A1c 6.4%. Recommend increasing to 1000 mg ER - if tolerated will send new rx. Mixed hyperlipidemia 267 939707 E78.2 At goal, continue statin. Degenerati ve joint disease involving multiple joints 852417002 M15.1 Would like to see specialist regarding arthritis. Family his tory of breast cancer 490331462 Z80.3 Goes to [facility]. Has had one benign mass removed. Monitoring one mass right now on each side. Health Concerns Section Related Observation LastModified by Organization Detai ls LastModified Time None Recorded Concern Status LastModified by Organization Details LastModified Time None Recorded Advance Directives Directive None Recorded Payers Encounter Date Sequence Insurance Name Policy Number Policy Figueredo Covered Member ID Figueredo Member ID Guarantor Name 10/05/2022 1 [place] [employer] Maribell Colby [id number] 2 Maribell Colby 10/05/2022 2 [facility] - MEDICARE ENHANCE (INDEMNITY PLAN) Maribell Colby [id number] Maribell Colby 04/30/2023 1 [place] [employer] Maribell Colby [id number] Maribell Colby 04/30/2023 2 [facility] - MEDICARE ENHANCE (INDEMNITY PLAN) Maribell Jordan Lasha [id number] Maribell Jordan Lasha 10/09/2023 1 [place] [employer] Maribell Jordan Lasha [id number] 2 Maribell Jordan Lasha 10/09/2023 2 [facility] - MEDICARE ENHANCE (INDEMNITY PLAN) Maribell Manuel Colby [id number] Maribell Jordan Lasha 01/10/2024 1 [place] [facility] Maribell Manuel Colby [id number] 2 Maribell Jordan Lasha 01/10/2024 2 [facility] - MEDICARE ENHANCE (INDEMNITY PLAN) Maribellkimberli Colby [id number] Maribell Manuel Colby 04/21/2024 1 [place]: [facility] Maribell Manuel Colby [id number] 2 Maribell Jordan Lasha 04/21/2024 2 [facility] - MEDICARE ENHANCE (INDEMNITY PLAN) Maribellkimberli Colby [id number] Maribell Colby Notes Date Note Type Note Provider Name and Address Organization Details Recorded Time 3 text/html Risk Assessment and Lifestyle Change Counseling 65+ (Medicare)Reported bypatient.Coronary Artery Disease Risk Assessment:Family History of Coronary Artery Disease; No personal history of diabetes; No history of peripheral vascular disease, AAA, or carotid disease; No personal history of coronary artery disease Breast Cancer Risk Assessment:Family history of breast cancer; No history of breast cancer or dcis Colon Cancer Risk Assessment:Family history of pre cancerous colon polyps or colon cancer Lung Cancer Risk Assessment:Never smoked Fracture Risk Assessment:No unexplained fracture; balance is normal; No use of corticosteroids Cognitive/Behavioral Risk Assessment:No personal history of mental illness; No family history of mental illness; Do you or anyone else have concerns about your memory? no; BMI reviewed normal ; Reviewed depression screening less than 7.5 minutes; no cognitive impairment. Safety Risk Assessment:Has rails on steps; No falls; No evidence of abuse/neglect; Do you feel safe in your current relationship?YES; Have you ever been a victim of physical/emotional/sexual abuse?NO Functional Status:Patient does not have trouble hearing the television or radio when others do not.; Patient does not have to strain or struggle to hear/understand conversations; Patient does not need help with preparing meals, transportation, shopping, taking medicine, managing finances, or other activities of daily living.; Patient does not have visual loss that interferes with daily activities; Does not live alone; Patient was not unsteady and did not take longer than 30 seconds during the timed get up and go test.; Patient reports no falls in the past 6 months. Diet:Counseled about appropriate portion size; Counseled about eating a diet low in trans and saturated fats and high in fiber, fruits and vegetables; Counseled about appropriate calcium intake and good dietary sources of calcium.; Counseled about the importance of maintaining a positive calcium balance and taking 1000 iu Vitamin D daily. Exercise counseling:Discussed the importance of daily physical activity Safety:Counseled about protecting skin from the sun and lowering the risk of skin cancer; Counseled about home safety including use of smoke detectors, CO detectors, keeping home water temperature less than 120; Counseled about use of seat belts; Counseled about fall risk from throw rugs and the need for hand rails on steps and in bathVMG HyperlipidemiaReported bypatient.Duration:chronic Control:well controlled; LDL has been 100-130, goal is <100; treated with medications; Patient understands medications are to lower cholesterol Compliance:compliant with medications; compliant with follow-up visits; compliant with diet Barriers to CareNo identified barriers to care Context:Nonsmoker; No ischemic heart disease; No peripheral vascular disease (22433); No diabetes; No carotid artery stenosis Associated Symptoms:normal liver function test; no muscle pain; no fatigue; no chest discomfort; no dyspnea; no change in exercise capacityVMG HypertensionReported bypatient.Context:No ischemic heart disease; No kidney disease; No history of CVA; No congestive heart failure; No history of transient ischemic attacks; No peripheral vascular disease; No history of diabetes Control:BP Goal less than (130/80); Treated with medications; Patient understands medications are to lower blood pressure Compliance:Compliant with medications; Compliant with diet; Compliant with exercise; Compliant with follow-up visits Barriers to CareNo identified barriers to care Self Care:Using home BP monitor occasionally home BPs range 120-130/80-85 Associated Symptoms:No chest pain; No shortness of breath; No edema; No fatigue; No palpitations; No decline in exercise capacity; No snoring Patient with history of hypertension, hyperlipidemia, impaired fasting glucose, hand eczema and acid reflux presents for wellness exam. Constitutional; no feverENT; no GONZALEZ, no dizzinessCardiac; no CP, no JEFF, no palpitations, no orthopneaPulmonary; no shortness of breath, no cough, no wheezingGI; no abdominal pain, No N/V, no bloody stoolsUrinary; No hematuria, no dysuria. has frequencyMusculoskeletal; no myalgia, arthritis in her hands, considering using OTC voltaren HgA1c 6.3, up from before.LDL 100.6, glu 100, cr 0.7. nl GFR.On statin.GERD controlled with omeprazole. Jackeline Spivey. [address] [place] [address], [phone], [facility] 10/05/2022 10:51:06 4 text/html VMG HyperlipidemiaReported bypatient.Duration:chronic Control:well controlled; LDL has been 100-130, goal is <100; treated with medications; Patient understands medications are to lower cholesterol Compliance:compliant with medications; compliant with follow-up visits; compliant with diet Barriers to CareNo identified barriers to care Context:Nonsmoker; No ischemic heart disease; No peripheral vascular disease (34802); No diabetes; No carotid artery stenosis Associated Symptoms:normal liver function test; no muscle pain; no fatigue; no chest discomfort; no dyspnea; no change in exercise capacityVMG HypertensionReported bypatient.Context:No ischemic heart disease; No kidney disease; No history of CVA; No congestive heart failure; No history of transient ischemic attacks; No peripheral vascular disease; No history of diabetes Control:BP Goal less than (130/80); Treated with medications; Patient understands medications are to lower blood pressure Compliance:Compliant with medications; Compliant with diet; Compliant with exercise; Compliant with follow-up visits Barriers to CareNo identified barriers to care Self Care:Using home BP monitor occasionally home BPs range 120-130/80-85 Associated Symptoms:No chest pain; No shortness of breath; No edema; No fatigue; No palpitations; No decline in exercise capacity; No snoring Patient with history of hypertension, hyperlipidemia, impaired fasting glucose, hand eczema and acid reflux presents for medical management. Constitutional; no feverENT; recent GONZALEZ, no dizzinessCardiac; no CP, no JEFF, no palpitations, no orthopneaPulmonary; no shortness of breath, no cough, no wheezingGI; no abdominal pain, No N/V, no bloody stoolsUrinary; No hematuria, no dysuria.Musculoskeletal; no myalgia, arthritis in her neck and right middle finger and left toes are hurting her. hand eczema is much better, no current sx. recent labs LDL 98.6, glu 108, cr 0.8, GFR >60, HgA1c 6.2. Jackeline Spivey. [address] [place] [address], [phone], [facility] 04/30/2023 11:03:30 text/html Risk Assessment and Lifestyle Change Counseling (Medicare)Reported bypatient.Coronary Artery Disease Risk Assessment:Family History of Coronary Artery Disease; No personal history of diabetes; No history of peripheral vascular disease, AAA, or carotid disease; No personal history of coronary artery disease Breast Cancer Risk Assessment:Family history of breast cancer; No history of breast cancer or dcis Colon Cancer Risk Assessment:Family history of pre cancerous colon polyps or colon cancer Lung Cancer Risk Assessment:Never smoked Fracture Risk Assessment:No unexplained fracture; balance is normal; No use of corticosteroids Cognitive/Behavioral Risk Assessment:No personal history of mental illness; No family history of mental illness; Do you or anyone else have concerns about your memory? no; BMI reviewed normal ; Reviewed depression screening less than 7.5 minutes; no cognitive impairment. Safety Risk Assessment:Has grab bars in bathroom; Has rails on steps; No falls; No evidence of abuse/neglect; Do you feel safe in your current relationship?YES; Have you ever been a victim of physical/emotional/sexual abuse?NO Functional Status:Patient does not have trouble hearing the television or radio when others do not.; Patient does not have to strain or struggle to hear/understand conversations; Patient does not need help with preparing meals, transportation, shopping, taking medicine, managing finances, or other activities of daily living.; Patient does not have visual loss that interferes with daily activities; Does not live alone; Patient was not unsteady and did not take longer than 30 seconds during the timed get up and go test.; Patient reports no falls in the past 6 months. Diet:Counseled about appropriate portion size; Counseled about eating a diet low in trans and saturated fats and high in fiber, fruits and vegetables; Counseled about appropriate calcium intake and good dietary sources of calcium.; Counseled about the importance of maintaining a positive calcium balance and taking 1000 iu Vitamin D daily. Exercise counseling:Discussed the importance of daily physical activity Safety:Counseled about protecting skin from the sun and lowering the risk of skin cancer; Counseled about home safety including use of smoke detectors, CO detectors, keeping home water temperature less than 120; Counseled about use of seat belts; Counseled about fall risk from throw rugs and the need for hand rails on steps and in bathSocial DeterminantsReported bypatient.Living situationsteady place to live Living situation...do you have problems with the following:none of the above In the past 12 months, have you worried your food would run out before you had money to buy more?never true Within the past 12 months, the food just didn't last and you didn't have money to get more.never true Has lack of transportation kept you from medical appointments, meetings, work, etc?no In the past 12 months has the electric, gas, [employer] or water [employer] threatened to shut off services?no How hard is it for you to pay the very basics like food, house, medical care and housing?not hard at allVMG HyperlipidemiaReported bypatient.Duration:chronic Control:well controlled; LDL has been 100-130, goal is <100; treated with medications; Patient understands medications are to lower cholesterol Compliance:compliant with medications; compliant with follow-up visits; compliant with diet Barriers to CareNo identified barriers to care Context:Nonsmoker; No ischemic heart disease; No peripheral vascular disease (35206); No diabetes; No carotid artery stenosis Associated Symptoms:normal liver function test; no muscle pain; no fatigue; no chest discomfort; no dyspnea; no change in exercise capacityVMG HypertensionReported bypatient.Context:No ischemic heart disease; No kidney disease; No history of CVA; No congestive heart failure; No history of transient ischemic attacks; No peripheral vascular disease; No history of diabetes Control:BP Goal less than (130/80); Treated with medications; Patient understands medications are to lower blood pressure Compliance:Compliant with medications; Compliant with diet; Compliant with exercise; Compliant with follow-up visits Barriers to CareNo identified barriers to care Self Care:Using home BP monitor occasionally home BPs range 120-130/80-85 Associated Symptoms:No chest pain; No shortness of breath; No edema; No fatigue; No palpitations; No decline in exercise capacity; No snoring Patient with history of hypertension, hyperlipidemia, impaired fasting glucose, hand eczema and acid reflux presents for wellness exam. Constitutional; no feverENT; no GONZALEZ, no dizziness, over the last 6 months has noted a nodule on her upper lip that gets larger at times, her dentist told her not a dental problem Cardiac; no CP, no JEFF, no palpitations, no orthopneaPulmonary; no shortness of breath, no cough, no wheezingGI; no abdominal pain, No N/V, no bloody stoolsUrinary; No hematuria, no dysuria.Musculoskeletal; no myalgia, arthritis in her hands, considering using OTC voltaren gel, not sure if helping much. L hip bothers her for many years, hurts more when walks long distances. Has had steroid shots. L 2nd and 3rd toe are painful ll the time, even wakes up from toe pain, going on for 5-6 months. Also R big toe hurts too, hurt it a few years back. recent labs HgA1c 6.1, from before, glu 94, cr 0.8. nl GFR. april labs LDL 98.6,On statin.GERD controlled with omeprazole. Jackeline Spivey. [address] [place] [address], [phone], [facility] 10/09/2023 12:11:50 4 text/html nodule under upper lip, referred to oral surgeon when seen over the summer. Told she needs surgery for biopsy.States she felt the visit was perfunctory and wishes to discuss it. Jackeline Spivey. [address] [place] [address], [phone], [facility] 01/10/2024 11:48:54 5 text/html Patient with history of hypertension, hyperlipidemia, impaired fasting glucose, hand eczema and acid reflux presents for med management. HTN: losartan 25 mg. Pre-diabetes: last A1c was 6.4%. Metformin 500 mg ER and statin. OA: hands, hip injection with cortisone. Feet, uses orthotic. Sees liquified natural gas specialist [facility] at [facility] in [place]. Dr. Tineo. GERD: takes omeprazole three times a week. CHIP ACOSTA MD [address] [place] [address], [phone], [facility] 04/21/2024 17:57:59 OBGyn Episode No OBEpisode recorded.
--- NOTE | 2024-06-12 09:50 | MHC.AU.MED ---
Medical Clearance for Hearing Instrumentation Date: 06/12/24 Patient Name: Maribell Colby Date of : 1955 Primary Care Provider: Referring Provider: Naty Acosta MD We have seen your patient on 06/12/24 and have determined that they are a candidate for amplification (See accompanying report). Specifically, they would benefit from: Hearing aid use in the right ear Hearing aid use in the left ear Hearing aid use in both ears There is a statute that addresses Medical Evaluation Requirements prior to fitting a patient with a hearing aid. According to [place] statute 265 CMR:6.03(1), (a) General. Except as provided in 265 CMR 6.03(1)(b), a facility maintenance manager shall not sell a hearing aid unless the prospective user has presented to the facility maintenance manager a written statement signed by a licensed physician that states that the patient's hearing loss has been medically evaluated and the patient may be considered a candidate for a hearing aid. The medical evaluation must have taken place within the preceding six months. Please note: Due to the [place] Statute referenced above, we cannot accept a signature other than that of a licensed physician. MANAGEMENT REP and PA signatures cannot be accepted. I am in agreement with the above recommendation. There is no medical contraindication for hearing instrumentation. Physician Signature Date Physician Name (Printed)
== END 2024-06-12 08:22 | disposition home or self-care (01) ==
LOC: HO.SH 08:21
PROVIDERS: Visit Provider Family Medicine
DX: Z01.118 Encounter for examination of ears and hearing with other abnormal findings (principal); H90.3 Sensorineural hearing loss, bilateral
CPT/HCPCS: 92557

== ENCOUNTER 2024-07-03 14:39 | Outpatient (REF) | payer SELFPAY ==
--- OUTSIDE RECORDS SUMMARY | 2024-07-03 17:21 | XMS_ITS | Data Portability ---
Author Organization [facility] [place], [facility] Address [address] [place] [address] Care Team Providers Care Chief Legal Officer Name Role Phone CHIP ACOSTA Primary Care Provider [phone] Assessment Encounter Date Assessment Date Assessment LastModified [...] HbA1c (hemoglob in A1c), blood 2023 024 [facility], [address] [place] [address], [id number], 10/02/2023 14:29:48 BMP, serum or plasma 2023 024 [facility], [address] [place] [address], [id number], 10/04/2023 12:15:00 HbA1c (hemoglob in A1c), blood 2022 024 [facility], [address] [place] [address], [address], 04/26/2023 12:28:00 BMP, serum or plasma 2022 024 [facility], [address] [place] [address], [address], 04/26/2023 14:13:00 Referral hand surgeon referral 2024 025 [email or web address] Agatha eRdd MD, [address] [place] [address], [address], 04/23/2024 10:48:50 oral & maxillofa cial surgeon referral 2023 024 [email or web address] [facility], [address] [place] [address], [place], [address], 10/09/2023 12:24:14 orthopedi c surgeon referral 2023 024 [place] [facility], [address] [place] [address], [address], 10/18/2023 09:25:37 Procedures None recorded. Surgeries None recorded. Imaging None recorded. Medication Orders atorvasta tin 20 mg tablet 2024 025 [id number], [address] [place], [address], 04/21/2024 10:25:46 Patient TargetsNo targets recorded. Patient Instructions Encounter Date Encounter Id Patient Instructions Last Modified By Organization Details Last Modified Time 10/05/2022 [id number] advance directives: care instructions [email or web address] Not available 10/05/2022 10:49:15 preventing falls: care instructions [email or web address] Not available 10/05/2022 10:49:14 hearing loss: care instructions [email or web address] Not available 10/05/2022 10:49:14 well visit, over 65: care instructions [email or web address] Not available 10/05/2022 10:49:14 04/30/2023 [id number] I serve as the focal point for all health care services the patient needs. 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 Referring Physician: Chip Acosta [facility], Encounter Date: 04/21/2024 Results Created [...] furth er confi rmati on Not Available [address], [address], 09/25/2022 11:46:24 09/26/19 23 09/25/2022 HGB A1C estimated average glucose 134.1 mg/dL Not Available [address], [address], 09/25/2022 11:46:24 09/26/19 23 09/25/2022 BASIC METAB OLIC PANEL glucose 100 mg/dL 70-100 Not Available [address], [address], 09/25/2022 15:24:30 09/26/19 23 09/25/2022 BASIC METAB OLIC PANEL BUN 26 mg/dL 7-18 high Not Available [address], [address], 09/25/2022 15:24:30 09/26/19 23 09/25/2022 BASIC METAB OLIC PANEL creatinine 0.7 mg/dL 0.8-1. 3 low Not Available [address], [address], 09/25/2022 15:24:30 09/26/19 23 09/25/2022 BASIC METAB OLIC PANEL B/C 37.1 ratio Not Available [address], [address], 09/25/2022 15:24:30 09/26/19 23 09/25/2022 BASIC METAB [...] be used in pregn cheryl. Not Available [address], [address], 09/25/2022 15:24:30 09/26/19 23 09/25/2022 BASIC METAB OLIC PANEL sodium 140 mmol/ L 136-14 5 Not Available [address], [address], 09/25/2022 15:24:30 09/26/19 23 09/25/2022 BASIC METAB OLIC PANEL potassium 4.1 mmol/ L 3.5-5. 1 Not Available [address], [address], 09/25/2022 15:24:30 09/26/19 23 09/25/2022 BASIC METAB OLIC PANEL chloride 102 mmol/ L 96-107 Not Available [address], [address], 09/25/2022 15:24:30 09/26/19 23 09/25/2022 BASIC METAB OLIC PANEL anion gap 11.1 5.0-15 .0 Not Available [address], [address], 09/25/2022 15:24:30 09/26/19 23 09/25/2022 BASIC METAB OLIC PANEL CO2 27 mmol/ L 21-32 Not Available [address], [address], 09/25/2022 15:24:30 09/26/19 23 09/25/2022 BASIC METAB OLIC PANEL calcium 9.5 mg/dL 8.5-10 .3 Not Available [address], [address], 09/25/2022 15:24:30 09/26/19 23 09/25/2022 LIPID PANEL cholesterol 186 mg/dL <200 mg/dl Lucie able 200-2 39 mg/dl Borde rline High >240 mg/dl High Not Available [address], [address], 09/25/2022 15:24:31 09/26/19 23 09/25/2022 LIPID PANEL triglyceride s 177 mg/dL <150 mg/dL Ava l 150-1 99 mg/dL Borde rline High 200-4 99 mg/dL High >500 mg/dL Very High Not Available [address], [address], 09/25/2022 15:24:31 09/26/19 23 09/25/2022 LIPID PANEL direct HDL 50 mg/dL <40 mg/dl - Major Risk for CHD >60 mg/dl - Negat donna Risk for CHD Not Available [address], [address], 09/25/2022 15:24:31 09/26/19 23 09/25/2022 LDL - [...] r is not neces leny. Not Available [address], [address], 09/25/2022 15:24:32 04/26/19 24 04/26/2023 HGB A1C [...] furth er confi rmati on Not Available [address], [address], 04/26/2023 12:28:00 04/26/19 24 04/26/2023 HGB A1C estimated average glucose 131.2 mg/dL Not Available [address], [address], 04/26/2023 12:28:00 04/26/19 24 04/26/2023 BASIC METAB OLIC PANEL glucose 108 mg/dL 70-100 high Not Available [address], [address], 04/26/2023 14:13:00 04/26/19 24 04/26/2023 BASIC METAB OLIC PANEL BUN 21 mg/dL 7-18 high Not Available [address], [address], 04/26/2023 14:13:00 04/26/19 24 04/26/2023 BASIC METAB OLIC PANEL creatinine 0.8 mg/dL 0.8-1. 3 Not Available [address], [address], 04/26/2023 14:13:00 04/26/19 24 04/26/2023 BASIC METAB OLIC PANEL B/C 26.3 ratio Not Available [address], [address], 04/26/2023 14:13:00 04/26/19 24 04/26/2023 BASIC METAB [...] be used in pregn cheryl. Not Available [address], [address], 04/26/2023 14:13:00 04/26/19 24 04/26/2023 BASIC METAB OLIC PANEL sodium 142 mmol/ L 136-14 5 Not Available [address], [address], 04/26/2023 14:13:00 04/26/19 24 04/26/2023 BASIC METAB OLIC PANEL potassium 4.2 mmol/ L 3.5-5. 1 Not Available [address], [address], 04/26/2023 14:13:00 04/26/19 24 04/26/2023 BASIC METAB OLIC PANEL chloride 101 mmol/ L 96-107 Not Available [address], [address], 04/26/2023 14:13:00 04/26/19 24 04/26/2023 BASIC METAB OLIC PANEL anion gap 11.4 5.0-15 .0 Not Available [address], [address], 04/26/2023 14:13:00 04/26/19 24 04/26/2023 BASIC METAB OLIC PANEL CO2 30 mmol/ L 21-32 Not Available [address], [address], 04/26/2023 14:13:00 04/26/19 24 04/26/2023 BASIC METAB OLIC PANEL calcium 9.9 mg/dL 8.5-10 .3 Not Available [address], [address], 04/26/2023 14:13:00 04/26/19 24 04/26/2023 LIPID PANEL cholesterol 196 mg/dL <200 mg/dl Lucie able 200-2 39 mg/dl Borde rline High >240 mg/dl High Not Available [address], [address], 04/26/2023 14:13:01 04/26/19 24 04/26/2023 LIPID PANEL triglyceride s 212 mg/dL <150 mg/dL Ava l 150-1 99 mg/dL Borde rline High 200-4 99 mg/dL High >500 mg/dL Very High Not Available [address], [address], 04/26/2023 14:13:01 04/26/19 24 04/26/2023 LIPID PANEL direct HDL 55 mg/dL <40 mg/dl - Major Risk for CHD >60 mg/dl - Negat donna Risk for CHD Not Available [address], [address], 04/26/2023 14:13:01 04/26/19 24 04/26/2023 LDL - [...] r is not monica michele. Not Available [address], [address], 04/26/2023 14:13:02 10/02/19 24 10/02/2023 HGB A1C [...] furth er confi rmati on Not Available [address], [address], 10/02/2023 14:29:47 10/02/19 24 10/02/2023 HGB A1C estimated average glucose 128.4 mg/dL Not Available [address], [address], 10/02/2023 14:29:47 10/02/19 24 10/04/2023 BASIC METAB OLIC PANEL glucose 94 mg/dL 70-100 Not Available [address], [address], 10/04/2023 12:15:00 10/02/19 24 10/04/2023 BASIC METAB OLIC PANEL BUN 19 mg/dL 7-18 high Not Available [address], [address], 10/04/2023 12:15:00 10/02/19 24 10/04/2023 BASIC METAB OLIC PANEL creatinine 0.8 mg/dL 0.8-1. 3 Not Available [address], [address], 10/04/2023 12:15:00 10/02/19 24 10/04/2023 BASIC METAB OLIC PANEL B/C 23.8 ratio Not Available [address], [address], 10/04/2023 12:15:00 10/02/19 24 10/04/2023 BASIC METAB [...] be used in pregn cheryl. Not Available [address], [address], 10/04/2023 12:15:00 10/02/19 24 10/04/2023 BASIC METAB OLIC PANEL sodium 141 mmol/ L 136-14 5 Not Available [address], [address], 10/04/2023 12:15:00 10/02/19 24 10/04/2023 BASIC METAB OLIC PANEL potassium 4.1 mmol/ L 3.5-5. 1 Not Available [address], [address], 10/04/2023 12:15:00 10/02/19 24 10/04/2023 BASIC METAB OLIC PANEL chloride 103 mmol/ L 96-107 Not Available [address], [address], 10/04/2023 12:15:00 10/02/19 24 10/04/2023 BASIC METAB OLIC PANEL anion gap 10.0 5.0-15 .0 Not Available [address], [address], 10/04/2023 12:15:00 10/02/19 24 10/04/2023 BASIC METAB OLIC PANEL CO2 28 mmol/ L 21-32 Not Available [address], [address], 10/04/2023 12:15:00 10/02/19 24 10/04/2023 BASIC METAB OLIC PANEL calcium 9.3 mg/dL 8.5-10 .3 Not Available [address], [address], 10/04/2023 12:15:00 04/18/19 25 04/18/2024 HGB A1C [...] furth er confi rmati on Not Available [address], [address], 04/18/2024 12:20:20 04/18/19 25 04/18/2024 HGB A1C estimated average glucose 137.0 mg/dL Not Available [address], [address], 04/18/2024 12:20:20 04/18/19 25 04/18/2024 BASIC METAB OLIC PANEL glucose 99 mg/dL 70-100 Not Available [address], [address], 04/18/2024 13:54:33 04/18/19 25 04/18/2024 BASIC METAB OLIC PANEL BUN 18 mg/dL 7-18 Not Available [address], [address], 04/18/2024 13:54:33 04/18/19 25 04/18/2024 BASIC METAB OLIC PANEL creatinine 0.8 mg/dL 0.8-1. 3 Not Available [address], [address], 04/18/2024 13:54:33 04/18/19 25 04/18/2024 BASIC METAB OLIC PANEL B/C 22.5 ratio Not Available [address], [address], 04/18/2024 13:54:33 04/18/19 25 04/18/2024 BASIC METAB [...] be used in pregn cheryl. Not Available [address], [address], 04/18/2024 13:54:33 04/18/19 25 04/18/2024 BASIC METAB OLIC PANEL sodium 142 mmol/ L 136-14 5 Not Available [address], [address], 04/18/2024 13:54:33 04/18/19 25 04/18/2024 BASIC METAB OLIC PANEL potassium 4.4 mmol/ L 3.5-5. 1 Not Available [address], [address], 04/18/2024 13:54:33 04/18/19 25 04/18/2024 BASIC METAB OLIC PANEL chloride 101 mmol/ L 96-107 Not Available [address], [address], 04/18/2024 13:54:33 04/18/19 25 04/18/2024 BASIC METAB OLIC PANEL anion gap 11.4 5.0-15 .0 Not Available [address], [address], 04/18/2024 13:54:33 04/18/19 25 04/18/2024 BASIC METAB OLIC PANEL CO2 30 mmol/ L 21-32 Not Available [address], [address], 04/18/2024 13:54:33 04/18/19 25 04/18/2024 BASIC METAB OLIC PANEL calcium 10.0 mg/dL 8.5-10 .3 Not Available [address], [address], 04/18/2024 13:54:33 04/18/19 25 04/18/2024 LIPID PANEL cholesterol 176 mg/dL <200 mg/dl Lucie able 200-2 39 mg/dl Borde rline High >240 mg/dl High Not Available [address], [address], 04/18/2024 13:54:34 04/18/19 25 04/18/2024 LIPID PANEL triglyceride s 225 mg/dL <150 mg/dL Ava l 150-1 99 mg/dL Borde rline High 200-4 99 mg/dL High >500 mg/dL Very High Not Available [address], [address], 04/18/2024 13:54:34 04/18/19 25 04/18/2024 LIPID PANEL direct HDL 52 mg/dL <40 mg/dl - Major Risk for CHD >60 mg/dl - Negat donna Risk for CHD Not Available [address], [address], 04/18/2024 13:54:34 04/18/19 25 04/18/2024 LDL - [...] r is not neces leny. Not Available [address], [address], 04/18/2024 13:54:35 01/18/20 23 01/16/2023 MAMMO , [...] Family history of malignant neoplasm of ovary 514414897 Completed 08/04/2016 Meredith Uribe NP [address] [place], [address], [facility] 7 12:41:04 Family history of breast cancer 498798537 Active Meredith Uribe NP [facility]ly [facility] [place], [address], [facility] 6 13:12:12 Family history of cancer of colon 621051815 Active 2016 Meredith Uribe NP [address] [place] [address] [place], [address], [facility] 7 12:41:19 Gastroesoph ageal reflux disease 865140802 Active 2019 Jackeline broderick MD [address] [place] [address] [place], [address], [facility] 0 09:46:53 Vesicular hand eczema 766801122 Active 2020 Jackeline broderick MD [address] [place] [address] [place], [address], [facility] 1 09:59:43 Mixed hyperlipide emile 511501794 Active 2003 Meredith Uribe NP [address] [place] [address] [place], [address], [facility] 6 13:12:12 Psychogenic headache 47485913 Completed 200102/01/2009 Meredith Uribe NP [address] [place], [place] [address], [address], [facility] 6 13:07:14 Essential hypertensio n 38908243 Completed 200303/25/2012 Meredith Uribe NP [address] [place], [place] [address], [address], [facility] 6 13:07:14 Lateral epicondylit is 013269310 Completed 03/25/2012 Meredith Uribe NP [facility] [place], [address], [facility] 6 13:07:15 Palpitation s 92770649 Completed 200403/25/2012 Meredith Uribe NP [address] [place], [address], [facility] 6 13:07:15 Multiple joint pain 74619184 Completed 03/25/2012 Meredith Uribe NP [address] [place], [address], [facility] 6 13:07:14 Benign essential hypertensio n 4426740 Active 2003 Meredith Uribe NP [address] [place], [address], [facility] 6 13:12:12 Neck pain 48380430 Completed 200703/25/2012 Meredith Uribe NP [address] [place], [address], [facility] 6 13:07:15 Noninflamma tory disorder of the vagina 17580712 Completed 200402/01/2009 Meredith Uribe NP [address] [place], [address], [facility] 6 13:07:15 Dysfunction al uterine bleeding Completed 200403/25/2012 Meredith Uribe NP [address] [place], [address], [facility] 6 13:07:14 Tachycardia 1648333 Completed 200303/25/2012 Meredith Uribe NP [address] [place], [address], [facility] 6 13:07:15 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 32849142 Completed 200702/01/2009 Meredith Uribe NP [address] [place], [address], [facility] 6 13:07:14 Joint pain 98379283 Completed 200403/25/2012 Meredith Uribe NP [address] [place], [address], [facility] 6 13:07:14 Acute maxillary sinusitis 67701443 Completed 200102/01/2009 Meredith Uribe NP [address] [place], [address], [facility] 6 13:07:14 Elevated blood-press ure reading without diagnosis of hypertensio n 565932296 Completed 200102/01/2009 Meredith Uribe NP [address] [place], [address], [facility] 6 13:07:15 Impaired fasting glycemia 569030498 Active Meredith Uribe NP [address] [place], [address], [facility] 6 13:12:12 Hyperlipide emile 95339381 Completed 200303/25/2012 Meredith Uribe NP [address] [place], [address], [facility] 6 13:07:14 Acute bronchitis 37304918 Completed 03/25/2012 Meredith Uribe NP [address] [place], [address], [facility] 6 13:07:14 Malaise and fatigue 513887370 Completed 200403/25/2012 Meredith Uribe NP [address] [place], [address], [facility] 6 13:07:15 Headache 71754223 Completed 199902/01/2009 Meredith Uribe NP [address] [place], [address], [facility] 6 13:07:15 Viral disease 57368777 Completed 200002/01/2009 Meredith Uribe NP [address] [place], [address], [facility] 6 13:07:14 Sleep disorder 58174456 Completed 03/25/2012 Meredith Uribe NP [address] [place], [address], [facility] 6 13:07:15 Mammography abnormal 534062271 Completed 10/27/2014 Meredith Uribe NP [address] [place], [address], [facility] 6 13:07:15 Congenital anomaly of skin 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 Completed 03/25/2012 Meredith Uribe NP [address] [place], [address], [facility] 6 13:07:15 Primary malignant neoplasm of female breast 77775218 Completed 200303/25/2012 Meredith Uribe NP [address] [place], [address], [facility] 6 13:07:14 Menstruatio n finding Completed 200503/25/2012 Meredith Uribe NP [address] [place], [address], [facility] 6 13:07:15 Acute sinusitis 70992427 Completed 03/25/2012 Meredith Uribe NP [address] [place], [address], [facility] 6 13:07:14 Acute sinusitis 84726602 Completed 199902/01/2009 Meredith Uribe NP [address] [place], [address], [facility] 6 13:07:14 Joint pain in ankle and foot Completed 03/25/2012 Meredith Uribe NP [address] [place], [address], [facility] 6 13:07:14 Finding of trunk structure 953073611 Completed 200403/25/2012 Meredith Uribe NP [address] [place], [address], [facility] 6 13:07:15 Breast lump 92031093 Completed 200103/25/2012 Meredith Uribe NP [address], [place], [address], [facility] 6 13:07:14 Gastrointes tinal hemorrhage 29589160 Completed 200403/25/2012 Meredith Uribe NP [address], [place], [address], [facility] 6 13:07:14 Common cold 68895526 Completed 200002/01/2009 Meredith Uribe NP [address], [place], [address], [facility] 6 13:07:14 Mammography abnormal 775623174 Completed 200703/25/2012 Meredith Uribe NP [address] [place], [address], [facility] 6 13:07:15 Menopausal symptom 04133746 Completed 200803/25/2012 Meredith Uribe NP [address] [place], [address], [facility] 6 13:07:14 Solitary cyst of breast 230045950 Completed 200603/25/2012 Meredith Uribe NP [address] [place], [address], [facility] 6 13:07:14 Menopausal and postmenopau markus disorders 513925118 Completed 200702/01/2009 Meredith Uribe NP [address], [place], [address], [facility] 6 13:07:14 Problem Notes None recorded. Procedures Surgical History Date Name Laterality Status Provider Name and Address Organization Details Recorded Time 10/09/19 24 Medicare Wellness Visit completed NOLA Morrison [facility] [place] 10/08/2023 09:36:32 10/09/19 24 Cardiovascular disease risk reduction counseling completed NOLA [facility] [place] 10/08/2023 09:38:03 10/09/19 24 prevention-annual alcohol misuse screening completed NOAL Morrison [facility] [place] 10/08/2023 09:38:04 04/30/19 24 [id number] completed Jackeline Spivey. [address] [place] [address], [address], [facility] 04/29/2023 20:10:38 10/06/19 23 Medicare Wellness Visit completed Tamiko NOLA Far[facility] [place] 10/02/2022 14:12:12 10/06/19 23 Cardiovascular disease risk reduction counseling completed Tamiko NOLA Far[facility] [place] 10/02/2022 14:12:58 10/06/19 23 prevention-annual alcohol misuse screening completed Tamiko NOLA Far[facility] [place] 10/02/2022 14:13:02 08/30/19 22 Medicare Wellness Visit completed Tamiko NOLA Farrell [facility] [place] 08/29/2021 12:05:23 08/30/19 22 Alcohol use screening completed Tamiko NOLA Farrell [facility] [place] 08/29/2021 12:05:23 08/30/19 22 Cardiovascular disease risk reduction counseling completed Taimko NOLA Farrell [facility] [place] 08/29/2021 12:05:23 10/28/19 21 Tassoni - Colonoscopy completed Marshall Back MD [address] [place] [address], [address], [facility] 10/27/2020 08:11:19 10/28/19 21 colonoscopy completed Jackeline Spivey. [address] [place] [address], [address], [facility] 10/31/2020 16:05:15 07/30/19 21 Medicare Wellness Visit completed [facility] 07/29/2020 09:03:31 07/30/19 21 prevention-cardiov ascular risk reduction counseling completed [facility] 07/29/2020 09:03:31 07/30/19 21 prevention-annual alcohol misuse screening completed [facility] 07/29/2020 09:03:31 06/12/19 18 POC Urinalysis Testing completed Gloria Hinojosa LPN [facility] [place] 06/11/2017 09:34:32 08/24/19 16 Tassoni - Colonoscopy completed Marshall Back MD [address] [place] [address], [address], [facility] 08/24/2015 11:21:39 08/24/19 16 Tassoni - EGD completed Marshall Back MD [address] [place] [address], [address], [facility] 08/24/2015 10:48:17 10/01/19 05 completed Not Available [facility] 01/26/2011 06:05:52 left oophorectomy completed Mary Grace Spivey. [address] [place] [address], [address], [facility] 02/16/2020 08:11:22 Imaging Results Imaging Date Name [...] Name and Address Organization Details Recorded Time 00608 Substance with sulfonami de structure and antibacte rial mechanism of action (substanc e) medicatio n Not available Not available Not available 02/01/2009 57512 8003 SNOMED BELLS PALSY FER Hernandez [facility] [place] 16:24:01 51602 lisinopri l medicatio n cough Not available Not available 02/01/2009 20849 RxNorm Not Available [facility] 06:05:41 aspirin medicatio n abdominal pain Not available Not available 12/14/2016 1191 RxNorm [place] Dhillon, [facility] [place] 7 10:29:58 ibuprofen medicatio n Not available Not available Not available 12/14/2016 5640 RxNorm Jackeline broderick MD [address] [place] [address], [place], [address] , [facility] 4 10:51:49 14088 Bactrim medicatio n Not available Not available Not available 08/02/2009 52622 9 RxNorm BELLS PALSY Betty argueta RN null, [facility] [place] 1 16:23:31 42144 penicilli n G Not available hives Not available Not available 08/02/2009 7980 RxNorm Not Available [facility] 1 06:05:41 Medications Name Sig Start Date [...] TABLET BY MOUTH EVERY DAY WITH DINNER. TOTAL DOSE 1,000 MG PER DAY. active Not Available Not Available No t Available Vitamin B6 200 mg tablet,ext ended release [...] Available No t Available Fluzone High-Dose Quad (PF) 240 mcg/0.7 mL IM syringe ADM [...] Updated DateTime 3 163.83 cm 24 kg/m2 53244.1 2 g 75 /min 100 % 100 % 122 mm[Hg] 80 mm[Hg] NOLA [facility] [place] 3 10:31:22 Date Recorded Body height Body mass index (BMI) Body weight Heart rate Oxygen saturation Oxygen saturation in Arterial blood by Pulse oximetry Systolic blood pressure Diastolic blood pressure Provider Name and Address Organization Details Last Updated DateTime 4 163.83 cm 24.7 kg/m2 44974.4 9 g 77 /min 99 % 99 % 140 mm[Hg] 80 mm[Hg] NOLA Morrison [facility] [place] 4 10:42:01 Date Recorded Systolic blood pressure Diastolic blood pressure Provider Name and Address Organization Details Last Updated DateTime 04/30/2023 130 mm[Hg] 80 mm[Hg] Jackeline Spivey. [address] [place] [address], [phone], [facility] [place] 04/30/2023 10:56:20 Date Recorded Body height Body mass index (BMI) Body weight Heart rate Oxygen saturation Oxygen saturation in Arterial blood by Pulse oximetry Systolic blood pressure Diastolic blood pressure Provider Name and Address Organization Details Last Updated DateTime 4 163.83 cm 23.5 kg/m2 55995.3 4 g 63 /min 99 % 99 % 120 mm[Hg] 80 mm[Hg] NOLA Morrison [facility] [place] 4 11:39:03 Date Recorded Body height Body mass index (BMI) Body weight Heart rate Oxygen saturation Oxygen saturation in Arterial blood by Pulse oximetry Systolic blood pressure Diastolic blood pressure Provider Name and Address Organization Details Last Updated DateTime 4 163.83 cm 24.5 kg/m2 42272.8 9 g 75 /min 99 % 99 % 120 mm[Hg] 70 mm[Hg] NOLA Morrison [facility] [place] 4 11:20:24 Date Recorded Body height Body mass index (BMI) Body weight Heart rate Systolic blood pressure Diastolic blood pressure Provider Name and Address Organization Details Last Updated DateTime 5 163.83 cm 24.8 kg/m2 32385.0 8 g 83 /min 122 mm[Hg] 70 mm[Hg] Betty Sheron [facility] 5 10:12:50 Social History Question Answer Notes LastModified by Organizat ion Details LastModified Time Tobacco Smoking Status Never Smoker NOLA Morrison [facility] 08/29/2021 14:22:46 What Is Your Level Of Alcohol Consumption? Occasional A Glass Of Wine With Dinner On Weekends [email or web address] Information not available 10/09/2023 Do You Wear A Helmet When Biking? Yes [email or web address] Information not available 05/07/2015 What Is Your Level Of Caffeine Consumption? Occasional Tea Or Diet Soda Occasionally Information not available 04/28/2014 How Much Tobacco Do You Chew? None [email or web address] Information not available 05/07/2015 Are You Currently Employed? No [facility] Information not available 08/29/2021 What Type Of Diet Are You Following? REGULAR Information not available 04/28/2014 Which Illicit Or Recreational Drugs Have You Used? [facility] Information not available 07/29/2020 Do You Or Have You Ever Used E-cigarettes Or Vape? Never Used Electronic Cigarettes Information not available 08/29/2021 What Is The Highest Grade Or Level Of School You Have Completed Or The Highest Degree You Have Received? 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 No Information not available 08/29/2021 How Many Days In The Past Year Have You Had A Heavy Drinking Consumption (4+ Female, 5+ Male)? 0 [email or web address] Information not available 10/16/2012 Are There Any Guns Present In Your Home? No [email or web address] Information not available 08/29/2021 Do You Use Insect Repellent Routinely? Yes [email or web address] Information not available 08/29/2021 Live Alone Or [...] Seat Belt Or Car Seat Routinely? Yes [email or web address] Information not available 08/29/2021 Seat Belts Used Routinely Yes Information not available 04/28/2014 Smoke Alarm In Home Yes [email or web address] Information not available 05/07/2015 Do You Have Smoke And Carbon Monoxide Detectors In Your Home? Yes [email or web address] Information not available 08/29/2021 Are You Passively Exposed To Smoke? No [email or web address] Information not available 08/29/2021 Do You Or Have You Ever Used Smokeless Tobacco? Never Used Smokeless Tobacco [email or web address] Information not available 08/29/2021 How Much Tobacco Do You Smoke? No [email or web address] Information not available 08/29/2021 General Stress Level Low [email or web address] Information not available 05/07/2015 Do You Use Any Illicit Or Recreational Drugs? No Information not available 01/25/2021 Do You Use Sunscreen Routinely? Yes Information not available 04/28/2014 How Many Years Have You Smoked Tobacco? 0 [email or web address] Information not available 08/29/2021 Sex: Female Functional Status Question Answer Note LastModified by Organizat ion Details LastModified Time What is your exercise level? Occasional walks 3 times a week [email or web address] Information not available 08/29/2021 Mental Status None [...] HTN, father of CAD at 72; brother [place] at 60 Cancer: Family history is remarkable [...] virus, trivalent, preservative 1 completed Not Available [facility] 03/29/2019 02:18:14 DTaP, unspecified formulation 5 completed Not Available [facility] 01/25/2011 05:21:29 influenza, unspecified formulation 8 completed Not Available [facility] 01/25/2011 05:22:13 influenza, unspecified formulation 0 completed Not Available [facility] 01/25/2011 05:22:52 Influenza, split virus, trivalent, PF 3 completed Not Available [facility] 03/29/2019 02:18:58 zoster live 5 completed Not Available [facility] 03/29/2019 02:19:44 Td (adult), 5 Lf tetanus toxoid, preservative free, adsorbed 5 completed Not Available [facility] 03/29/2019 02:19:45 Influenza, split virus, quadrivalent, PF 5 completed Not Available [facility] 03/29/2019 02:19:52 influenza, unspecified formulation 2 completed [place] Zambrano, [facility] [place] 03/25/2012 08:23:22 Influenza, split virus, quadrivalent, PF 6 completed Not Available [facility] 03/29/2019 02:20:42 Influenza, split virus, quadrivalent, PF 7 completed Not Available [facility] 03/29/2019 02:27:42 Influenza, split virus, trivalent, preservative 4 completed Anabella Yoder LPN null, [facility] [place] 04/28/2014 08:36:07 Tdap 5 completed Gabriella Crain LPN null, [facility] [place] 05/19/2014 10:19:24 Influenza, split virus, quadrivalent, PF 8 completed Not Available [facility] 03/29/2019 02:22:58 Influenza, split virus, quadrivalent, PF 9 completed Not Available [facility] 03/29/2019 02:24:07 Pneumococcal conjugate PCV 13 0 completed Susan George CMA null, [facility] [place] 12/15/2019 11:25:40 Influenza, high-dose, quadrivalent, PF 0 completed Susan George CMA null, [facility] [place] 12/15/2019 11:26:51 COVID-19, mRNA, LNP-S, PF, 100 mcg/0.5mL dose or 50 mcg/0.25mL dose 1 completed Sy Wade, BALLASTER null, [facility] [place] 08/02/2020 09:51:06 COVID-19, mRNA, LNP-S, PF, 100 mcg/0.5mL dose or 50 mcg/0.25mL dose 1 completed Sy Wade BALLASTER null, [facility] [place] 08/02/2020 09:52:05 zoster recombinant 1 completed Nilmari RMA Farrell null, [facility] [place] 01/25/2021 08:19:13 COVID-19, mRNA, LNP-S, PF, 100 mcg/0.5mL dose or 50 mcg/0.25mL dose 1 completed Nilmari, R[facility] 01/14/2021 16:33:46 Influenza, split virus, quadrivalent, preservative 1 completed Nilmari, RMA Farrell null, [facility] [place] 01/25/2021 08:17:55 pneumococcal polysaccharide PPV23 1 completed Nilmari, RMA Farrell null, [facility] [place] 01/25/2021 08:18:43 COVID-19, mRNA, LNP-S, PF, 100 mcg/0.5mL dose or 50 mcg/0.25mL dose 2 completed Nilmari, RMA Farrell null, [facility] [place] 08/29/2021 12:08:38 zoster recombinant 1 completed Nilmari, RMA Farrell null, [facility] [place] 09/05/2021 15:24:16 COVID-19, mRNA, LNP-S, bivalent, PF, 50 mcg/0.5 mL or 25mcg/0.25 mL dose 3 completed Dunia Le BALLASTER null, [facility] [place] 08/24/2022 08:17:56 influenza, unspecified formulation 2 completed Jackeline Spivey. [address] [place] [address], [id number], [facility] 10/05/2022 10:46:41 Influenza, split virus, quadrivalent, preservative 3 completed NOLA Morrison, [facility] [place] 11/26/2022 19:09:19 Respiratory syncytial virus (RSV) vaccine, unspecified 3 completed NOLA Morrison, [facility] [place] 01/15/2023 11:04:41 COVID-19, mRNA, LNP-S, bivalent, PF, 50 mcg/0.5 mL or 25mcg/0.25 mL dose 4 completed NOLA Morrison, [facility] [place] 05/15/2023 13:50:04 COVID-19, mRNA, LNP-S, PF, 100 mcg/0.5mL dose or 50 mcg/0.25mL dose 4 completed NOLA Morrison, [facility] [place] 11/27/2023 13:46:39 Influenza, high-dose, trivalent, PF 4 completed NOLA oMrrison, [facility] [place] 12/23/2023 20:11:59 Past Encounters Encounter ID Performer Location Encounter Start Date Encounter Closed Date Diagnosis/Indication Diagnosis SNOMED-CT Code Diagnosis ICD10 Code Diagnosis Note [id number] [facility] [place] [address] [place] [address] 02/22/2000 09:00:00 04/01/2008 02:02:29 [id number] Radiology , [facility] [address] [facility] [place] [address] 1 07/30/2000 13:30:00 04/01/2008 02:02:29 [id number] [facility] [place] [address] [place] [address] 1 07/30/2000 12:15:00 04/01/2008 02:02:29 [id number] [facility] [place] [address] [place] [address] 03/13/2000 11:15:00 04/01/2008 02:02:29 [id number] [facility] [place] [address] [place] [address] 1 05/24/2001 09:15:00 04/01/2008 02:02:29 [id number] Radiology , [facility] [address] [place] [address] 08/02/2001 09:17:12 04/01/2008 02:02:29 [id number] Radiology , [facility] [address] [place] [address] 1 08/02/2001 00:00:00 04/01/2008 02:02:29 [id number] [facility] [place] [address] [place] [address] 1 08/02/2001 08:22:20 04/01/2008 02:02:29 [id number] FP [facility] OFFICE [address] [place] [address] 1 08/15/2001 09:02:03 04/01/2008 02:02:29 [id number] FP [facility] [place] [address] [place] [address] 1 08/23/2001 14:00:47 04/01/2008 02:02:29 [id number] FP [facility] OFF[place] [address] [place] [address] 1 03/26/2003 15:35:29 03/27/2003 09:46:53 [id number] FP [facility] OFF[place] [address] [place] [address] 1 05/21/2003 15:15:27 05/22/2003 07:48:28 [id number] Radiology , [facility] [address] [place] [address] 1 06/02/2003 08:58:25 06/02/2003 11:45:31 [id number] Radiology , [facility] [address] [place] [id number] 06/02/2003 00:00:00 04/01/2008 02:02:29 [id number] LAB - [facility] [address] [place] [address] 1 06/02/2003 07:29:04 06/02/2003 12:14:49 [id number] LAB - [facility] [address] [place] [address] 1 09/16/2003 07:26:20 09/16/2003 08:28:33 [id number] [facility] [place] [address] [place] [address] 1 10/14/2003 16:25:54 10/15/2003 08:23:03 [id number] LAB - [facility] [address] [place] [address] 01/20/2004 07:28:04 01/20/2004 08:08:41 [id number] Radiology , [facility] [address] [place] [address] 1 06/23/2004 09:21:27 06/24/2004 08:10:35 [id number] Radiology , [facility] [address] [place] [address] 1 06/23/2004 00:00:00 04/01/2008 02:02:29 [id number] [facility] OFFICE [address] [place] [address] 1 07/01/2004 16:26:40 07/04/2004 09:06:26 [id number] [facility] OFFICE [address] [place] [address] 1 07/05/2004 11:25:55 07/05/2004 17:39:27 [id number] [facility] OFFICE [address] [place] [address] 1 07/06/2004 11:17:37 07/07/2004 08:54:16 [id number] [facility] [place]ICE [address] [place] [address] 1 07/12/2004 00:00:00 04/01/2008 02:02:29 [id number] LAB - [facility] [address] [place] [address] 1 07/12/2004 07:31:14 07/12/2004 08:15:38 [id number] [facility] [place] [address] [place] [address] 1 07/19/2004 09:55:42 07/19/2004 13:43:54 [id number] ASP, [facility] [address] [place] [address] 09/30/2004 07:57:59 09/30/2004 17:54:01 [id number] [facility] OFFICE [address] [place] [address] 1 10/14/2004 16:19:01 10/14/2004 17:25:32 [id number] [facility] - [facility] [address] [place] [address] 1 01/13/2005 07:38:03 01/13/2005 08:32:44 [id number] [facility] [place] [address] [place] [id number] 01/12/2005 15:12:47 01/16/2005 15:37:17 [id number] Radiology , [facility] [address] [place] [address] 1 01/16/2005 14:05:52 01/16/2005 14:30:13 [id number] Radiology , [facility] [place] [address] 1 01/16/2005 00:00:00 04/01/2008 02:02:29 [id number] [facility] OFFICE [address] [place] [address] 1 01/26/2005 11:42:51 01/27/2005 08:57:30 [id number] LAB - [address] [place] [address] 1 01/26/2005 12:40:52 01/26/2005 12:41:14 [id number] [facility] OFFICE [address] [place] [address] 1 07/03/2005 09:13:19 07/04/2005 09:09:07 [id number] Radiology , [address] [place] [address] 1 07/03/2005 08:52:34 07/04/2005 08:31:14 [id number] Radiology , [address] [place] [address] 1 07/03/2005 00:00:00 04/01/2008 02:02:29 [id number] LAB - [facility] [place] [address] 1 07/12/2005 07:34:12 07/12/2005 08:24:19 [id number] Radiology , [address] [place] [address] 1 07/20/2005 15:30:44 07/20/2005 15:36:14 [id number] Radiology , [address] [place] [address] 1 07/20/2005 00:00:00 04/01/2008 02:02:29 [id number] [facility] OFFICE [address] [place] [address] 1 08/15/2005 08:27:36 08/15/2005 14:16:22 [id number] Radiology , [address] [place] [address] 1 10/16/2005 13:55:03 10/16/2005 14:35:40 [id number] Radiology , [address] [place] [address] 1 10/16/2005 00:00:00 04/01/2008 02:02:29 [id number] , [facility] OFFICE [address] [place] [address] 1 10/16/2005 13:19:22 10/16/2005 14:46:38 [id number] , [facility] OFFICE [address] [place] [address] 1 01/04/2006 15:14:37 01/09/2006 08:20:32 [id number] LAB - [facility] [place] [address] 1 01/24/2006 08:14:30 01/24/2006 08:42:49 [id number] Radiology , [facility] Dede Garcia [id number] 1 04/18/2006 08:49:08 04/19/2006 08:27:28 [id number] Radiology , [facility] [place] [address] 1 04/18/2006 00:00:00 04/01/2008 02:02:29 [id number] LAB - [address] [place] [address] 1 07/17/2006 08:31:51 07/17/2006 08:31:54 [id number] Radiology , [facility] [place] [address] 1 08/09/2006 08:50:55 08/09/2006 12:10:35 [id number] Radiology , [facility] [place] [address] 1 08/09/2006 00:00:00 04/01/2008 02:02:29 [id number] , [facility] OFFICE [address] [place] [address] 1 08/09/2006 08:00:33 08/10/2006 07:33:25 [id number] Radiology , [facility] [place] [address] 1 11/09/2006 15:29:39 11/09/2006 15:57:30 [id number] Radiology , [facility] [place] [address] 1 08/12/2007 10:44:10 08/12/2007 14:00:12 [id number] LAB - [facility] [place] [address] 1 08/12/2007 08:41:51 08/12/2007 08:41:59 [id number] [facility] OFFICE [address] [place] [address] 1 08/15/2007 10:56:20 08/19/2007 09:13:16 [id number] Radiology , [facility] Dede Garcia [place] 1 08/15/2007 10:34:40 08/15/2007 13:21:52 [id number] Radiology , [facility] [address] [place] [id number] 08/15/2007 12:20:18 08/15/2007 13:19:10 [id number] Physical Therapy, [facility] [place] [address] 1 09/04/2007 08:49:17 09/04/2007 08:49:37 [id number] Physical Therapy, [facility] Dede Garcia [place] 1 09/10/2007 13:28:10 09/10/2007 13:28:56 [id number] Physical Therapy, [address] [place] [address] 1 09/12/2007 10:46:09 09/12/2007 10:46:53 [id number] Radiology , [facility] [place] [address] 1 11/15/2007 08:18:24 11/15/2007 11:24:46 [id number] Radiology , [facility] Dede Garcia [place] 1 11/15/2007 00:00:00 04/01/2008 02:02:29 [id number] [facility] OFF[place] [address] [place] [address] 1 01/27/2008 13:39:41 04/01/2008 02:02:29 [id number] LAB - [facility] [address] [place] [address] 1 02/11/2008 07:52:04 02/11/2008 07:52:08 [id number] Radiology , [facility] Dede Garcia [place] 1 02/19/2008 14:54:39 02/19/2008 15:26:44 [id number] Radiology , [facility] [place] [address] 1 03/19/2008 08:19:18 03/19/2008 13:32:07 [id number] [facility] OFFICE [address] [place] [address] 1 05/26/2008 11:06:11 05/27/2008 09:00:24 [id number] , [facility] OFFICE [address] [place] [address] 1 07/29/2008 08:30:14 07/30/2008 08:08:39 [id number] Radiology , [facility] [address] [place] [address] 1 09/01/2008 08:19:41 09/03/2008 10:34:49 [id number] , [facility] OFFICE [address] [place] [address] 1 09/25/2008 11:52:26 09/29/2008 16:21:47 [id number] [facility] OFFICE [address] [place] [address] 1 10/15/2008 08:28:42 10/21/2008 08:29:02 [id number] Radiology , [facility] [address] [place] [id number] 1 10/15/2008 08:50:26 10/23/2008 10:03:59 [id number] [facility] - [facility] [address] [place] [address] 1 09/10/2008 08:35:43 09/10/2008 08:35:46 [id number] [facility] OFFICE [address] [place] [address] 1 02/01/2009 09:05:06 02/01/2009 14:31:40 [id number] , [facility] OFFICE [address] [place] [address] 1 05/11/2009 14:52:22 05/11/2009 16:49:31 [id number] , [facility] OFFICE [address] [place] [address] 1 08/02/2009 08:37:11 08/02/2009 10:53:44 [id number] Radiology , [facility] [address] [place] [address] 1 09/14/2009 08:40:43 09/15/2009 10:43:40 [id number] Radiology , [facility] [address] [place] [address] 1 09/23/2009 13:47:04 09/24/2009 11:00:24 [id number] [facility] OFFICE [address] [place] [address] 1 02/23/2010 08:46:52 02/23/2010 11:47:25 [id number] Radiology , [facility] [address] [place] [id number] 1 03/22/2010 08:14:23 03/24/2010 10:36:38 [id number] , [facility], OFFICE [address] [place] [address] [place] [address] 1 03/22/2010 08:15:38 03/22/2010 11:51:50 [id number] , [address] [place] [address] 09/20/2010 08:09:37 09/20/2010 17:24:29 [id number] , [address] [place] [address] 01/17/2011 15:43:36 01/17/2011 15:49:26 [id number] , [facility], [address] [place] [address] 03/20/2011 08:02:32 03/21/2011 15:13:[id number] [place] [address] 1 09/22/2011 10:26:54 09/22/2011 11:31:50 [id number] ANTON Nayak, [address] [place] [address] 1 11/24/2011 14:39:12 11/24/2011 15:27:56 [id number] Kumar Francis [address] [place] [address] 1 11/24/2011 15:32:53 11/29/2011 08:03:24 [id number] ANTON Nayak, [address] [place] [address] 03/25/2012 08:11:32 03/25/2012 09:01:48 [id number] [place] [facility], [address] [place] [address] 1 10/16/2012 09:04:01 10/16/2012 09:34:33 [id number] [place], [facility], [address] [place] [address] 1 12/17/2012 07:56:22 12/17/2012 08:31:43 Influenza vaccine needed [id number] 106 Right lowe r quadrant pain [id number] [place], [facility], [address] [place] [address] 1 04/04/2013 08:18:10 04/04/2013 09:13:14 Adult health examination [id number] see Risk Assessment and Lifestyle Change Counseling section above Benign ess ential hypertension 8922408 Blood pressure at goal Mixed hyperlipidemia 823940288 Cholestero l is at goal Continue to work on diet and exercise as discussed [id number] Meredith Uribe NP , [facility], OFFICE [address] [place] [address] [place] [address] 1 10/07/2013 08:14:04 10/07/2013 08:59:15 Benign essential hypertension 4981432 Blood pressure at goal Mixed hyperlipidemia 245925955 Cholestero l is at goal Continue to work on diet and exercise as discussed Right lowe r quadrant pain 460436389 [id number] [facility], OFFICE [address] [place] [address] [place] [address] 1 04/28/2014 08:11:11 04/28/2014 09:07:56 Benign essential hypertension 3810338 Blood pressure at goal Mixed hyperlipidemia 823550125 Cholestero l is at goal Continue to work on diet and exercise as discussed Adult heal th examination [id number] see Risk Assessment and Lifestyle Change Counseling section above Screening for malignant neoplasm of cervix 705430804 Right lowe r quadrant pain [id number] Meredith Uribe NP , [facility], OFFICE [address] [place] [address] [place] [address] 1 10/27/2014 08:13:51 10/27/2014 09:12:15 Lifestyle [id number] Mixed hyperlipidemia 609053267 Cholestero l is at goal Continue to work on diet and exercise as discussed Benign ess ential hypertension 7574565 Blood pressure at goal Impaired f asting glycemia 948742577 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 4714808 Varicella vaccination 77431854 Administra tion of diphtheria and tetanus vaccine 18071603 [id number] Chelly López RN , [facility], OFFICE [address] [place] [address] 1 01/01/2015 10:04:39 01/01/2015 10:08:41 Active or passive immunization 113500431 Z23 [id number] Meredith Uribe NP , [facility], OFFICE [address] [place] [address] [place] [address] 1 05/07/2015 10:13:11 05/07/2015 11:10:40 Mixed hyperlipidemia 811131149 E78.2 Cholestero l is at goal Continue to work on diet and exercise as discussed Benign ess ential hypertension 4871599 I10 Blood pressure at goal Impaired f asting glycemia 511964641 R73.01 Adult [facility] th examination 541576555 Z00.00 see Risk Assessment and Lifestyle Change Counseling section above Screening for malignant neoplasm of colon 480803967 Z12.11 Referral for a DIRECT booked colonoscop y. This patient is a healthy ASA Class 1 or 2 patient (only mild systemic disease), or a STABLE, well controlled insulin dependent diabetic. They do not have serious cardiac disease ie NV/angiopl asty within 1 year, symptomati c CHF; renal failure with CKD 4 or 5; take Coumadin, Plavix, Aggrenox, etc; nor take chronic narcotics. [Patients who take chronic narcotics should be referred to [facility] for a propofol procedure due to possible inability to sedate adequately with conscious sedation.] Family his tory of malignant neoplasm of ovary 503395382 Z80.41 Family his tory of breast cancer 162226469 Z80.3 [id number] Marshall Back MD [facility], [facility] [address] [facility] [place] [address] 1 08/24/2015 08:32:24 08/24/2015 13:32:47 [id number] Meredith Uribe NP , [facility], OFFICE [address] [place] [address] 12/03/2015 08:08:39 12/03/2015 08:40:40 Benign essential hypertension 5704488 I10 Blood pressure at goal Mixed hyperlipidemia 267 236263 E78.2 Cholestero l is slightly above goal at 136. Maribell wanted to work on diet and exercise and revisit the need to increase Lovastatin dose at her next visit. Active or passive immunization 644188623 Z23 Impaired f asting glycemia 864016763 R73.01 Continue to work on diet and exercise. Hip pain 18603432 M25.55 9 Discussed. No interventi on at this time. [id number] Meredith Uribe NP , [facility] [place] [address] [place] [address] 08/04/2016 10:10:49 08/04/2016 10:56:02 Adult health examination 813696290 Z00.00 see Risk Assessment and Lifestyle Change Counseling section above Benign ess ential hypertension 0515244 I10 Mixed hyperlipidemia 267 420243 E78.2 Impaired f asting glycemia 742183416 R73.01 Continue to work on diet and exercise. Family his tory of breast cancer 791226466 Z80.3 Followed with mammograms at [facility]. Family his tory of cancer of colon 355330659 Z80.0 Colonoscop y 2015, f/u 5 years. 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 of meniscal injury, colateral ligamentre ferred to Injury Clinic at [facility] Ortho [id number] Meredith Uribe NP , [facility] OFFICE [address] [place] [address] 02/06/2017 09:01:57 02/06/2017 09:43:42 Benign essential hypertension 3735405 I10 Blood pressure at goal Mixed hyperlipidemia 267 239509 E78.2 Cholestero l is at goal Continue to work on diet and exercise as discussed Impaired f asting glycemia 828864792 R73.01 Continue to work on diet and exercise. Tear of me niscus of knee 289698557 S83.206D [id number] Meredith Uribe NP , [facility] OFFICE [address] [place] [address] 06/11/2017 09:16:57 06/11/2017 09:56:55 Right lower quadrant pain 668245159 R10.31 [id number] ANTON Nayak, [facility] OFFICE [address] [place] [address] 08/17/2017 08:15:46 08/17/2017 10:08:36 Adult health examination 566563626 Z00.00 see Risk Assessment and Lifestyle Change Counseling section above Depression screening 171 Z13.89 depression screening tool administer ed, entered into emr, scored and discussed, time greater than 7.5 minutes Mixed hyperlipidemia 267 554943 E78.2 Cholestero l is at goal Continue to work on diet and exercise as discussed Benign ess ential hypertension 6933391 I10 Blood pressure at goal Family his tory of breast cancer 563845486 Z80.3 Followed with mammograms at [facility]. Family his tory of cancer of colon 175003332 Z80.0 Colonoscop y 2015, f/u 5 years. Pain in right knee 71405 48542 79014 M25.561 Screening for malignant neoplasm of cervix 128625677 Z12.4 [id number] DELMER London, [facility]ICE [address] [place] [address] 11/30/2017 13:26:28 11/30/2017 13:44:44 Active or passive immunization 420301989 Z23 [id number] ANTON Nayak, [facility] [place]ICE [address] [place] [address] 02/15/2018 08:53:47 02/15/2018 09:29:10 Mixed hyperlipidemia 327264499 E78.2 Cholestero l is at goal Continue to work on diet and exercise as discussed Benign ess ential hypertension 8312656 I10 Blood pressure at goal Blood pressure NOT at goal. [id number] Meredith Uribe NP , [facility] OFFICE [address] [place] [address] 11/29/2018 09:24:46 11/29/2018 10:35:49 Adult health examination 554415808 Z00.00 see Risk Assessment and Lifestyle Change Counseling section above Depression screening 171 Z13.89 depression screening tool administer ed, entered into emr, scored and discussed, time greater than 7.5 minutes Mixed hyperlipidemia 267 704811 E78.2 Cholestero l is at goal Continue to work on diet and exercise as discussed Benign ess ential hypertension 1687389 I10 Blood pressure at goal Blood pressure NOT at goal. Family his tory of cancer of colon 521275116 Z80.0 Colonoscop y 2015, f/u 5 years. Impaired f asting glycemia 536662647 R73.01 Continue to work on diet and exercise. Family his tory of breast cancer 911521116 Z80.3 Followed with mammograms at [facility]. Active or passive immunization 462269555 Z23 Right lowe r quadrant pain 550789149 R10.31 [id number] Jackeline Mendez MD , [facility] [place]ICE [address] [place] [address] 06/16/2019 07:58:15 06/17/2019 15:26:21 Essential hypertension 51854526 I10 Blood pressure at home has been below 140/90. Continue same. Ordered labs before next visit. Mixed hyperlipidemia 267 059002 E78.2 On statin therapy, LDL below 130. Continue same. Fasting labs with blood sugar before next visit. Impaired f asting glycemia 820944270 R73.01 Her older brother had diabetes, not sure about family history in older generation . Diet reviewed. Check fasting sugar and hemoglobin A1c before next visit. Gastroesop hageal reflux disease 810890229 K21.9 Symptoms controlled with omeprazole . Continue same. Due for another endoscopy later this year. [id number] Jackeline Mendez MD , [facility] OFFICE [address] [place] [address] 12/01/2019 09:44:46 12/03/2019 15:40:20 Vesicular hand eczema 884228861 L30.8 Dyshidroti c eczema. Patient to minimize exposure to water, use a regular moisturize r frequently , wear gloves when cleaning and washing dishes. Will provide moderate potency topical steroid and dermatolog y consult.di shidrotic eczema Benign ess ential hypertension 1171855 I10 at target below 140/90. continue same. Mixed hyperlipidemia 267 554183 E78.2 On statin therapy, LDL below 130. Continue same. Fasting labs with blood sugar before next visit. Impaired f asting glycemia 598633735 R73.01 Her older brother had diabetes, not sure about family history in older generation . Diet reviewed. Check fasting sugar and hemoglobin A1c before next visit. Gastroesop hageal reflux disease 540059962 K21.9 Symptoms controlled with omeprazole . Continue same. Due for another endoscopy later this year. [id number] Destin Ludwig MD , [facility] OFFICE [address] [place] [address] 01/21/2020 08:50:43 01/21/2020 14:50:52 Blood in urine 96086816 R31.9 Call office if you develop new or concerning symptoms.P atjenn has negative PAP in 2018Patien t had US in 2019, repeat in 3-6 months Urinary tr act infectious disease 14479435 N39.0 Finish all antibiotic s as prescribed below, drink plenty of fluids and f/u if you develop new or concerning symptoms or symptoms not improving over the next 2-3 days. . Large ovary 66165584 N83 .8 Repeat US of ovary. [id number] Jackeline Spivey . , [facility] OFFICE [address] [place] [address] 07/29/2020 08:54:41 07/29/2020 10:02:48 Adult health examination 107915938 Z00.00 USPSTF guidelines reviewed and discussed with patient. Colonoscop y and mammograph y up to date. Vaccinatio ns up to date except for recombinan t shingles vaccine. Health care proxy in place. Counseling 404522265 Z71 .9 including cardiovasc ular risk reduction counseling . No aspirin indicated. Will change statin to a more potent one, see below. Depression screening 171 519209 Z13.31 depression screening tool administer ed, entered into emr, scored and discussed, time greater than 7.5 minutes. Negative screening. Screening for alcohol abuse 086624489 Z13.39 negative screening. Essential hypertension 29779305 I10 BP at target below 130/80. continue same. Mixed hyperlipidemia 267 710480 E78.2 Cholestero l is not at goal, switch to atorvastat in to lower LDL and cardiovasc ular risk further.. Continue to work on diet and exercise as discussed Vesicular hand eczema 40 5481338 L30.8 Dyshidroti c eczema. Patient to minimize exposure to water, use a regular moisturize r frequently , wear gloves when cleaning and washing dishes. Will provide moderate potency topical steroid. [id number] Sarah Medeiros RN [facility], [facility] [address] [place] [address] 10/27/2020 06:59:55 10/27/2020 12:32:39 [id number] Jackeline Spivey . , [facility] [place] [place] [address] 01/25/2021 10:01:55 01/25/2021 11:08:54 Essential hypertension 05335543 I10 BP at target below 130/80. continue same. Mixed hyperlipidemia 267 472126 E78.2 Cholestero julian is at goalContin ue to work on diet and exercise as discussed Gastroesop hageal reflux disease 653469547 K21.9 Symptoms controlled with omeprazole . Continue same. will have another endoscopy by Dr Back next year. Impaired f asting glycemia 702239021 R73.01 worsening, HgA1c 6.3, prediabete s.discusse d metformin, agreed to start metformin to decrease insulin resistance and preserve pancreatic islet function and delay diagnosis of DM.continu e to minimize alcohol and sweets and cut back on carbs. [id number] Jackeline Spivey . MD BUTT, [facility] OFFICE [address] [place] [address] 05/02/2021 10:33:44 05/02/2021 11:03:43 Essential hypertension 38281368 I10 BP at target below 130/80. continue same. Impaired f asting glycemia 324318517 R73.01 improving, HgA1c 6.1, prediabete s.continue to minimize alcohol and sweets and cut back on carbs.stay active. Mixed hyperlipidemia 267 173324 E78.2 Cholestero julian is at goalContin ue to work on diet and exercise . Gastroesop hageal reflux disease 446538426 K21.9 Symptoms controlled with omeprazole . Dr Back told her to take it less than daily. Family his tory of cancer of colon 127390329 Z80.0 colonoscop y UTD. Vesicular hand eczema 40 9950948 L30.8 Dyshidroti c eczema. does well when using gloves for housework, uses topical steroids prn. Family his tory of breast cancer 866584714 Z80.3 mammo UTD. [id number] aJckeline Spivey . MD BUTT, [facility] OFFICE [address] [place] [address] 08/29/2021 13:53:26 08/29/2021 14:59:11 Adult health examination 804909452 Z00.00 USPSTF guidelines reviewed and discussed with patient. Colonoscop y 10-27-, redo 5 Y, and mammograph y 10-27-21up to date. Vaccinatio ns up to date except we need date of one more recombinan t shingles vaccine. Health care proxy in place. Counseling 783079234 Z71 .9 including cardiovasc ular risk reduction counseling , no asa, is on statin. Depression screening 171 913122 Z13.31 depression screening tool administer ed, entered into emr, scored and discussed, time greater than 7.5 minutes, negative screen. Screening for alcohol abuse 361326278 Z13.39 negative screening. Mixed hyperlipidemia 267 678342 E78.2 Madison jordan is at goalContin ue to work on diet and exercise . Essential hypertension 86487626 I10 BP at target below 130/80. continue same. Gastroesop hageal reflux disease 533917442 K21.9 Symptoms controlled with omeprazole . takes it every 3rd day. Family his tory of cancer of colon 820067293 Z80.0 colonoscop y UTD. every 5 Y. Impaired f asting glycemia 237007292 R73.01 improving, HgA1c 6.0, prediabete s.continue to minimize alcohol and sweets and cut back on carbs.stay active. Vesicular hand eczema 40 1189168 L30.8 Dyshidroti c eczema. does well when using gloves for housework, uses topical steroids prn. Family his tory of breast cancer 921211495 Z80.3 mammo UTD. [id number] Aishwarya Chen er, [employer] , [facility] OFFICE [address] [place] [address] 03/08/2022 12:08:50 03/08/2022 12:51:54 Essential hypertension 24717946 I10 Controlled , continue hctz 25 daily and losartan 25 mg daily Mixed hyperlipidemia 267 811274 E78.2 Madison jordan is at goalContin ue to work on diet and exercise as discussedc ontinue atorvastat in 20 daily Pain of le ft hip joint 6995544446 65953 M25.552 Persistent pain in L hip, worsening w exertionin jection in L hip in past helpful, is wearing off- referral to Ortho for re-evaluat ion and possible corticoste roid injection [id number] Jackeline Spivey . MD BUTT, [facility] OFFICE [address] [place] [address] 10/05/2022 09:53:47 10/05/2022 14:17:52 Adult health examination 805806530 Z00.00 USPSTF guidelines reviewed and discussed with patient. Colonoscop y 10-27-20, redo 5 Y, and mammograph y fall 2001.up to date. Vaccinatio ns up to date. Health care proxy in place.CV counseling done. Depression screening 171 938543 Z13.31 depression screening tool administer ed, neg Screening for alcohol abuse 692844972 Z13.39 Alcohol use screening tool administer ed, neg Benign ess ential hypertension 3674561 I10 at target below 130/80. continue same. Gastroesop hageal reflux disease 751796634 K21.9 Symptoms controlled with omeprazole . takes it prn. Mixed hyperlipidemia 267 226548 E78.2 Cholestero l is at goal, continue sameContin ue to work on diet and exercise . Family his tory of cancer of colon 296016500 Z80.0 colonoscop y UTD. every 5 Y. Impaired f asting glycemia 673519227 R73.01 worsening. HgA1c 6.3, prediabete s.continue to minimize alcohol and sweets and cut back on carbs.stay active. Degenerati ve joint disease of hand 23994206 M19.049 may use OTC diclofenac /Voltaren gel. [id number] Jackeline Spivey . MD BUTT, [facility] [address]ICE [address] [place] [address] 04/30/2023 10:33:57 04/30/2023 11:18:32 Benign essential hypertension 7064869 I10 at target at or below 130/80. continue same. at home BP 125/78 range. Mixed hyperlipidemia 267 664586 E78.2 Cholestero l is at goal, continue sameContin ue to work on diet and exercise . Impaired f asting glycemia 008905865 R73.01 improved, HgA1c 6.2, prediabete s.continue to minimize alcohol and sweets and cut back on carbs.stay active. Vesicular hand eczema 40 1475226 L30.8 Dyshidroti c eczema. does well when using gloves for housework, uses topical steroids prn.has not needed them for a long while. Gastroesop hageal reflux disease 020989020 K21.9 Symptoms controlled with omeprazole . takes it prn. Osteoarthr itis of finger joint 801185481 M19.049 inflamed right now, to take ibuprofen, take omeprazole with it, may see hand surgeon if no change and wanted a steroid shot. [id number] Jackeline Spivey . MD BUTT, [facility] OFF[address] [place], [place] [address] 10/09/2023 11:17:08 10/09/2023 12:22:33 Benign essential hypertension 2120392 I10 at target at or below 130/80. continue same. at home BP 125/78-130 /80 range. Family his tory of breast cancer 476039289 Z80.3 mammo UTD. ordered for Jan. Family his tory of cancer of colon 413202118 Z80.0 had polyps. colonoscop y UTD. every 5 Y. Gastroesop hageal reflux disease 139593991 K21.9 Symptoms controlled with omeprazole . takes it prn. Impaired f asting glycemia 738877553 R73.01 improved, HgA1c 6.1, prediabete s.continue to minimize alcohol and sweets and cut back on carbs.stay active. Mixed hyperlipidemia 267 474262 E78.2 Cholestero l is at goal, continue sameContin ue to work on diet and exercise . Vesicular hand eczema 40 7491329 L30.8 Dyshidroti c eczema. does well when using gloves for housework, uses topical steroids prn. Adult heal th examination 208619447 Z00.00 USPSTF guidelines reviewed and discussed with patient. Colonoscop y 10-27-20, redo 5 Y, and mammograph y fall 2022, has one scheduled [facility]. Vaccinatio ns up to date. Health care proxy in place.CV counseling done. on statin, no asa indicated. Depression screening 171 264064 Z13.31 depression screening tool administer ed, negative Screening for alcohol abuse 480131456 Z13.39 Alcohol use screening tool administer ed, negative Pain of to e of left foot 5069071086 54901 M79.675 pain over dorsal aspect of MTP joints, ? neuroma, to see ortho. Lesion of oral mucosa 10 60118833 530361 K13.70 nodule in mucosa under upper lip, will refer to oral surgeon for evaluation , states it gets larger at times and causes pain. [id number] Jackeline Mendez MD , [facility] [address]ICE [address] [place] [address] 01/10/2024 10:52:21 01/10/2024 11:50:49 Lesion of oral mucosa 0838348915 081158 K13.70 nodule in mucosa under upper lip, ? mucocele? she will return to oral surgeon to discuss her concerns, but advised her excisional biopsy is a good idea. [id number] CHIP ACOSTA MD , [facility] [address]ICE [address] [place] [address] 04/21/2024 09:57:26 2024 14:20:46 Benign essential hypertension 6406072 I10 At goal <130/80, continue current regimen. Gastroesop hageal reflux disease 494417668 K21.9 Continue omprazole. Impaired f asting glycemia 363127394 R73.01 A1c 6.4%. Recommend increasing to 1000 mg ER - if tolerated will send new rx. Mixed hyperlipidemia 267 473146 E78.2 At goal, continue statin. Degenerati ve joint disease involving multiple joints 784373845 M15.1 Would like to see specialist regarding arthritis. Family his tory of breast cancer 678643016 Z80.3 Goes to [facility]. Has had one benign mass removed. Monitoring [...] 10/05/2022 1 [place] [employer] aMribell Colby [id number] 2 Maribell Colby 10/05/2022 2 [facility] MEDICARE ENHANCE (INDEMNITY PLAN) Maribell Colby [id number] Maribell Colby 04/30/2023 1 [place] Maribell Colby [id number] 2 Maribell Colby 04/30/2023 2 [facility] - MEDICARE ENHANCE (INDEMNITY PLAN) Maribell Jordan Lasha [id number] Maribell Jordan Lasha 10/09/2023 1 [place] Maribell Julian Colby [id number] 2 Maribell Jordan [place] 10/09/2023 2 [facility] - MEDICARE ENHANCE (INDEMNITY PLAN) Maribell Julian Colby [id number] Maribellkimberli Colby 01/10/2024 1 [place] [facility] Maribell Colby [id number] 2 Maribell Julian Colby 01/10/2024 2 [facility] - MEDICARE ENHANCE (INDEMNITY PLAN) Maribellkimberli Colby [id number] Maribellkimberli Colby 04/21/2024 1 [place] [facility] [place]MENT [facility] Maribellkimberli Colby [id number] 2 Maribell Julian Colby 04/21/2024 2 [facility] - MEDICARE ENHANCE (INDEMNITY PLAN) Maribell Colby [id number] Maribell Colby Notes Date Note Type [...] ischemic heart disease; No peripheral vascular disease (84224); No diabetes; No carotid artery stenosis Associated [...] GFR.On statin.GERD controlled with omeprazole. Jackeline Spivey. [address] [place] [address], [phone], [facility] 10/05/2022 10:51:06 4 text/html VMG HyperlipidemiaReported bypatient.Duration:chronic Control:well controlled; LDL has been 100-130, goal is <100; treated with medications; Patient understands medications are to lower cholesterol Compliance:compliant with medications; compliant with follow-up visits; compliant with diet Barriers to CareNo identified barriers to care Context:Nonsmoker; No ischemic heart disease; No peripheral vascular disease (71239); No diabetes; No carotid artery stenosis Associated [...] 0.8, GFR >60, HgA1c 6.2. Jackeline Spivey. [address] [place] [address], [phone], [facility] 04/30/2023 11:03:30 4 text/html Risk Assessment and Lifestyle Change Counseling [...] In the past 12 months has the [employer], gas, [employer] or water [employer] threatened to shut off services?no How hard [...] ischemic heart disease; No peripheral vascular disease (71086); No diabetes; No carotid artery stenosis Associated [...] 98.6,On statin.GERD controlled with omeprazole. Jackeline Spivey. [address] [place] [address], [phone], [facility] 10/09/2023 12:11:50 4 text/html nodule under upper lip, referred to oral surgeon when seen over the summer. Told she needs surgery for biopsy.States she felt the visit was perfunctory and wishes to discuss it. Jackeline Spivey. [address] [place] [address], [phone], [facility] 01/10/2024 11:48:54 5 text/html Patient with history of hypertension, hyperlipidemia, impaired fasting glucose, hand eczema and acid reflux presents for med management. HTN: losartan 25 mg. Pre-diabetes: last A1c was 6.4%. Metformin 500 mg ER and statin. OA: hands, hip injection with cortisone. Feet, uses orthotic. Sees psychiatric specialist over at [facility] in [place]. Dr. Tineo. GERD: takes omeprazole three times a week. CHIP ACOSTA MD [address] [place] [address], [phone], [facility] 04/21/2024 17:57:59 OBGyn Episode No OBEpisode recorded.
== END 2024-07-03 14:40 | disposition home or self-care (01) ==
LOC: HO.HAP 14:39
PROVIDERS: Visit Provider Family Medicine
DX: Z13.89 Encounter for screening for other disorder (principal)

== ENCOUNTER 2024-07-15 10:19 | Outpatient (REF) | payer SELFPAY ==
--- OUTSIDE RECORDS SUMMARY | 2024-07-15 11:51 | XMS_ITS | Data Portability ---
Author Organization [facility], [facility] Address [address] [place] [address] Care Team Providers Care Air Compressor Operator Name Role Phone CHIP ACOSTA Primary Care Provider Assessment Encounter Date Assessment Date Assessment LastModified [...] HbA1c (hemoglob in A1c), blood 2023 024 [facility], [address] [place] [address], [address], 10/02/2023 14:29:48 BMP, serum or plasma 2023 024 [facility], [address] [place] [address], [address], 10/04/2023 12:15:00 HbA1c (hemoglob in A1c), blood 2022 024 [facility], [address] [place] [address], [address], 04/26/2023 12:28:00 BMP, serum or plasma 2022 024 [facility], [address] [place] [address], [address], 04/26/2023 14:13:00 Referral hand surgeon referral 2024 025 [email or web address] Agatha Redd MD, [address] [place] [address], [address], 04/23/2024 10:48:50 oral & maxillofa cial surgeon referral 2023 024 [email or web address] [facility], [address] [place] [address], [place], [address], 10/09/2023 12:24:14 orthopedi c surgeon referral 2023 024 [facility], [address] [place] [address], [id number], 10/18/2023 09:25:37 Procedures None recorded. Surgeries None recorded. Imaging None recorded. Medication Orders atorvasta tin 20 mg tablet 2024 025 [id number], [address] [place], [address], 04/21/2024 10:25:46 Patient TargetsNo targets recorded. Patient Instructions Encounter Date Encounter Id Patient Instructions Last Modified By Organization Details Last Modified Time 10/05/2022 [id number] advance directives: care instructions [email or web address] Not available 10/05/2022 10:49:15 preventing falls: care instructions [email or web address] Not available 10/05/2022 10:49:14 hearing loss: care instructions [email or web address] Not available 10/05/2022 10:49:14 well visit, over 65: care instructions [email or web address] Not available 10/05/2022 10:49:14 04/30/2023 [id number] I serve as the focal point for all health care services the patient needs. [email or web address] Not available 04/29/2023 20:10:37 Reason for Referral Oral & Maxillofacial Surgeon Referral for Lesion of oral mucosa Referring Physician: [facility], Encounter Date: 10/09/2023 Orthopedic Surgeon Referral for Pain of toe of left foot Referring Physician: [facility], Encounter Date: 10/09/2023 Hand Surgeon Referral for Ge neralized osteoarthritis Referring Physician: Chip Acosta [facility], Encounter Date: 04/21/2024 Results Created Date [...] furth er confi rmati on Not Available [address], [address], 09/25/2022 11:46:24 09/26/19 23 09/25/2022 HGB A1C estimated average glucose 134.1 mg/dL Not Available [address], [address], 09/25/2022 11:46:24 09/26/19 23 09/25/2022 BASIC METAB OLIC PANEL glucose 100 mg/dL 70-100 Not Available [address], [address], 09/25/2022 15:24:30 09/26/19 23 09/25/2022 BASIC METAB OLIC PANEL BUN 26 mg/dL 7-18 high Not Available [address], [address], 09/25/2022 15:24:30 09/26/19 23 09/25/2022 BASIC METAB OLIC PANEL creatinine 0.7 mg/dL 0.8-1. 3 low Not Available [address], [address], 09/25/2022 15:24:30 09/26/19 23 09/25/2022 BASIC METAB OLIC PANEL B/C 37.1 ratio Not Available [address], [address], 09/25/2022 15:24:30 09/26/19 23 09/25/2022 BASIC METAB [...] borat ion (CKD- EPI) Equat ion (Allison r et. al 2020) as recom luisana d by the [facility] ation . eGFR is based on age, serum creat inine , and sex. CKD-E PI does not calcu late eGFR by race, does not apply to child jen (age <18 years ), and shoul d not be used in pregn cheryl. Not Available [address], [address], 09/25/2022 15:24:30 09/26/19 23 09/25/2022 BASIC METAB OLIC PANEL sodium 140 mmol/ L 136-14 5 Not Available [address], [address], 09/25/2022 15:24:30 09/26/19 23 09/25/2022 BASIC METAB OLIC PANEL potassium 4.1 mmol/ L 3.5-5. 1 Not Available [address], [address], 09/25/2022 15:24:30 09/26/19 23 09/25/2022 BASIC METAB OLIC PANEL chloride 102 mmol/ L 96-107 Not Available [address], [address], 09/25/2022 15:24:30 09/26/19 23 09/25/2022 BASIC METAB OLIC PANEL anion gap 11.1 5.0-15 .0 Not Available [address], [address], 09/25/2022 15:24:30 09/26/19 23 09/25/2022 BASIC METAB OLIC PANEL CO2 27 mmol/ L 21-32 Not Available [address], [address], 09/25/2022 15:24:30 09/26/19 23 09/25/2022 BASIC METAB OLIC PANEL calcium 9.5 mg/dL 8.5-10 .3 Not Available [address], [address], 09/25/2022 15:24:30 09/26/19 23 09/25/2022 LIPID PANEL cholesterol 186 mg/dL <200 mg/dl Luice able 200-2 39 mg/dl Borde rline High >240 mg/dl High Not Available [address], [address], 09/25/2022 15:24:31 09/26/19 23 09/25/2022 LIPID PANEL triglyceride s 177 mg/dL <150 mg/dL Ava l 150-1 99 mg/dL Borde rline High 200-4 99 mg/dL High >500 mg/dL Very High Not Available [address], [address], 09/25/2022 15:24:31 09/26/19 23 09/25/2022 LIPID PANEL direct HDL 50 mg/dL <40 mg/dl - Major Risk for CHD >60 mg/dl - Negat donna Risk for CHD Not Available [address], [address], 09/25/2022 15:24:31 09/26/19 23 09/25/2022 LDL - [...] 0-1 risk facto r is not monica leny. Not Available [address], [address], 09/25/2022 15:24:32 04/26/19 24 04/26/2023 HGB A1C [...] furth er confi rmati on Not Available [address], [address], 04/26/2023 12:28:00 04/26/19 24 04/26/2023 HGB A1C estimated average glucose 131.2 mg/dL Not Available [address], [address], 04/26/2023 12:28:00 04/26/19 24 04/26/2023 BASIC METAB OLIC PANEL glucose 108 mg/dL 70-100 high Not Available [address], [address], 04/26/2023 14:13:00 04/26/19 24 04/26/2023 BASIC METAB OLIC PANEL BUN 21 mg/dL 7-18 high Not Available [address], [address], 04/26/2023 14:13:00 04/26/19 24 04/26/2023 BASIC METAB OLIC PANEL creatinine 0.8 mg/dL 0.8-1. 3 Not Available [address], [address], 04/26/2023 14:13:00 04/26/19 24 04/26/2023 BASIC METAB OLIC PANEL B/C 26.3 ratio Not Available [address], [address], 04/26/2023 14:13:00 04/26/19 24 04/26/2023 BASIC METAB [...] be used in pregn cheryl. Not Available [address], [address], 04/26/2023 14:13:00 04/26/19 24 04/26/2023 BASIC METAB OLIC PANEL sodium 142 mmol/ L 136-14 5 Not Available [address], [address], 04/26/2023 14:13:00 04/26/19 24 04/26/2023 BASIC METAB OLIC PANEL potassium 4.2 mmol/ L 3.5-5. 1 Not Available [address], [address], 04/26/2023 14:13:00 04/26/19 24 04/26/2023 BASIC METAB OLIC PANEL chloride 101 mmol/ L 96-107 Not Available [address], [address], 04/26/2023 14:13:00 04/26/19 24 04/26/2023 BASIC METAB OLIC PANEL anion gap 11.4 5.0-15 .0 Not Available [address], [address], 04/26/2023 14:13:00 04/26/19 24 04/26/2023 BASIC METAB OLIC PANEL CO2 30 mmol/ L 21-32 Not Available [address], [address], 04/26/2023 14:13:00 04/26/19 24 04/26/2023 BASIC METAB OLIC PANEL calcium 9.9 mg/dL 8.5-10 .3 Not Available [address], [address], 04/26/2023 14:13:00 04/26/19 24 04/26/2023 LIPID PANEL cholesterol 196 mg/dL <200 mg/dl Lucie able 200-2 39 mg/dl Borde rline High >240 mg/dl High Not Available [address], [address], 04/26/2023 14:13:01 04/26/19 24 04/26/2023 LIPID PANEL triglyceride s 212 mg/dL <150 mg/dL Ava l 150-1 99 mg/dL Borde rline High 200-4 99 mg/dL High >500 mg/dL Very High Not Available [address], [address], 04/26/2023 14:13:01 04/26/19 24 04/26/2023 LIPID PANEL direct HDL 55 mg/dL <40 mg/dl - Major Risk for CHD >60 mg/dl - Negat donna Risk for CHD Not Available [address], [address], 04/26/2023 14:13:01 04/26/19 24 04/26/2023 LDL - [...] r is not neces leny. Not Available [address], [address], 04/26/2023 14:13:02 10/02/19 24 10/02/2023 HGB A1C [...] furth er confi rmati on Not Available [address], [address], 10/02/2023 14:29:47 10/02/19 24 10/02/2023 HGB A1C estimated average glucose 128.4 mg/dL Not Available [address], [address], 10/02/2023 14:29:47 10/02/19 24 10/04/2023 BASIC METAB OLIC PANEL glucose 94 mg/dL 70-100 Not Available [address], [address], 10/04/2023 12:15:00 10/02/19 24 10/04/2023 BASIC METAB OLIC PANEL BUN 19 mg/dL 7-18 high Not Available [address], [address], 10/04/2023 12:15:00 10/02/19 24 10/04/2023 BASIC METAB OLIC PANEL creatinine 0.8 mg/dL 0.8-1. 3 Not Available [address], [address], 10/04/2023 12:15:00 10/02/19 24 10/04/2023 BASIC METAB OLIC PANEL B/C 23.8 ratio Not Available [address], [address], 10/04/2023 12:15:00 10/02/19 24 10/04/2023 BASIC METAB [...] be used in pregn cheryl. Not Available [address], [address], 10/04/2023 12:15:00 10/02/19 24 10/04/2023 BASIC METAB OLIC PANEL sodium 141 mmol/ L 136-14 5 Not Available [address], [address], 10/04/2023 12:15:00 10/02/19 24 10/04/2023 BASIC METAB OLIC PANEL potassium 4.1 mmol/ L 3.5-5. 1 Not Available [address], [address], 10/04/2023 12:15:00 10/02/19 24 10/04/2023 BASIC METAB OLIC PANEL chloride 103 mmol/ L 96-107 Not Available [address], [address], 10/04/2023 12:15:00 10/02/19 24 10/04/2023 BASIC METAB OLIC PANEL anion gap 10.0 5.0-15 .0 Not Available [address], [address], 10/04/2023 12:15:00 10/02/19 24 10/04/2023 BASIC METAB OLIC PANEL CO2 28 mmol/ L 21-32 Not Available [address], [address], 10/04/2023 12:15:00 10/02/19 24 10/04/2023 BASIC METAB OLIC PANEL calcium 9.3 mg/dL 8.5-10 .3 Not Available [address], [address], 10/04/2023 12:15:00 04/18/19 25 04/18/2024 HGB A1C [...] furth er confi rmati on Not Available [address], [address], 04/18/2024 12:20:20 04/18/19 25 04/18/2024 HGB A1C estimated average glucose 137.0 mg/dL Not Available [address], [address], 04/18/2024 12:20:20 04/18/19 25 04/18/2024 BASIC METAB OLIC PANEL glucose 99 mg/dL 70-100 Not Available [address], [address], 04/18/2024 13:54:33 04/18/19 25 04/18/2024 BASIC METAB OLIC PANEL BUN 18 mg/dL 7-18 Not Available [address], [address], 04/18/2024 13:54:33 04/18/19 25 04/18/2024 BASIC METAB OLIC PANEL creatinine 0.8 mg/dL 0.8-1. 3 Not Available [address], [address], 04/18/2024 13:54:33 04/18/19 25 04/18/2024 BASIC METAB OLIC PANEL B/C 22.5 ratio Not Available [address], [address], 04/18/2024 13:54:33 04/18/19 25 04/18/2024 BASIC METAB [...] be used in pregn cheryl. Not Available [address], [address], 04/18/2024 13:54:33 04/18/19 25 04/18/2024 BASIC METAB OLIC PANEL sodium 142 mmol/ L 136-14 5 Not Available [address], [address], 04/18/2024 13:54:33 04/18/19 25 04/18/2024 BASIC METAB OLIC PANEL potassium 4.4 mmol/ L 3.5-5. 1 Not Available [address], [address], 04/18/2024 13:54:33 04/18/19 25 04/18/2024 BASIC METAB OLIC PANEL chloride 101 mmol/ L 96-107 Not Available [address], [address], 04/18/2024 13:54:33 04/18/19 25 04/18/2024 BASIC METAB OLIC PANEL anion gap 11.4 5.0-15 .0 Not Available [address], [address], 04/18/2024 13:54:33 04/18/19 25 04/18/2024 BASIC METAB OLIC PANEL CO2 30 mmol/ L 21-32 Not Available [address], [address], 04/18/2024 13:54:33 04/18/19 25 04/18/2024 BASIC METAB OLIC PANEL calcium 10.0 mg/dL 8.5-10 .3 Not Available [address], [address], 04/18/2024 13:54:33 04/18/19 25 04/18/2024 LIPID PANEL cholesterol 176 mg/dL <200 mg/dl Lucie able 200-2 39 mg/dl Borde rline High >240 mg/dl High Not Available [address], [address], 04/18/2024 13:54:34 04/18/19 25 04/18/2024 LIPID PANEL triglyceride s 225 mg/dL <150 mg/dL Ava l 150-1 99 mg/dL Borde rline High 200-4 99 mg/dL High >500 mg/dL Very High Not Available [address], [address], 04/18/2024 13:54:34 04/18/19 25 04/18/2024 LIPID PANEL direct HDL 52 mg/dL <40 mg/dl - Major Risk for CHD >60 mg/dl - Negat donna Risk for CHD Not Available [address], [address], 04/18/2024 13:54:34 04/18/19 25 04/18/2024 LDL - [...] r is not neces leny. Not Available [address], [address], 04/18/2024 13:54:35 01/18/20 23 01/16/2023 MAMMO , [...] Family history of malignant neoplasm of ovary 257150090 Completed 08/04/2016 Meredith Uribe NP [address] [place], [place] [address], [address], [facility] 12:41:04 Family history of breast cancer 017858324 Active Meredith Uribe NP [address] [place] [address] [place], [address], [facility] 13:12:12 Family history of cancer of colon 230955298 Active 2016 Meredith Uribe NP [address] [place], [place] [address], [address], [facility] 12:41:19 Gastroesoph ageal reflux disease 592252029 Active 2019 Jackeline broderick MD [address] [place], [place] [address], [address], [facility] 09:46:53 Vesicular eczema of hand 312088669 Active 2020 Jackeline broderick MD [address] [place] [address] [place], [address], [facility] 1 09:59:43 Mixed hyperlipide emile 714811031 Active 2003 Meredith Uribe NP [address] [place] [address] [place], [address], [facility] 13:12:12 Psychogenic headache 32768447 Completed 200102/01/2009 Meredith Uribe NP [address] [place], [place] [address], [address], [facility] 13:07:14 Essential hypertensio n 54243307 Completed 200303/25/2012 Meredith Uribe NP [address] [place] [address] [place], [address], [facility] 13:07:14 Lateral epicondylit is 693646572 Completed 03/25/2012 Meredith Uribe NP [address] [place], [address], [facility] 13:07:15 Palpitation s 71520049 Completed 200403/25/2012 Meredith Uribe NP [address] [place], [address], [facility] 13:07:15 Pain of multiple joints 88112180 Completed 03/25/2012 Meredith Uribe NP [address] [place], [address], [facility] 13:07:14 Benign essential hypertensio n 6710448 Active 2003 Meredith Uribe NP [address] [place], [address], [facility] 13:12:12 Neck pain 76193696 Completed 200703/25/2012 Meredith Uribe NP [address] [place], [address], [facility] 13:07:15 Noninflamma tory disorder of the vagina 56356099 Completed 200402/01/2009 Meredith Uribe NP [address] [place], [address], [facility] 13:07:15 Dysfunction al uterine bleeding Completed 200403/25/2012 Meredith Uribe NP [address] [place], [address], [facility] 13:07:14 Tachycardia 3896542 Completed 200303/25/2012 Meredith Uribe NP [address] [place], [address], [facility] 13:07:15 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 27996633 Completed 200702/01/2009 Meredith Uribe NP [address] [place], [address], [facility] 13:07:14 Pain of joint 95326495 Completed 200403/25/2012 Meredith Uribe NP [address] [place], [address], [facility] 13:07:14 Acute maxillary sinusitis 63684023 Completed 200102/01/2009 Meredith Uribe NP [address] [place], [address], [facility] 13:07:14 Elevated blood-press ure reading without diagnosis of hypertensio n 860661430 Completed 200102/01/2009 Meredith Uribe NP [address] [place], [address], [facility] 13:07:15 Impaired fasting glycemia 326026151 Active Meredith Uribe NP [address] [place], [address], [facility] 13:12:12 Hyperlipide emile 34415544 Completed 200303/25/2012 Meredith Uribe NP [address] [place], [address], [facility] 13:07:14 Acute bronchitis 04327784 Completed 03/25/2012 Meredith Uribe NP [address] [place], [address], [facility] 13:07:14 Malaise and fatigue 256854573 Completed 200403/25/2012 Meredith Uribe NP [address] [place], [address], [facility] 13:07:15 Headache 39815993 Completed 199902/01/2009 Meredith Uribe NP [address] [place], [address], [facility] 13:07:15 Viral disease 75036889 Completed 200002/01/2009 Meredith Uribe NP [address] [place], [address], [facility] 13:07:14 Sleep disorder 65560514 Completed 03/25/2012 Meredith Uribe NP [address] [place], [address], [facility] 13:07:15 Mammography abnormal 333689762 Completed 10/27/2014 Meredith Uribe NP [address] [place], [address], [facility] 13:07:15 Congenital anomaly of skin 583140087 Completed 03/25/2012 Meredith Uribe NP [address] [place], [address], [facility] 13:07:15 Primary malignant neoplasm of female breast 11624691 Completed 200303/25/2012 Meredith Uribe NP [address] [place], [address], [facility] 13:07:14 Menstruatio n finding Completed 200503/25/2012 Meredith Uribe NP [address] [place], [address], [facility] 13:07:15 Acute sinusitis 45835750 Completed 03/25/2012 Meredith Uribe NP [address] [place], [address], [facility] 13:07:14 Acute sinusitis 82174453 Completed 199902/01/2009 Meredith Uribe NP [address] [place], [address], [facility] 13:07:14 Joint pain in ankle and foot Completed 03/25/2012 Meredith Uribe NP [address] [place], [address], [facility] 13:07:14 Finding of trunk structure 434246884 Completed 200403/25/2012 Meredith Uribe NP [address] [place], [address], [facility] 13:07:15 Breast lump 72582977 Completed 200103/25/2012 Meredith Uribe NP [address], [place], [address], [facility] 13:07:14 Gastrointes tinal hemorrhage 90075893 Completed 200403/25/2012 Meredith Uribe NP [address], [place], [address], [facility] 13:07:14 Common cold 75928722 Completed 200002/01/2009 Meredith Uribe NP [address], [place], [address], [facility] 13:07:14 Mammography abnormal 885650965 Completed 200703/25/2012 Meredith Uribe NP [address] [place], [address], [facility] 13:07:15 Menopausal symptom 83259746 Completed 200803/25/2012 Meredith Uribe NP [address] [place], [address], [facility] 13:07:14 Solitary cyst of breast 678458421 Completed 200603/25/2012 Meredith Uribe NP [address] [place], [address], [facility] 13:07:14 Menopausal and postmenopau markus disorders 245811587 Completed 200702/01/2009 Meredith Uribe NP [address], [place], [address], [facility] 13:07:14 Problem Notes None recorded. Procedures Surgical History Date Name Laterality Status Provider Name and Address Organization Details Recorded Time 10/09/19 24 Medicare Wellness Visit completed NOLA Morrison [facility] 10/08/2023 09:36:32 10/09/19 24 Cardiovascular disease risk reduction counseling completed NOLA Morrison [facility] 10/08/2023 09:38:03 10/09/19 24 prevention-annual alcohol misuse screening completed NOLA Morrison [facility] 10/08/2023 09:38:04 04/30/19 24 [id number] completed Jackeline Spivey. [address] [place] [address], [address], [facility] 04/29/2023 20:10:38 10/06/19 23 Medicare Wellness Visit completed Tamiko NOLA Farrell [facility] 10/02/2022 14:12:12 10/06/19 23 Cardiovascular disease risk reduction counseling completed Tamiko NOLA Farrell [facility] 10/02/2022 14:12:58 10/06/19 23 prevention-annual alcohol misuse screening completed Tamiko NOLA Farrell [facility] 10/02/2022 14:13:02 08/30/19 22 Medicare Wellness Visit completed Tamiko NOLA Farrell [facility] 08/29/2021 12:05:23 08/30/19 22 Alcohol use screening completed Tamiko NOLA Farrell [facility] 08/29/2021 12:05:23 08/30/19 22 Cardiovascular disease risk reduction counseling completed Tamiko NOLA Farrell [facility] 08/29/2021 12:05:23 10/28/19 21 Tassoni - Colonoscopy completed Marshall Back MD [address] [place] [address], [address], [facility] 10/27/2020 08:11:19 10/28/19 21 colonoscopy completed Jackeline Spivey. [address] [place] [address], [address], [facility] 10/31/2020 16:05:15 07/30/19 21 Medicare Wellness Visit completed Dunia Le [facility] 07/29/2020 09:03:31 07/30/19 21 prevention-cardiov ascular risk reduction counseling completed Dunia Le [facility] 07/29/2020 09:03:31 07/30/19 21 prevention-annual alcohol misuse screening completed Dunia Le [facility] 07/29/2020 09:03:31 06/12/19 18 POC Urinalysis Testing completed Gloria Hinojosa LPN [facility] 06/11/2017 09:34:32 08/24/19 16 Tassoni - Colonoscopy completed Marshall Back MD [address] [place] [address], [address], [facility] 08/24/2015 11:21:39 08/24/19 16 Tassoni - EGD completed Marshall Back MD [address] [place] [address], [address], [facility] 08/24/2015 10:48:17 10/01/19 05 completed Not Available [facility] 01/26/2011 06:05:52 left oophorectomy completed Mary Grace Spivey. [address] [place] [address], [address], [facility] 02/16/2020 08:11:22 Imaging Results Imaging Date Name [...] Name and Address Organization Details Recorded Time 76502 Substance with sulfonami de structure and antibacte rial mechanism of action (substanc e) medicatio n Not available Not available Not available 02/01/2009 93795 8003 SNOMED BELLS PALSY FER Hernandez [facility] 16:24:01 03622 lisinopri l medicatio n cough Not available Not available 02/01/2009 72420 RxNorm Not Available [facility] 06:05:41 aspirin medicatio n abdominal pain Not available Not available 12/14/2016 1191 RxNorm [place] Dhillon, [facility] 7 10:29:58 ibuprofen medicatio n Not available Not available Not available 12/14/2016 5640 RxNorm Jackeline broderick MD [address] [place] [address], [place], [address] , [facility] 10:51:49 08486 Bactrim medicatio n Not available Not available Not available 08/02/2009 75716 9 RxNorm BELLS PALSY Betty argueta RN null, [facility] 1 16:23:31 60435 penicilli n G Not available hives Not available Not available 08/02/2009 7980 RxNorm Not Available [facility] 1 06:05:41 Medications Name Sig Start [...] Updated DateTime 3 163.83 cm 24 kg/m2 54585.1 2 g 75 /min 100 % 100 % 122 mm[Hg] 80 mm[Hg] NOLA Morrison [facility] 3 10:31:22 Date Recorded Body height Body mass index (BMI) Body weight Heart rate Oxygen saturation Oxygen saturation in Arterial blood by Pulse oximetry Systolic blood pressure Diastolic blood pressure Provider Name and Address Organization Details Last Updated DateTime 4 163.83 cm 24.7 kg/m2 35628.4 9 g 77 /min 99 % 99 % 140 mm[Hg] 80 mm[Hg] NOLA Morrison [facility] 4 10:42:01 Date Recorded Systolic blood pressure Diastolic blood pressure Provider Name and Address Organization Details Last Updated DateTime 04/30/2023 130 mm[Hg] 80 mm[Hg] Jackeline Spivey. [address] [place] [address], [address], [facility] 04/30/2023 10:56:20 Date Recorded Body height Body mass index (BMI) Body weight Heart rate Oxygen saturation Oxygen saturation in Arterial blood by Pulse oximetry Systolic blood pressure Diastolic blood pressure Provider Name and Address Organization Details Last Updated DateTime 4 163.83 cm 23.5 kg/m2 85126.3 4 g 63 /min 99 % 99 % 120 mm[Hg] 80 mm[Hg] NOLA Morrison [facility] 4 11:39:03 Date Recorded Body height Body mass index (BMI) Body weight Heart rate Oxygen saturation Oxygen saturation in Arterial blood by Pulse oximetry Systolic blood pressure Diastolic blood pressure Provider Name and Address Organization Details Last Updated DateTime 4 163.83 cm 24.5 kg/m2 29301.8 9 g 75 /min 99 % 99 % 120 mm[Hg] 70 mm[Hg] NOLA Morrison [facility] 4 11:20:24 Date Recorded Body height Body mass index (BMI) Body weight Heart rate Systolic blood pressure Diastolic blood pressure Provider Name and Address Organization Details Last Updated DateTime 5 163.83 cm 24.8 kg/m2 37578.0 8 g 83 /min 122 mm[Hg] 70 mm[Hg] Betty Sheron [facility] 5 10:12:50 Social History Question Answer Notes LastModified by Organizat ion Details LastModified Time Tobacco Smoking Status Never Smoker NOLA Morrison [facility] 08/29/2021 14:22:46 What Is Your Level Of Alcohol Consumption? Occasional A Glass Of Wine With Dinner On Weekends [email or web address] Information not available 10/09/2023 Do You Wear A Helmet When Biking? Yes [email or web address] Information not available 05/07/2015 What Is Your Level Of Caffeine Consumption? Occasional Tea Or Diet Soda Occasionally Information not available 04/28/2014 How Much Tobacco Do You Chew? None [email or web address] Information not available 05/07/2015 Are You Currently Employed? No [email or web address] Information not available 08/29/2021 What Type Of Diet Are You Following? REGULAR Information not available 04/28/2014 Which Illicit Or Recreational Drugs Have You Used? None [facility] Information not available 07/29/2020 Do You Or Have You Ever Used E-cigarettes Or Vape? Never Used Electronic Cigarettes [email or web address] Information not available 08/29/2021 What Is The Highest Grade Or Level Of School You Have Completed Or The Highest Degree You Have Received? 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 No [email or web address] Information not available 08/29/2021 How Many Days In The Past Year Have You Had A Heavy Drinking Consumption (4+ Female, 5+ Male)? 0 [email or web address] Information not available 10/16/2012 Are There Any Guns Present In Your Home? No [email or web address] Information not available 08/29/2021 Do You Use Insect Repellent Routinely? Yes [email or web address] Information not available 08/29/2021 Live Alone Or [...] Seat Belt Or Car Seat Routinely? Yes Information not available 08/29/2021 Seat Belts Used Routinely Yes Information not available 04/28/2014 Smoke Alarm In Home Yes Information not available 05/07/2015 Do You Have Smoke And Carbon Monoxide Detectors In Your Home? Yes [email or web address] Information not available 08/29/2021 Are You Passively Exposed To Smoke? No [email or web address] Information not available 08/29/2021 Do You Or Have You Ever Used Smokeless Tobacco? Never Used Smokeless Tobacco [email or web address] Information not available 08/29/2021 How Much Tobacco Do You Smoke? No [email or web address] Information not available 08/29/2021 General Stress Level Low [email or web address] Information not available 05/07/2015 Do You Use Any Illicit Or Recreational Drugs? No Information not available 01/25/2021 Do You Use Sunscreen Routinely? Yes Information not available 04/28/2014 How Many Years Have You Smoked Tobacco? 0 Information not available 08/29/2021 Sex: Female Functional Status Question Answer Note LastModified by Organizat ion Details LastModified Time What is your exercise level? Occasional walks 3 times a week Information not available 08/29/2021 Mental Status None [...] HTN, father of CAD at 72; brother HI at 60 Cancer: Family history is remarkable [...] virus, trivalent, preservative 1 completed Not Available [facility] 03/29/2019 02:18:14 DTaP, unspecified formulation 5 completed Not Available [facility] 01/25/2011 05:21:29 influenza, unspecified formulation 8 completed Not Available [facility] 01/25/2011 05:22:13 influenza, unspecified formulation 0 completed Not Available [facility] 01/25/2011 05:22:52 Influenza, split virus, trivalent, PF 3 completed Not Available [facility] 03/29/2019 02:18:58 zoster live 5 completed Not Available [facility] 03/29/2019 02:19:44 Td (adult), 5 Lf tetanus toxoid, preservative free, adsorbed 5 completed Not Available [facility] 03/29/2019 02:19:45 Influenza, split virus, quadrivalent, PF 5 completed Not Available [facility] 03/29/2019 02:19:52 influenza, unspecified formulation 2 completed [place] Zambrano, [facility] 03/25/2012 08:23:22 Influenza, split virus, quadrivalent, PF 6 completed Not Available [facility] 03/29/2019 02:20:42 Influenza, split virus, quadrivalent, PF 7 completed Not Available [facility] 03/29/2019 02:27:42 Influenza, split virus, trivalent, preservative 4 completed Anabella Yoder LPN null, [facility] 04/28/2014 08:36:07 Tdap 5 completed Gabriella Crain LPN null, [facility] 05/19/2014 10:19:24 Influenza, split virus, quadrivalent, PF 8 completed Not Available [facility] 03/29/2019 02:22:58 Influenza, split virus, quadrivalent, PF 9 completed Not Available [facility] 03/29/2019 02:24:07 Pneumococcal conjugate PCV 13 0 completed Susan George CMA null, [facility] 12/15/2019 11:25:40 Influenza, high-dose, quadrivalent, PF 0 completed Susan George CMA null, [facility] 12/15/2019 11:26:51 COVID-19, mRNA, LNP-S, PF, 100 mcg/0.5mL dose or 50 mcg/0.25mL dose 1 completed Sy Wade, [employer] SH[employer]ENER null, [facility] 08/02/2020 09:51:06 COVID-19, mRNA, LNP-S, PF, 100 mcg/0.5mL dose or 50 mcg/0.25mL dose 1 completed Sy Wade [employer] null, [facility] 08/02/2020 09:52:05 zoster recombinant 1 completed Nilmari RMA Farrell null, [facility] 01/25/2021 08:19:13 COVID-19, mRNA, LNP-S, PF, 100 mcg/0.5mL dose or 50 mcg/0.25mL dose 1 completed [facility] 16:33:46 Influenza, split virus, quadrivalent, preservative 1 completed Nilmari, RMA Farrell null, [facility] 01/25/2021 08:17:55 pneumococcal polysaccharide PPV23 1 completed Nilmari, RMA Farrell null, [facility] 01/25/2021 08:18:43 COVID-19, mRNA, LNP-S, PF, 100 mcg/0.5mL dose or 50 mcg/0.25mL dose 2 completed Nilmari, RMA Farrell null, [facility] 08/29/2021 12:08:38 zoster recombinant 1 completed Nilmari, RMA Farrell null, [facility] 09/05/2021 15:24:16 COVID-19, mRNA, LNP-S, bivalent, PF, 50 mcg/0.5 mL or 25mcg/0.25 mL dose 3 completed Dunia Le [employer] null, [facility] 08/24/2022 08:17:56 influenza, unspecified formulation 2 completed Jackeline Spivey. [address] [place] [address], [id number], [facility] 10/05/2022 10:46:41 Influenza, split virus, quadrivalent, preservative 3 completed NOLA Morrison null, [facility] 11/26/2022 19:09:19 Respiratory syncytial virus (RSV) vaccine, unspecified 3 completed Tamiko RMA Farrell null, [facility] 01/15/2023 11:04:41 COVID-19, mRNA, LNP-S, bivalent, PF, 50 mcg/0.5 mL or 25mcg/0.25 mL dose 4 completed Tamiko RMA Farrell null, [facility] 05/15/2023 13:50:04 COVID-19, mRNA, LNP-S, PF, 100 mcg/0.5mL dose or 50 mcg/0.25mL dose 4 completed Tamiko RMA Farrell null, [facility] 11/27/2023 13:46:39 Influenza, high-dose, trivalent, PF 4 completed Tamiko RMA Farrell null, [facility] 12/23/2023 20:11:59 COVID-19, mRNA, LNP-S, bivalent, PF, 50 mcg/0.5 mL or 25mcg/0.25 mL dose 5 completed Dunia Le CMA null, [facility] 07/14/2024 08:47:37 Past Encounters Encounter ID Performer Location Encounter Start Date Encounter Closed Date Diagnosis/Indication Diagnosis SNOMED-CT Code Diagnosis ICD10 Code Diagnosis Note [id number] Philipp Dorantes , [facility] [place] [address] [place] [address] 02/22/2000 09:00:00 04/01/2008 02:02:29 [id number] [facility] Radiology , [facility] [address] [facility] [place] [address] 07/30/2000 13:30:00 04/01/2008 02:02:29 [id number] Philipp Dorantes , [facility] [address] [place] [address] 1 07/30/2000 12:15:00 04/01/2008 02:02:29 [id number] Philipp Dorantes. , [facility] OFFICE [address] [place] [id number] 1 03/13/2000 11:15:00 04/01/2008 02:02:29 [id number] Consuelo Olivier , [facility] OFF[facility] [address] [place] [address] 1 05/24/2001 09:15:00 04/01/2008 02:02:29 [id number] [facility] Radiology , [facility] [address] [place] [address] 08/02/2001 09:17:12 04/01/2008 02:02:29 [id number] Mauricio Roberts MD Radiology , [facility] [address] [place] [address] 08/02/2001 00:00:00 04/01/2008 02:02:29 [id number] Consuelo Cole MD , [facility] OFFICE [address] [place] [id number] 1 08/02/2001 08:22:20 04/01/2008 02:02:29 [id number] Consuelo Cole MD , [facility] OFFICE [address] [place] [id number] 1 08/15/2001 09:02:03 04/01/2008 02:02:29 [id number] Consuelo Cole MD , [facility] OFFICE [address] [place] [id number] 1 08/23/2001 14:00:47 04/01/2008 02:02:29 [id number] Consuelo Cole MD , [facility] OFFICE [address] [place] [address] 1 03/26/2003 15:35:29 03/27/2003 09:46:53 [id number] Consuelo Cole MD , [facility] OFF[facility] [address] [place] [address] 1 05/21/2003 15:15:27 05/22/2003 07:48:28 [id number] [facility] Techn[facility] Radiology , [facility] [address] [place], [place] [address] 06/02/2003 08:58:25 06/02/2003 11:45:31 [id number] [facility] Techn[facility] Radiology , [facility] [address] [place] [address] 06/02/2003 00:00:00 04/01/2008 02:02:29 [id number] [facility] - [address] [place] [address] 1 06/02/2003 07:29:04 06/02/2003 12:14:49 [id number] [facility] - [address] [place] [address] 1 09/16/2003 07:26:20 09/16/2003 08:28:33 [id number] Consuelo Cole MD , [facility]ICE [address] [place] [address] 1 10/14/2003 16:25:54 10/15/2003 08:23:03 [id number] [facility] - [address] [place] [address] 1 01/20/2004 07:28:04 01/20/2004 08:08:41 [id number] [facility] Techn[facility] Radiology , [facility] [address] [place] [address] 06/23/2004 09:21:27 06/24/2004 08:10:35 [id number] [facility] Techn[facility] Radiology , [address] [place] [address] 1 06/23/2004 00:00:00 04/01/2008 02:02:29 [id number] Consuelo Cole MD , [facility] [address] [place] [address] 1 07/01/2004 16:26:40 07/04/2004 09:06:26 [id number] FP TREATMENT NURSE [facility], [facility] [place]ICE [address] [place] [address] 1 07/05/2004 11:25:55 07/05/2004 17:39:27 [id number] FP TREATMENT NURSE [facility], [facility] [place]ICE [address] [place] [address] 1 07/06/2004 11:17:37 07/07/2004 08:54:16 [id number] MD FILOMENA Beltre, [facility] OFFICE [address] [place] [address] 1 07/12/2004 00:00:00 04/01/2008 02:02:29 [id number] [facility] - [facility] [address] [place] [address] 07/12/2004 07:31:14 07/12/2004 08:15:38 [id number] Consuelo Cole MD FP, [facility] OFFICE [address] [place] [id number] 1 07/19/2004 09:55:42 07/19/2004 13:43:54 [id number] ASP, MARY KIM MD ASP, [facility] [address] [facility] [place] [address] 1 09/30/2004 07:57:59 09/30/2004 17:54:01 [id number] FP TREATMENT NURSE [facility], [facility] [place]ICE [address] [place] [address] 1 10/14/2004 16:19:01 10/14/2004 17:25:32 [id number] [facility] - [address] [place] [address] 01/13/2005 07:38:03 01/13/2005 08:32:44 [id number] Lucero ARROYO , [facility] OFFICE [address] [place] [address] 01/12/2005 15:12:47 01/16/2005 15:37:17 [id number] [facility]TR[facility] Technolog[facility] st Radiology , [address] [place] [address] 01/16/2005 14:05:52 01/16/2005 14:30:13 [id number] [facility] Radiology , [address] [place] [address] 01/16/2005 00:00:00 04/01/2008 02:02:29 [id number] Consuelo Cole MD , [facility]ICE [address] [place] [address] 1 01/26/2005 11:42:51 01/27/2005 08:57:30 [id number] [facility] - [address] [place] [address] 01/26/2005 12:40:52 01/26/2005 12:41:14 [id number] Meredith Uribe NP FP, [facility] [place]ICE [address] [place] [address] 1 07/03/2005 09:13:19 07/04/2005 09:09:07 [id number] [facility] Radiology , [address] [place] [address] 1 07/03/2005 08:52:34 07/04/2005 08:31:14 [id number] [facility] Radiology , [address] [place] [address] 1 07/03/2005 00:00:00 04/01/2008 02:02:29 [id number] [facility] - [address] [place] [address] 07/12/2005 07:34:12 07/12/2005 08:24:19 [id number] [facility] Y Techn[facility] Radiology , [address] [place] [address] 1 07/20/2005 15:30:44 07/20/2005 15:36:14 [id number] [facility] Y Techn[facility] Radiology , [address] [place] [address] 1 07/20/2005 00:00:00 04/01/2008 02:02:29 [id number] ANTON Nayak, [facility] [address] [place] [address] 1 08/15/2005 08:27:36 08/15/2005 14:16:22 [id number] [facility] Technolog[facility] Radiology , [address] [place] [address] 1 10/16/2005 13:55:03 10/16/2005 14:35:40 [id number] [facility] Technolog[facility] st Radiology , [address] [place] [address] 1 10/16/2005 00:00:00 04/01/2008 02:02:29 [id number] ANTON Nayak, [facility] OFFICE [address] [place] [address] DR [place]AC[place] [address] 10/16/2005 13:19:22 10/16/2005 14:46:38 [id number] MD FILOMENA Moreland, [facility] OFFICE [address] [place] [address] [place] [address] 01/04/2006 15:14:37 01/09/2006 08:20:32 [id number] [facility] - [address] [place] [address] 1 01/24/2006 08:14:30 01/24/2006 08:42:49 [id number] [facility] Techn[facility] Radiology , [address] [place] [address] 04/18/2006 08:49:08 04/19/2006 08:27:28 [id number] [facility] Techn[facility] Radiology , [address] [place] [address] 1 04/18/2006 00:00:00 04/01/2008 02:02:29 [id number] [facility] - [address] [place] [address] 07/17/2006 08:31:51 07/17/2006 08:31:54 [id number] [facility] Y Technolog[facility] Radiology , [address] [place] [address] 08/09/2006 08:50:55 08/09/2006 12:10:35 [id number] [facility] Y Technolog[facility] Radiology , [address] [place] [address] 08/09/2006 00:00:00 04/01/2008 02:02:29 [id number] MD FILOMENA Moreland, [facility] [place] [address] [place] [address] 1 08/09/2006 08:00:33 08/10/2006 07:33:25 [id number] [facility] Technolog[facility] st Radiology , [address] [place] [address] 11/09/2006 15:29:39 11/09/2006 15:57:30 [id number] [facility] Y Technolog[facility] Radiology , [address] [place] [address] 1 08/12/2007 10:44:10 08/12/2007 14:00:12 [id number] [facility] - [address] [place] [address] 1 08/12/2007 08:41:51 08/12/2007 08:41:59 [id number] MD FILOMENA Moreland, [facility] OFFICE [address] [place] [address] 08/15/2007 10:56:20 08/19/2007 09:13:16 [id number] [facility] Y Technolog[facility] Radiology , [address] [place] [address] 08/15/2007 10:34:40 08/15/2007 13:21:52 [id number] [facility] RADIOLOGY Technologi st Radiology , [address] [place] [address] 08/15/2007 12:20:18 08/15/2007 13:19:10 [id number] Maribell Muir, PT Physical Therapy, [address] [place] [address] 09/04/2007 08:49:17 09/04/2007 08:49:37 [id number] Maribell Muir, PT Physical Therapy, [address] [place] [address] 09/10/2007 13:28:10 09/10/2007 13:28:56 [id number] Maribell Muir, PT Physical Therapy, [address] [place] [address] 09/12/2007 10:46:09 09/12/2007 10:46:53 [id number] [facility] Technolog[facility] st Radiology , [address] [place] [address] 1 11/15/2007 08:18:24 11/15/2007 11:24:46 [id number] [facility] Techn[facility] Radiology , [address] [place] [address] 11/15/2007 00:00:00 04/01/2008 02:02:29 [id number] Meredith Uribe NP , [facility] [place] [address] [place] [address] 1 01/27/2008 13:39:41 04/01/2008 02:02:29 [id number] [facility] - [address] [place] [address] 02/11/2008 07:52:04 02/11/2008 07:52:08 [id number] [facility] Y Technologi st Radiology , [address] [place] [address] 02/19/2008 14:54:39 02/19/2008 15:26:44 [id number] [facility] BONE DENSITY Radiology , [address] [place] [address] 03/19/2008 08:19:18 03/19/2008 13:32:07 [id number] Rafael Patiño III, MD FP, [facility] [place]ICE [address] [place] [address] 1 05/26/2008 11:06:11 05/27/2008 09:00:24 [id number] Meredith Uribe NP FP, [facility] [address] [address] [place] [address] 1 07/29/2008 08:30:14 07/30/2008 08:08:39 [id number] [facility] Y Technolog[facility] st Radiology , [address] [place] [address] 09/01/2008 08:19:41 09/03/2008 10:34:49 [id number] ANTON Nayak, [facility] OFFICE [address] [place] [address] DR [place]IAC[place] [address] 1 09/25/2008 11:52:26 09/29/2008 16:21:47 [id number] ANTON Nayak, [facility] OFFICE [address] [place] [address] 1 10/15/2008 08:28:42 10/21/2008 08:29:02 [id number] [facility] RADIOLOGY Technologi st Radiology , [address] [place] [address] 1 10/15/2008 08:50:26 10/23/2008 10:03:59 [id number] [facility] - [address] [place] [address] 1 09/10/2008 08:35:43 09/10/2008 08:35:46 [id number] ANTON Nayak, [facility] OFFICE [address] [place] [address] [place] [address] 1 02/01/2009 09:05:06 02/01/2009 14:31:40 [id number] ANTON Nayak, [facility] OFFICE [address] [place] [address] DR COON[place]ina [place] [address] 05/11/2009 14:52:22 05/11/2009 16:49:31 [id number] Meredith Uribe NP FP, [facility] OFFICE [address] [place] [address] DR [place]ON[place]ina [place] [address] 08/02/2009 08:37:11 08/02/2009 10:53:44 [id number] [facility] Y Technologi st Radiology , [address] [place] [address] 09/14/2009 08:40:43 09/15/2009 10:43:40 [id number] [facility] Y Technolog[facility] st Radiology , [address] [place] [address] 09/23/2009 13:47:04 09/24/2009 11:00:24 [id number] Meredith Uribe NP FP, [facility] OFFICE [address] [place] [address] 02/23/2010 08:46:52 02/23/2010 11:47:25 [id number] [facility] Y Technologi st Radiology , [facility] [address] [place] [address] 03/22/2010 08:14:23 03/24/2010 10:36:38 [id number] Meredith Uribe NP FP, [facility] OFFICE [address] [place], [place] [address] 03/22/2010 08:15:38 03/22/2010 11:51:50 [id number] Meredith Uribe NP FP, [facility] OFFICE [address] [place] [address] 1 09/20/2010 08:09:37 09/20/2010 17:24:29 [id number] [facility] FP, [facility] OFFICE [address] [place] [address] 01/17/2011 15:43:36 01/17/2011 15:49:26 [id number] Meredith Uribe NP , [facility] OFFICE [address] [place], [place] [address] 03/20/2011 08:02:32 03/21/2011 15:13:20 [id number] Rafael Patiño III, MD , [facility] OFFICE [address] [place] [address] DR [place]ina [place] [address] 1 09/22/2011 10:26:54 09/22/2011 11:31:50 [id number] Rafael Patiño III, MD , [facility] OFFICE [address] [place] [address] [place] [address] 11/24/2011 14:39:12 11/24/2011 15:27:56 [id number] Romain Preciado MD Radiology , [facility] [address] [place] [address] 11/24/2011 15:32:53 11/29/2011 08:03:24 [id number] Rafael Patiño III, MD , [facility] OFFICE [address] [place] [address] 1 03/25/2012 08:11:32 03/25/2012 09:01:48 [id number] Rafael Patiño III, MD , [facility] OFFICE [address] [place] [address] 10/16/2012 09:04:01 10/16/2012 09:34:33 [id number] Rafael Patiño III, MD , [facility] [place]ICE [address] [place] [address] 1 12/17/2012 07:56:22 12/17/2012 08:31:43 Influenza vaccine needed [id number] Right lowe r quadrant pain [id number] Rafael Patiño III, MD , [facility] [place] [address] [place] [address] 1 04/04/2013 08:18:10 04/04/2013 09:13:14 Adult health examination [id number] see Risk Assessment and Lifestyle Change Counseling section above Benign ess ential hypertension [id number] Blood pressure at goal Mixed hyperlipidemia [id number] Cholestero l is at goal Continue to work on diet and exercise as discussed [id number] Rafael Patiño III, MD , [facility] [place]ICE [address] [place] [address] 1 10/07/2013 08:14:04 10/07/2013 08:59:15 Benign essential hypertension [id number] Blood pressure at goal Mixed hyperlipidemia [id number] Cholestero l is at goal Continue to work on diet and exercise as discussed Right lowe r quadrant pain [id number] Meredith Uribe NP , [facility] [place]ICE [address] [place] [address] 1 04/28/2014 08:11:11 04/28/2014 09:07:56 Benign essential hypertension [id number] Blood pressure at goal Mixed hyperlipidemia [id number] Cholestero l is at goal Continue to work on diet and exercise as discussed Adult heal th examination [id number] see Risk Assessment and Lifestyle Change Counseling section above Screening for malignant neoplasm of cervix 747220157 Right lowe r quadrant pain 795216009 [id number] Milena Perez D.O. 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 , [facility] [place] [address] [place] [address] 01/01/2015 10:04:39 01/01/2015 10:08:41 Active or passive immunization 462677005 Z23 [id number] Meredith Uribe, ANTON , [facility] [place] [address] [place] [address] 05/07/2015 10:13:11 05/07/2015 11:10:40 Mixed hyperlipidemia 491174845 E78.2 Cholestero l is at goal Continue to work on diet and exercise as discussed Benign ess ential hypertension 6079119 I10 Blood pressure at goal Impaired f asting glycemia 788918888 R73.01 Adult heal th examination 814611660 Z00.00 see Risk Assessment and Lifestyle Change Counseling section above Screening for malignant neoplasm of colon 137973750 Z12.11 Referral for a DIRECT booked colonoscop y. This patient is a healthy ASA Class 1 or 2 patient (only mild systemic disease), or a STABLE, well controlled insulin dependent diabetic. They do not have serious cardiac disease ie HI/angiopl asty within 1 year, symptomati c CHF; renal failure with CKD 4 or 5; take Coumadin, Plavix, Aggrenox, etc; nor take chronic narcotics. [Patients who take chronic narcotics should be referred to [facility] for a propofol procedure due to possible inability to sedate adequately with conscious sedation.] Family his tory of malignant neoplasm of ovary 962444291 Z80.41 Family his tory of breast cancer 276007331 Z80.3 [id number] Marshall Back MD ASP, [facility] [address] [place] [address] 08/24/2015 08:32:24 08/24/2015 13:32:47 [id number] Milena Perez D.O. [facility], OFFICE [address] [place] [address] 12/03/2015 08:08:39 12/03/2015 08:40:40 Benign essential hypertension 6672752 I10 Blood pressure at goal Mixed hyperlipidemia 267 421347 E78.2 Cholestero l is slightly above goal at 136. Maribell wanted to work on diet and exercise and revisit the need to increase Lovastatin dose at her next visit. Active or passive immunization 730719840 Z23 Impaired f asting glycemia 760320126 R73.01 Continue to work on diet and exercise. Pain of hip region 25978 002 M25.559 Discussed. No interventi on at this time. [id number] Milena BUTT, [facility] [place] [address] [place] [address] 08/04/2016 10:10:49 08/04/2016 10:56:02 Adult health examination 725623104 Z00.00 see Risk Assessment and Lifestyle Change Counseling section above Benign ess ential hypertension 4794951 I10 Mixed hyperlipidemia 267 672275 E78.2 Impaired f asting glycemia 910475241 R73.01 Continue to work on diet and exercise. Family his tory of breast cancer 059986970 Z80.3 Followed with mammograms at [facility]. Family his tory of cancer of colon 598221750 Z80.0 Colonoscop y 2015, f/u 5 years. [id number] Milena Perez D.O. [facility], OFFICE [address] [place] [address] 11/30/2016 10:42:41 11/30/2016 13:20:58 Active or passive immunization 287365706 Z23 [id number] Milena Perez D.O. , [facility] [place] [address] [place] [address] 12/14/2016 10:22:50 12/14/2016 12:28:17 Knee pain 96131597 M25.561 injury to R knee 48hourssli pped on sail boatER visit- xray negative? of meniscal injury, colateral ligamentre ferred to Injury Clinic at [facility] Ortho [id number] Milena Perez D.O. [facility], OFFICE [address] [place] [address] 02/06/2017 09:01:57 02/06/2017 09:43:42 Benign essential hypertension 6206364 I10 Blood pressure at goal Mixed hyperlipidemia 267 228442 E78.2 Cholestero l is at goal Continue to work on diet and exercise as discussed Impaired f asting glycemia 737102699 R73.01 Continue to work on diet and exercise. Tear of me niscus of knee 667447917 S83.206D [id number] Milena Perez D.O. [facility], OFFICE [address] [place] [address] 06/11/2017 09:16:57 06/11/2017 09:56:55 Right lower quadrant pain 534127680 R10.31 [id number] Milena Perez D.O. [facility], OFFICE [address] [place] [address] 08/17/2017 08:15:46 08/17/2017 10:08:36 Adult health examination 494536322 Z00.00 see Risk Assessment and Lifestyle Change Counseling section above Depression screening 171 052650 Z13.89 depression screening tool administer ed, entered into emr, scored and discussed, time greater than 7.5 minutes Mixed hyperlipidemia 267 281960 E78.2 Cholestero l is at goal Continue to work on diet and exercise as discussed Benign ess ential hypertension 2098417 I10 Blood pressure at goal Family his tory of breast cancer 592970278 Z80.3 Followed with mammograms at [facility]. Family his tory of cancer of colon 640830850 Z80.0 Colonoscop y 2015, f/u 5 years. Pain in right knee 96861 49010 44894 M25.561 Screening for malignant neoplasm of cervix 779163284 Z12.4 [id number] Milena Perez D.O. , [facility] [place] [address] [place] [address] 11/30/2017 13:26:28 11/30/2017 13:44:44 Active or passive immunization 265921013 Z23 [id number] Milena Perez D.O. [facility], OFFICE [address] [place] [address] 02/15/2018 08:53:47 02/15/2018 09:29:10 Mixed hyperlipidemia 641961084 E78.2 Cholestero l is at goal Continue to work on diet and exercise as discussed Benign ess ential hypertension 3592561 I10 Blood pressure at goal Blood pressure NOT at goal. [id number] Milena Perez D.O. [facility], OFFICE [address] [place] [address] 11/29/2018 09:24:46 11/29/2018 10:35:49 Adult health examination 014027172 Z00.00 see Risk Assessment and Lifestyle Change Counseling section above Depression screening 171 396802 Z13.89 depression screening tool administer ed, entered into emr, scored and discussed, time greater than 7.5 minutes Mixed hyperlipidemia 267 318394 E78.2 Cholestero l is at goal Continue to work on diet and exercise as discussed Benign ess ential hypertension 3581342 I10 Blood pressure at goal Blood pressure NOT at goal. Family his tory of cancer of colon 043300561 Z80.0 Colonoscop y 2015, f/u 5 years. Impaired f asting glycemia 180590843 R73.01 Continue to work on diet and exercise. Family his tory of breast cancer 303629077 Z80.3 Followed with mammograms at [facility]. Active or passive immunization 837209476 Z23 Right lowe r quadrant pain 288772207 R10.31 [id number] Jackeline BUTT, [facility] [place] [address] [place] [address] 06/16/2019 07:58:15 06/17/2019 15:26:21 Essential hypertension 20591361 I10 Blood pressure at home has been below 140/90. Continue same. Ordered labs before next visit. Mixed hyperlipidemia 267 927263 E78.2 On statin therapy, LDL below 130. Continue same. Fasting labs with blood sugar before next visit. Impaired f asting glycemia 082801568 R73.01 Her older brother had diabetes, not sure about family history in older generation . Diet reviewed. Check fasting sugar and hemoglobin A1c before next visit. Gastroesop hageal reflux disease 982214999 K21.9 Symptoms controlled with omeprazole . Continue same. Due for another endoscopy later this year. [id number] Jackeline Spivey . , [facility] [place] [address] [place] [address] 12/01/2019 09:44:46 12/03/2019 15:40:20 Vesicular eczema of hand 560832914 L30.8 Dyshidroti c eczema. Patient to minimize exposure to water, use a regular moisturize r frequently , wear gloves when cleaning and washing dishes. Will provide moderate potency topical steroid and dermatolog y consult.di shidrotic eczema Benign ess ential hypertension 5175397 I10 at target below 140/90. continue same. Mixed hyperlipidemia 267 015183 E78.2 On statin therapy, LDL below 130. Continue same. Fasting labs with blood sugar before next visit. Impaired f asting glycemia 509670439 R73.01 Her older brother had diabetes, not sure about family history in older generation . Diet reviewed. Check fasting sugar and hemoglobin A1c before next visit. Gastroesop hageal reflux disease 347753666 K21.9 Symptoms controlled with omeprazole . Continue same. Due for another endoscopy later this year. [id number] Jackeline Spivey . , [facility] [place] [address] [place] [address] 01/21/2020 08:50:43 01/21/2020 14:50:52 Blood in urine 91553251 R31.9 Call office if you develop new or concerning symptoms.P atient has negative PAP in 2018Patien t had US in 2019, repeat in 3-6 months Urinary tr act infectious disease 00710407 N39.0 Finish all antibiotic s as prescribed below, drink plenty of fluids and f/u if you develop new or concerning symptoms or symptoms not improving over the next 2-3 days. . Large ovary 24501489 N83 .8 Repeat US of ovary. [id number] Jackeline Mendez MD , [facility] [address] [place] [address] 07/29/2020 08:54:41 07/29/2020 10:02:48 Adult health examination 427909816 Z00.00 USPSTF guidelines reviewed and discussed with patient. Colonoscop y and mammograph y up to date. Vaccinatio ns up to date except for recombinan t shingles vaccine. Health care proxy in place. Counseling 273346163 Z71 .9 including cardiovasc ular risk reduction counseling . No aspirin indicated. Will change statin to a more potent one, see below. Depression screening 171 553507 Z13.31 depression screening tool administer ed, entered into emr, scored and discussed, time greater than 7.5 minutes. Negative screening. Screening for alcohol abuse 831293627 Z13.39 negative screening. Essential hypertension 82282368 I10 BP at target below 130/80. continue same. Mixed hyperlipidemia 267 837037 E78.2 Cholestero l is not at goal, switch to atorvastat in to lower LDL and cardiovasc ular risk further.. Continue to work on diet and exercise as discussed Vesicular eczema of hand 091454943 L30.8 Dyshidroti c eczema. Patient to minimize exposure to water, use a regular moisturize r frequently , wear gloves when cleaning and washing dishes. Will provide moderate potency topical steroid. [id number] Marshall Back MD [facility], [facility] [address] [facility] [place] [address] 10/27/2020 06:59:55 10/27/2020 12:32:39 [id number] Jackeline Spivey . , [facility] [place] [address] [place] [address] 01/25/2021 10:01:55 01/25/2021 11:08:54 Essential hypertension 55267531 I10 BP at target below 130/80. continue same. Mixed hyperlipidemia 267 469710 E78.2 Cholestero l is at goalContin ue to work on diet and exercise as discussed Gastroesop hageal reflux disease 140848169 K21.9 Symptoms controlled with omeprazole . Continue same. will have another endoscopy by Dr Back next year. Impaired f asting glycemia 905164111 R73.01 worsening, HgA1c 6.3, prediabete s.discusse d metformin, agreed to start metformin to decrease insulin resistance and preserve pancreatic islet function and delay diagnosis of DM.continu e to minimize alcohol and sweets and cut back on carbs. [id number] Jackeline Spivey . , [facility] [place] [address] [place] [address] 05/02/2021 10:33:44 05/02/2021 11:03:43 Essential hypertension 87088304 I10 BP at target below 130/80. continue same. Impaired f asting glycemia 383452577 R73.01 improving, HgA1c 6.1, prediabete s.continue to minimize alcohol and sweets and cut back on carbs.stay active. Mixed hyperlipidemia 267 479626 E78.2 Cholestero l is at goalContin ue to work on diet and exercise . Gastroesop hageal reflux disease 194179456 K21.9 Symptoms controlled with omeprazole . Dr Back told her to take it less than daily. Family his tory of cancer of colon 618224900 Z80.0 colonoscop y UTD. Vesicular eczema of hand 899083242 L30.8 Dyshidroti c eczema. does well when using gloves for housework, uses topical steroids prn. Family his tory of breast cancer 683991579 Z80.3 mammo UTD. [id number] Jackeline Spivey . MD BUTT, [facility] [place] [address] [place] [address] 08/29/2021 13:53:26 08/29/2021 14:59:11 Adult health examination 610408708 Z00.00 USPSTF guidelines reviewed and discussed with patient. Colonoscop y 10-27-, redo 5 Y, and mammograph y 01-05-21up to date. Vaccinatio ns up to date except we need date of one more recombinan t shingles vaccine. Health care proxy in place. Counseling 845832113 Z71 .9 including cardiovasc ular risk reduction counseling , no asa, is on statin. Depression screening 171 581897 Z13.31 depression screening tool administer ed, entered into emr, scored and discussed, time greater than 7.5 minutes, negative screen. Screening for alcohol abuse 773065448 Z13.39 negative screening. Mixed hyperlipidemia 267 677946 E78.2 Cholestero l is at goalContin ue to work on diet and exercise . Essential hypertension 92045251 I10 BP at target below 130/80. continue same. Gastroesop hageal reflux disease 930995827 K21.9 Symptoms controlled with omeprazole . takes it every 3rd day. Family his tory of cancer of colon 233546434 Z80.0 colonoscop y UTD. every 5 Y. Impaired f asting glycemia 499732266 R73.01 improving, HgA1c 6.0, prediabete s.continue to minimize alcohol and sweets and cut back on carbs.stay active. Vesicular eczema of hand 885933859 L30.8 Dyshidroti c eczema. does well when using gloves for housework, uses topical steroids prn. Family his tory of breast cancer 851464785 Z80.3 mammo UTD. [id number] Aishwarya Siddiqui er, [employer], [facility] [place] [address] [place] [address] 03/08/2022 12:08:50 03/08/2022 12:51:54 Essential hypertension 49879858 I10 Controlled , continue hctz 25 daily and losartan 25 mg daily Mixed hyperlipidemia 267 852712 E78.2 Cholestero julian is at goalContin ue to work on diet and exercise as discussedc ontinue atorvastat in 20 daily Pain of le ft hip joint 2290933901 40042 M25.552 Persistent pain in L hip, worsening w exertionin jection in L hip in past helpful, is wearing off- referral to Ortho for re-evaluat ion and possible corticoste roid injection [id number] Jackeline Spivey . MD BUTT, [facility] [place] [address] [place] [address] 10/05/2022 09:53:47 10/05/2022 14:17:52 Adult health examination 758245222 Z00.00 USPSTF guidelines reviewed and discussed with patient. Colonoscop y 10-27-20, redo 5 Y, and mammograph y fall 2001.up to date. Vaccinatio ns up to date. Health care proxy in place.CV counseling done. Depression screening 171 479156 Z13.31 depression screening tool administer ed, neg Screening for alcohol abuse 771742745 Z13.39 Alcohol use screening tool administer ed, neg Benign ess ential hypertension 4028914 I10 at target below 130/80. continue same. Gastroesop hageal reflux disease 609967706 K21.9 Symptoms controlled with omeprazole . takes it prn. Mixed hyperlipidemia 267 721839 E78.2 Cholestero l is at goal, continue sameContin ue to work on diet and exercise . Family his tory of cancer of colon 146948532 Z80.0 colonoscop y UTD. every 5 Y. Impaired f asting glycemia 411084769 R73.01 worsening. HgA1c 6.3, prediabete s.continue to minimize alcohol and sweets and cut back on carbs.stay active. Osteoarthr itis of joint of hand 46988689 M19.049 may use OTC diclofenac /Voltaren gel. [id number] Jackeline Spivey . MD BUTT, [facility] [address] [place] [address] 04/30/2023 10:33:57 04/30/2023 11:18:32 Benign essential hypertension 4546491 I10 at target at or below 130/80. continue same. at home BP 125/78 range. Mixed hyperlipidemia 267 070859 E78.2 Cholestero l is at goal, continue sameContin ue to work on diet and exercise . Impaired f asting glycemia 871875115 R73.01 improved, HgA1c 6.2, prediabete s.continue to minimize alcohol and sweets and cut back on carbs.stay active. Vesicular eczema of hand 901840623 L30.8 Dyshidroti c eczema. does well when using gloves for housework, uses topical steroids prn.has not needed them for a long while. Gastroesop hageal reflux disease 695325604 K21.9 Symptoms controlled with omeprazole . takes it prn. Osteoarthr itis of finger joint 776233252 M19.049 inflamed right now, to take ibuprofen, take omeprazole with it, may see hand surgeon if no change and wanted a steroid shot. [id number] Jackeline Spivey . , [facility] [place] [address] [place] [address] 10/09/2023 11:17:08 10/09/2023 12:22:33 Benign essential hypertension 6941409 I10 at target at or below 130/80. continue same. at home BP 125/78-130 /80 range. Family his tory of breast cancer 487885275 Z80.3 mammo UTD. ordered for Jan. Family his tory of cancer of colon 786119390 Z80.0 had polyps. colonoscop y UTD. every 5 Y. Gastroesop hageal reflux disease 486065776 K21.9 Symptoms controlled with omeprazole . takes it prn. Impaired f asting glycemia 787583307 R73.01 improved, HgA1c 6.1, prediabete s.continue to minimize alcohol and sweets and cut back on carbs.stay active. Mixed hyperlipidemia 267 209488 E78.2 Cholestero l is at goal, continue sameContin ue to work on diet and exercise . Vesicular eczema of hand 801798986 L30.8 Dyshidroti c eczema. does well when using gloves for housework, uses topical steroids prn. Adult heal th examination 935003263 Z00.00 USPSTF guidelines reviewed and discussed with patient. Colonoscop y 10-27-20, redo 5 Y, and mammograph y fall 2022, has one scheduled at [facility] [place] for 2023. Vaccinatio ns up to date. Health care proxy in place.CV counseling done. on statin, no asa indicated. Depression screening 171 143862 Z13.31 depression screening tool administer ed, negative Screening for alcohol abuse 809667842 Z13.39 Alcohol use screening tool administer ed, negative Pain of to e of left foot 4017145412 32462 M79.675 pain over dorsal aspect of MTP joints, ? neuroma, to see ortho. Lesion of oral mucosa 10 47785263 359494 K13.70 nodule in mucosa under upper lip, will refer to oral surgeon for evaluation , states it gets larger at times and causes pain. [id number] Jackeline Spivey . , [facility] [place] [address] [place] [address] 01/10/2024 10:52:21 01/10/2024 11:50:49 Lesion of oral mucosa 9438737940 768174 K13.70 nodule in mucosa under upper lip, ? mucocele? she will return to oral surgeon to discuss her concerns, but advised her excisional biopsy is a good idea. [id number] CHIP ACOSTA MD , [facility] [address] [place] [address] 04/21/2024 09:57:26 2024 14:20:46 Benign essential hypertension 1998351 I10 At goal <130/80, continue current regimen. Gastroesop hageal reflux disease 540135861 K21.9 Continue omprazole. Impaired f asting glycemia 638865213 R73.01 A1c 6.4%. Recommend increasing to 1000 mg ER - if tolerated will send new rx. Mixed hyperlipidemia 267 846335 E78.2 At goal, continue statin. Generalize d osteoarthritis 174378103 M15.1 Would like to see specialist regarding arthritis. Family his tory of breast cancer 164203654 Z80.3 Goes to [facility]. Has had one benign mass removed. [...] MEDICARE [place]: [employer] Maribell Colby [id number] 2 Maribell Colby 10/05/2022 2 [facility] - MEDICARE ENHANCE (INDEMNITY PLAN) Maribell Colby [id number] Maribell Colby 04/30/2023 1 MEDICARE [place]: [facility] Maribell Colby [id number] Maribell Colby 04/30/2023 2 [facility] - MEDICARE ENHANCE (INDEMNITY PLAN) Maribell Colby [id number] Maribell Colby 10/09/2023 1 MEDICARE B-[place]: [facility] Maribell Colby [id number] Maribell Colby 10/09/2023 2 [facility] - MEDICARE ENHANCE (INDEMNITY PLAN) Maribell Colby [id number] Maribell Colby 01/10/2024 1 MEDIC[place]: [employer] Maribell Colby [id number] 2 Maribell Colby 01/10/2024 2 [facility] - MEDICARE ENHANCE (INDEMNITY PLAN) Maribell Colby [id number] Maribell Colby 04/21/2024 1 MEDICARE B-[place]: [facility] Maribell Colby [id number] 2 Maribell Colby 04/21/2024 2 [facility] - MEDICARE ENHANCE (INDEMNITY PLAN) Maribell Colby [id number] Maribell Colby Notes Date Note Type [...] ischemic heart disease; No peripheral vascular disease (50527); No diabetes; No carotid artery stenosis Associated [...] GFR.On statin.GERD controlled with omeprazole. Jackeline Spivey. [address] [place] [address], [phone], [facility] 10/05/2022 10:51:06 4 text/html VMG HyperlipidemiaReported bypatient.Duration:chronic Control:well controlled; LDL has been 100-130, goal is <100; treated with medications; Patient understands medications are to lower cholesterol Compliance:compliant with medications; compliant with follow-up visits; compliant with diet Barriers to CareNo identified barriers to care Context:Nonsmoker; No ischemic heart disease; No peripheral vascular disease (79044); No diabetes; No carotid artery stenosis Associated [...] 0.8, GFR >60, HgA1c 6.2. Jackeline Spivey. [address] [place] [address], [phone], [facility] 04/30/2023 11:03:30 4 text/html Risk Assessment and [...] past 12 months has the electric, gas, oi or water company threatened to shut off services?no How hard [...] ischemic heart disease; No peripheral vascular disease (30589); No diabetes; No carotid artery stenosis Associated [...] 98.6,On statin.GERD controlled with omeprazole. Jackeline Spivey. [address] [place] [address], [phone], [facility] 10/09/2023 12:11:50 4 text/html nodule under upper lip, referred to oral surgeon when seen over the summer. Told she needs surgery for biopsy.States she felt the visit was perfunctory and wishes to discuss it. Jackeline Spivey. [address] [place] [address], [phone], [facility] 01/10/2024 11:48:54 5 text/html Patient with history of hypertension, hyperlipidemia, impaired fasting glucose, hand eczema and acid reflux presents for med management. HTN: losartan 25 mg. Pre-diabetes: last A1c was 6.4%. Metformin 500 mg ER and statin. OA: hands, hip injection with cortisone. Feet, uses orthotic. Sees agricultural extension specialist over at [facility] in [place]. Dr. Tineo. GERD: takes omeprazole three times a week. CHIP ACOSTA MD [address] [place] [address], [phone], [facility] 04/21/2024 17:57:59 OBGyn Episode No OBEpisode recorded.
== END 2024-07-15 10:20 | disposition home or self-care (01) ==
LOC: HO.HAP 10:19
PROVIDERS: Visit Provider Family Medicine
DX: Z46.1 Encounter for fitting and adjustment of hearing aid (principal); H90.3 Sensorineural hearing loss, bilateral
CPT/HCPCS: 92590

== ENCOUNTER 2024-07-23 14:41 | Outpatient (REF) | payer SELFPAY ==
--- OUTSIDE RECORDS SUMMARY | 2024-07-23 14:44 | XMS_ITS | Data Portability ---
Author Organization [facility], [facility] Address [address] [place] [address] Care Team Providers Care Editorial Project Manager Name Role Phone CHIP ACOSTA Primary Care Provider [phone] Assessment Encounter Date Assessment Date Assessment LastModified [...] Organization Details Last Modified Time Details Appointments Wellne Visit 30 2024 10:30A Jessi ACOSTA MD Not available Not available Not available Lab HbA1c (hemog lobin A1c), blood 2023 024 [facility], [address] [place] [address], [address], 10/02/2023 14:29:48 BMP, serum or plasma 2023 024 [facility], [address] [place] [address], [address], 10/04/2023 12:15:00 HbA1c (hemog lobin A1c), blood 2022 024 [facility], [address] [place] [address], [address], 04/26/2023 12:28:00 BMP, serum or plasma 2022 024 [facility], [address] [place] [address], [address], 04/26/2023 14:13:00 Referral hand surgeo n referr al 2024 025 [email or web address] Agatha Redd MD, [address] [place] [address], [address], 07/22/2024 09:43:13 oral & maxill ofacia l surgeo n referr al 2023 024 [email or web address] [facility], [address] [place] [address], [place], [address], 10/09/2023 12:24:14 orthop edic chado n referr al 2023 024 [facility], [address] [place] [address], [address], 10/18/2023 09:25:37 Procedures None record ed. Surgeries None record ed. Imaging None record ed. Medication Orders atorva statin 20 mg tablet 2024 025 [id number], [address] [place], [address], 04/21/2024 10:25:46 Patient TargetsNo targets recorded. Patient Instructions Encounter Date Encounter Id Patient Instructions Last Modified By Organization Details Last Modified Time 10/05/2022 [id number] advance directives: care instructions [email or web address] Not available 10/05/2022 10:49:15 preventing falls: care instructions [email or web address] Not available 10/05/2022 10:49:14 hearing loss: care instructions nshoushtari Not available 10/05/2022 10:49:14 well visit, over 65: care instructions [email or web address] Not available 10/05/2022 10:49:14 04/30/2023 [id number] I serve as the focal point for [...] Ge neralized osteoarthritis Referring Physician: Chip Acosta [facility] Medicine, Encounter Date: 04/21/2024 Results Created Date [...] furth er confi rmati on Not Available [facility] [address], [place], [address], 09/25/2022 11:46:24 09/26/19 23 09/25/2022 HGB A1C estimated average glucose 134.1 mg/dL Not Available [address], [address], 09/25/2022 11:46:24 09/26/19 23 09/25/2022 BASIC METAB OLIC PANEL glucose 100 mg/dL 70-100 Not Available [address], [address], 09/25/2022 15:24:30 09/26/19 23 09/25/2022 BASIC METAB OLIC PANEL BUN 26 mg/dL 7-18 high Not Available [address], [address], 09/25/2022 15:24:30 09/26/19 23 09/25/2022 BASIC METAB OLIC PANEL creatinine 0.7 mg/dL 0.8-1. 3 low Not Available [address], [address], 09/25/2022 15:24:30 09/26/19 23 09/25/2022 BASIC METAB OLIC PANEL B/C 37.1 ratio Not Available [address], [address], 09/25/2022 15:24:30 09/26/19 23 09/25/2022 BASIC METAB [...] EPI) Equat ion (Allison castillo et. al 2021) as recom luisana d by the Natio nal Kid[facility] y [facility] ation . eGFR is based on age, serum creat inine , and sex. CKD-E PI does not calcu late eGFR by race, does not apply to child jen (age <18 years ), and altheaul d not be used in pregn cheryl. Not Available [address], [address], 09/25/2022 15:24:30 09/26/19 23 09/25/2022 BASIC METAB OLIC PANEL sodium 140 mmol/ L 136-14 5 Not Available [address], [address], 09/25/2022 15:24:30 09/26/19 23 09/25/2022 BASIC METAB OLIC PANEL potassium 4.1 mmol/ L 3.5-5. 1 Not Available [address], [address], 09/25/2022 15:24:30 09/26/19 23 09/25/2022 BASIC METAB OLIC PANEL chloride 102 mmol/ L 96-107 Not Available [address], [address], 09/25/2022 15:24:30 09/26/19 23 09/25/2022 BASIC METAB OLIC PANEL anion gap 11.1 5.0-15 .0 Not Available [address], [address], 09/25/2022 15:24:30 09/26/19 23 09/25/2022 BASIC METAB OLIC PANEL CO2 27 mmol/ L 21-32 Not Available [address], [address], 09/25/2022 15:24:30 09/26/19 23 09/25/2022 BASIC METAB OLIC PANEL calcium 9.5 mg/dL 8.5-10 .3 Not Available [address], [address], 09/25/2022 15:24:30 09/26/19 23 09/25/2022 LIPID PANEL cholesterol 186 mg/dL <200 mg/dl Lucie able 200-2 39 mg/dl Borde rline High >240 mg/dl High Not Available [address], [address], 09/25/2022 15:24:31 09/26/19 23 09/25/2022 LIPID PANEL triglyceride s 177 mg/dL <150 mg/dL Ava l 150-1 99 mg/dL Borde rline High 200-4 99 mg/dL High >500 mg/dL Very High Not Available [address], [address], 09/25/2022 15:24:31 09/26/19 23 09/25/2022 LIPID PANEL direct HDL 50 mg/dL <40 mg/dl - Major Risk for CHD >60 mg/dl - Negat donna Risk for CHD Not Available [address], [address], 09/25/2022 15:24:31 09/26/19 23 09/25/2022 LDL - [...] r is not neces leny. Not Available [address], [address], 09/25/2022 15:24:32 04/26/19 24 04/26/2023 HGB A1C [...] furth er confi rmati on Not Available [address], [address], 04/26/2023 12:28:00 04/26/19 24 04/26/2023 HGB A1C estimated average glucose 131.2 mg/dL Not Available [address], [address], 04/26/2023 12:28:00 04/26/19 24 04/26/2023 BASIC METAB OLIC PANEL glucose 108 mg/dL 70-100 high Not Available [address], [address], 04/26/2023 14:13:00 04/26/19 24 04/26/2023 BASIC METAB OLIC PANEL BUN 21 mg/dL 7-18 high Not Available [address], [address], 04/26/2023 14:13:00 04/26/19 24 04/26/2023 BASIC METAB OLIC PANEL creatinine 0.8 mg/dL 0.8-1. 3 Not Available [address], [address], 04/26/2023 14:13:00 04/26/19 24 04/26/2023 BASIC METAB OLIC PANEL B/C 26.3 ratio Not Available [address], [address], 04/26/2023 14:13:00 04/26/19 24 04/26/2023 BASIC METAB [...] be used in pregn cheryl. Not Available [address], [address], 04/26/2023 14:13:00 04/26/19 24 04/26/2023 BASIC METAB OLIC PANEL sodium 142 mmol/ L 136-14 5 Not Available [address], [address], 04/26/2023 14:13:00 04/26/19 24 04/26/2023 BASIC METAB OLIC PANEL potassium 4.2 mmol/ L 3.5-5. 1 Not Available [address], [address], 04/26/2023 14:13:00 04/26/19 24 04/26/2023 BASIC METAB OLIC PANEL chloride 101 mmol/ L 96-107 Not Available [address], [address], 04/26/2023 14:13:00 04/26/19 24 04/26/2023 BASIC METAB OLIC PANEL anion gap 11.4 5.0-15 .0 Not Available [address], [address], 04/26/2023 14:13:00 04/26/19 24 04/26/2023 BASIC METAB OLIC PANEL CO2 30 mmol/ L 21-32 Not Available [address], [address], 04/26/2023 14:13:00 04/26/19 24 04/26/2023 BASIC METAB OLIC PANEL calcium 9.9 mg/dL 8.5-10 .3 Not Available [address], [address], 04/26/2023 14:13:00 04/26/19 24 04/26/2023 LIPID PANEL cholesterol 196 mg/dL <200 mg/dl Lucie able 200-2 39 mg/dl Borde rline High >240 mg/dl High Not Available [address], [address], 04/26/2023 14:13:01 04/26/19 24 04/26/2023 LIPID PANEL triglyceride s 212 mg/dL <150 mg/dL Ava l 150-1 99 mg/dL Borde rline High 200-4 99 mg/dL High >500 mg/dL Very High Not Available [address], [address], 04/26/2023 14:13:01 04/26/19 24 04/26/2023 LIPID PANEL direct HDL 55 mg/dL <40 mg/dl - Major Risk for CHD >60 mg/dl - Negat donna Risk for CHD Not Available [address], [address], 04/26/2023 14:13:01 04/26/19 24 04/26/2023 LDL - [...] r is not monica michele. Not Available [address], [address], 04/26/2023 14:13:02 10/02/19 24 10/02/2023 HGB A1C [...] furth er confi rmati on Not Available [address], [address], 10/02/2023 14:29:47 10/02/19 24 10/02/2023 HGB A1C estimated average glucose 128.4 mg/dL Not Available [address], [address], 10/02/2023 14:29:47 10/02/19 24 10/04/2023 BASIC METAB OLIC PANEL glucose 94 mg/dL 70-100 Not Available [address], [address], 10/04/2023 12:15:00 10/02/19 24 10/04/2023 BASIC METAB OLIC PANEL BUN 19 mg/dL 7-18 high Not Available [address], [address], 10/04/2023 12:15:00 10/02/19 24 10/04/2023 BASIC METAB OLIC PANEL creatinine 0.8 mg/dL 0.8-1. 3 Not Available [address], [address], 10/04/2023 12:15:00 10/02/19 24 10/04/2023 BASIC METAB OLIC PANEL B/C 23.8 ratio Not Available [address], [address], 10/04/2023 12:15:00 10/02/19 24 10/04/2023 BASIC METAB [...] be used in pregn cheryl. Not Available [address], [address], 10/04/2023 12:15:00 10/02/19 24 10/04/2023 BASIC METAB OLIC PANEL sodium 141 mmol/ L 136-14 5 Not Available [address], [address], 10/04/2023 12:15:00 10/02/19 24 10/04/2023 BASIC METAB OLIC PANEL potassium 4.1 mmol/ L 3.5-5. 1 Not Available [address], [address], 10/04/2023 12:15:00 10/02/19 24 10/04/2023 BASIC METAB OLIC PANEL chloride 103 mmol/ L 96-107 Not Available [address], [address], 10/04/2023 12:15:00 10/02/19 24 10/04/2023 BASIC METAB OLIC PANEL anion gap 10.0 5.0-15 .0 Not Available [address], [address], 10/04/2023 12:15:00 10/02/19 24 10/04/2023 BASIC METAB OLIC PANEL CO2 28 mmol/ L 21-32 Not Available [address], [address], 10/04/2023 12:15:00 10/02/19 24 10/04/2023 BASIC METAB OLIC PANEL calcium 9.3 mg/dL 8.5-10 .3 Not Available [address], [address], 10/04/2023 12:15:00 04/18/19 25 04/18/2024 HGB A1C [...] furth er confi rmati on Not Available [address], [address], 04/18/2024 12:20:20 04/18/19 25 04/18/2024 HGB A1C estimated average glucose 137.0 mg/dL Not Available [address], [address], 04/18/2024 12:20:20 04/18/19 25 04/18/2024 BASIC METAB OLIC PANEL glucose 99 mg/dL 70-100 Not Available [address], [address], 04/18/2024 13:54:33 04/18/19 25 04/18/2024 BASIC METAB OLIC PANEL BUN 18 mg/dL 7-18 Not Available [address], [address], 04/18/2024 13:54:33 04/18/1904/18/2024 BASIC METAB OLIC PANEL creatinine 0.8 mg/dL 0.8-1. 3 Not Available [address], [address], 04/18/2024 13:54:33 04/18/19 25 04/18/2024 BASIC METAB OLIC PANEL B/C 22.5 ratio Not Available [address], [address], 04/18/2024 13:54:33 04/18/1904/18/2024 BASIC METAB OLIC PANEL GFR >=60ML /MIN [...] be used in pregn cheryl. Not Available [address], [address], 04/18/2024 13:54:33 04/18/1904/18/2024 BASIC METAB OLIC PANEL sodium 142 mmol/ L 136-14 5 Not Available [address], [address], 04/18/2024 13:54:33 04/18/19 25 04/18/2024 BASIC METAB OLIC PANEL potassium 4.4 mmol/ L 3.5-5. 1 Not Available [address], [address], 04/18/2024 13:54:33 04/18/1904/18/2024 BASIC METAB OLIC PANEL chloride 101 mmol/ L 96-107 Not Available [address], [address], 04/18/2024 13:54:33 04/18/19 25 04/18/2024 BASIC METAB OLIC PANEL anion gap 11.4 5.0-15 .0 Not Available [address], [address], 04/18/2024 13:54:33 04/18/19 25 04/18/2024 BASIC METAB OLIC PANEL CO2 30 mmol/ L 21-32 Not Available [address], [address], 04/18/2024 13:54:33 04/18/19 25 04/18/2024 BASIC METAB OLIC PANEL calcium 10.0 mg/dL 8.5-10 .3 Not Available [address], [address], 04/18/2024 13:54:33 04/18/19 25 04/18/2024 LIPID PANEL cholesterol 176 mg/dL <200 mg/dl Lucie able 200-2 39 mg/dl Borde rline High >240 mg/dl High Not Available [address], [address], 04/18/2024 13:54:34 04/18/19 25 04/18/2024 LIPID PANEL triglyceride s 225 mg/dL <150 mg/dL Ava l 150-1 99 mg/dL Borde rline High 200-4 99 mg/dL High >500 mg/dL Very High Not Available [address], [address], 04/18/2024 13:54:34 02/07/04/18/2024 LIPID PANEL direct HDL 52 mg/dL <40 mg/dl - Major Risk for CHD >60 mg/dl - Negat donna Risk for CHD Not Available [address], [address], 04/18/2024 13:54:34 04/18/19 25 04/18/2024 LDL - [...] r is not neces leny. Not Available [address], [address], 04/18/2024 13:54:35 01/18/20 23 01/16/2023 MAMMO , [...] Family history of malignant neoplasm of ovary 035328385 Completed 08/04/2016 Meredith Uribe NP [address] [place] [address] Donato Dos Santostika welch [place], [address], [facility] 7 12:41:04 Family history of breast cancer 050844116 Active Meredith Uribe NP [facility] Cheri Smithsofy welch [place], [address], [facility] 6 13:12:12 Family history of cancer of colon 682526133 Active 2016 Meredith Uribe NP [address] [place] [address] Levon Donatotika welch [place], [address], [facility] 7 12:41:19 Gastroesoph ageal reflux disease 849147220 Active 2019 Jackeline broderick MD [address] [place] [address] [place], [address], [facility] 0 09:46:53 Vesicular eczema of hand 443420808 Active 2020 Jackeline broderick MD [address] [place] [address] [place], [address], [facility] 1 09:59:43 Mixed hyperlipide emile 362805908 Active 2003 Meredith Uribe NP [address] [place] [address] [place], [address], [facility] 6 13:12:12 Psychogenic headache 06753222 Completed 200102/01/2009 Meredith Uribe NP [address] [place], [place] [address], [address], [facility] 6 13:07:14 Essential hypertensio n 32570712 Completed 200303/25/2012 Meredith Uribe NP [facility] [place], [address], [facility] 6 13:07:14 Lateral epicondylit is 073158656 Completed 03/25/2012 Meredith Uribe NP [facility] [place], [address], [facility] 6 13:07:15 Palpitation s 28285608 Completed 200403/25/2012 Meredith Uribe NP [address], [place], [address], [facility] 6 13:07:15 Pain of multiple joints 95990438 Completed 03/25/2012 Meredith Uribe NP [address], [place], [address], [facility] 6 13:07:14 Benign essential hypertensio n 3461296 Active 2003 Meredith Uribe NP [address], [place], [address], [facility] 6 13:12:12 Neck pain 82959922 Completed 200703/25/2012 Meredith Uribe NP [address], [place], [address], [facility] 6 13:07:15 Noninflamma tory disorder of the vagina 71206687 Completed 200402/01/2009 Meredith Uribe NP [address], [place], [address], [facility] 6 13:07:15 Dysfunction al uterine bleeding Completed 200403/25/2012 Meredith Uribe NP [address], [place], [address], [facility] 6 13:07:14 Tachycardia 9740871 Completed 200303/25/2012 Meredith Uribe NP [address], [place], [address], [facility] 6 13:07:15 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 39165135 Completed 200702/01/2009 Meredith Uribe NP [address], [place], [address], [facility] 6 13:07:14 Pain of joint 84645976 Completed 200403/25/2012 Meredith Uribe NP [address], [place], [address], [facility] 6 13:07:14 Acute maxillary sinusitis 81529883 Completed 200102/01/2009 Meredith Uribe NP [address] [place], [address], [facility] 6 13:07:14 Elevated blood-press ure reading without diagnosis of hypertensio n 014615874 Completed 200102/01/2009 Meredith Uribe NP [address], [place], [address], [facility] 6 13:07:15 Impaired fasting glycemia 999035096 Active Meredith Uribe NP [address] [place], [address], [facility] 6 13:12:12 Hyperlipide emile 06218045 Completed 200303/25/2012 Meredith Uribe NP [address] [place], [address], [facility] 6 13:07:14 Acute bronchitis 73777872 Completed 03/25/2012 Meredith Uribe NP [address] [place], [address], [facility] 6 13:07:14 Malaise and fatigue 521826265 Completed 200403/25/2012 Meredith Uribe NP [address] [place], [address], [facility] 6 13:07:15 Headache 91250123 Completed 199902/01/2009 Meredith Uribe NP [address] [place], [address], [facility] 6 13:07:15 Viral disease 46033165 Completed 200002/01/2009 Meredith Uribe NP [address] [place], [address], [facility] 6 13:07:14 Sleep disorder 51933209 Completed 03/25/2012 Meredith Uribe NP [address], [address], [facility] 6 13:07:15 Mammography abnormal 535928811 Completed 10/27/2014 Meredith Uribe NP [address] [place], [address], [facility] 6 13:07:15 Congenital anomaly of skin 636894620 Completed 03/25/2012 Meredith Uribe NP [address], [place], [address], [facility] 6 13:07:15 Primary malignant neoplasm of female breast 29329885 Completed 200303/25/2012 Meredith Uribe NP [address], [place], [address], [facility] 6 13:07:14 Menstruatio n finding Completed 200503/25/2012 Meredith Uribe NP [address] [place], [address], [facility] 6 13:07:15 Acute sinusitis 48049052 Completed 03/25/2012 Meredith Uribe NP [address], [place], [address], [facility] 6 13:07:14 Acute sinusitis 45559753 Completed 199902/01/2009 Meredith Uribe NP [address], [place], [address], [facility] 6 13:07:14 Joint pain in ankle and foot Completed 03/25/2012 Meredith Uribe NP [address] [place], [address], [facility] 6 13:07:14 Finding of trunk structure 740015858 Completed 200403/25/2012 Meredith Uribe NP [address] [place], [address], [facility] 6 13:07:15 Breast lump 04891304 Completed 200103/25/2012 Meredith Uribe NP [address] [place], [place] [address]Day[place], [place], [address], [facility] 6 13:07:14 Gastrointes tinal hemorrhage 70224287 Completed 200403/25/2012 Meredith Uribe NP [address] [place], [place] [address]Day[place], [place], [address], [facility] 6 13:07:14 Common cold 10595318 Completed 200002/01/2009 Meredith Uribe NP [address] [place], [place] [address]Day[place], [place], [address], [facility] 6 13:07:14 Mammography abnormal 836362700 Completed 200703/25/2012 Meredith Uribe NP [address] [place], [place] [address]Day[place], [place], [address], [facility] 6 13:07:15 Menopausal symptom 15431628 Completed 200803/25/2012 Meredith Uribe NP [address] [place], [place] [address]Day[place], [place], [address], [facility] 6 13:07:14 Solitary cyst of breast 820198524 Completed 200603/25/2012 Meredith Uribe NP [address] [place], [place] [address]Day[place], [place], [address], [facility] 6 13:07:14 Menopausal and postmenopau markus disorders 144500464 Completed 200702/01/2009 Meredith Uribe NP [address] [place], [place] [address]Day[place], [place], [address], [facility] 6 13:07:14 Problem Notes None recorded. Procedures Surgical History Date Name Laterality Status Provider Name and Address Organization Details Recorded Time 10/09/19 24 Medicare Wellness Visit completed NOLA Morrison [facility] 10/08/2023 09:36:32 10/09/19 24 Cardiovascular disease risk reduction counseling completed NOLA Morrison [facility] 10/08/2023 09:38:03 10/09/19 24 prevention-annual alcohol misuse screening completed Tamiko NOLA Farrell [facility] 10/08/2023 09:38:04 04/30/19 24 [id number] completed Jackeline Spivey. [address] [place] [address], [address], [facility] 04/29/2023 20:10:38 10/06/19 23 Medicare Wellness Visit completed Tamiko NOLA Farrell [facility] 10/02/2022 14:12:12 10/06/19 23 Cardiovascular disease risk reduction counseling completed Tamiko NOLA Farrell [facility] 10/02/2022 14:12:58 10/06/19 23 prevention-annual alcohol misuse screening completed Tamiko DOMINIKAlethea Farrell [facility] 10/02/2022 14:13:02 08/30/19 22 Medicare Wellness Visit completed Tamiko NOLA Farrell [facility] 08/29/2021 12:05:23 08/30/19 22 Alcohol use screening completed Tamiko ONLA Farrell [facility] 08/29/2021 12:05:23 08/30/19 22 Cardiovascular disease risk reduction counseling completed Tamiko NOLA Farrell [facility] 08/29/2021 12:05:23 10/28/19 21 Tassoni - Colonoscopy completed Marshall Back MD [address] [place] [address], [address], [facility] 10/27/2020 08:11:19 10/28/19 21 colonoscopy completed Jackeline Spivey. [address] [place] [address], [address], [facility] 10/31/2020 16:05:15 07/30/19 21 Medicare Wellness Visit completed Dunia Le [facility] 07/29/2020 09:03:31 07/30/19 21 prevention-cardiov ascular risk reduction counseling completed Dunia Le [facility] 07/29/2020 09:03:31 07/30/19 21 prevention-annual alcohol misuse screening completed Dunia Le [facility] 07/29/2020 09:03:31 04/02/20 18 POC Urinalysis Testing completed Gloria Hinojosa LPN [facility] 06/11/2017 09:34:32 08/24/19 16 Tassoni - Colonoscopy completed Marshall Back MD [address] [place] [address], [address], [facility] 08/24/2015 11:21:39 08/24/19 16 Tassoni - EGD completed Marshall Back MD [address] [place] [address], [address], [facility] 08/24/2015 10:48:17 10/01/19 05 completed Not Available [facility] 01/26/2011 06:05:52 left oophorectomy completed Mary Grace Spivey. [address] [place] [address], [address], [facility] 02/16/2020 08:11:22 Imaging Results Imaging Date Name [...] Name and Address Organization Details Recorded Time 01630 Substance with sulfonami de structure and antibacte rial mechanism of action (substanc e) medicatio n Not available Not available Not available 02/01/2009 30566 8003 SNOMED BELLS PALSY Betty argueta RN [facility], [facility] 16:24:01 55002 lisinopri l medicatio n cough Not available Not available 02/01/2009 07899 RxNorm Not Available [facility] 06:05:41 aspirin medicatio n abdominal pain Not available Not available 12/14/2016 1191 RxNorm Gloria Waldron MA null, [facility] 7 10:29:58 624909 ibuprofen medicatio n Not available Not available Not available 12/14/2016 5640 RxNorm Jackeline broderick MD [address] [place] [address], [place], [address] , [facility] 4 10:51:49 73533 Bactrim medicatio n Not available Not available Not available 08/02/2009 55722 9 RxNorm BELLS PALSY Betty argueta RN null, [facility] 1 16:23:31 54016 penicilli n G Not available hives Not available Not available 08/02/2009 7980 RxNorm Not Available On license of [facility] 1 06:05:41 Medications Name Sig Start Date [...] Updated DateTime 3 163.83 cm 24 kg/m2 63101.1 2 g 75 /min 100 % 100 % 122 mm[Hg] 80 mm[Hg] NOLA Morrison [facility] 3 10:31:22 Date Recorded Body height Body mass index (BMI) Body weight Heart rate Oxygen saturation Oxygen saturation in Arterial blood by Pulse oximetry Systolic blood pressure Diastolic blood pressure Provider Name and Address Organization Details Last Updated DateTime 4 163.83 cm 24.7 kg/m2 58556.4 9 g 77 /min 99 % 99 % 140 mm[Hg] 80 mm[Hg] NOLA Morrison [facility] 4 10:42:01 Date Recorded Systolic blood pressure Diastolic blood pressure Provider Name and Address Organization Details Last Updated DateTime 04/30/2023 130 mm[Hg] 80 mm[Hg] Jackeline Parker MD [address] [place] [address], [address], [facility] 04/30/2023 10:56:20 Date Recorded Body height Body mass index (BMI) Body weight Heart rate Oxygen saturation Oxygen saturation in Arterial blood by Pulse oximetry Systolic blood pressure Diastolic blood pressure Provider Name and Address Organization Details Last Updated DateTime 4 163.83 cm 23.5 kg/m2 69760.3 4 g 63 /min 99 % 99 % 120 mm[Hg] 80 mm[Hg] NOLA Morrison [facility] 4 11:39:03 Date Recorded Body height Body mass index (BMI) Body weight Heart rate Oxygen saturation Oxygen saturation in Arterial blood by Pulse oximetry Systolic blood pressure Diastolic blood pressure Provider Name and Address Organization Details Last Updated DateTime 4 163.83 cm 24.5 kg/m2 02062.8 9 g 75 /min 99 % 99 % 120 mm[Hg] 70 mm[Hg] NOLA Morrison [facility] 4 11:20:24 Date Recorded Body height Body mass index (BMI) Body weight Heart rate Systolic blood pressure Diastolic blood pressure Provider Name and Address Organization Details Last Updated DateTime 5 163.83 cm 24.8 kg/m2 29896.0 8 g 83 /min 122 mm[Hg] 70 mm[Hg] [facility] 5 10:12:50 Social History Question Answer Notes LastModified by Organizat ion Details LastModified Time Tobacco Smoking Status Never Smoker NOLA [facility] 08/29/2021 14:22:46 Do You Wear A Helmet When Biking? Yes [email or web address] Information not available 05/07/2015 What Is Your Level Of Caffeine Consumption? Occasional Tea Or Diet Soda Occasionally Information not available 04/28/2014 How Much Tobacco Do You Chew? None [email or web address] Information not available 05/07/2015 What Type Of Diet Are You Following? REGULAR Information not available 04/28/2014 Which Illicit Or Recreational Drugs Have You Used? None Information not available 07/29/2020 What Is The Highest Grade Or Level Of School You Have Completed Or The Highest Degree You Have Received? [id number] Information not available 01/25/2021 Have There Been Any Changes To Your Family Or Social Situation? No [email or web address] Information not available 08/29/2021 How Many Days In The Past Year Have You Had A Heavy Drinking Consumption (4+ Female, 5+ Male)? 0 [email or web address] Information not available 10/16/2012 Are There Any Guns Present In Your Home? No [email or web address] Information not available 08/29/2021 Do You Use Insect Repellent Routinely? Yes [email or web address] Information not available 08/29/2021 Live Alone Or [...] Seat Belt Or Car Seat Routinely? Yes [email or web address] Information not available 08/29/2021 Seat Belts Used Routinely Yes Information not available 04/28/2014 Smoke Alarm In Home Yes [email or web address] Information not available 05/07/2015 Do You Have Smoke And Carbon Monoxide Detectors In Your Home? Yes [email or web address] Information not available 08/29/2021 Are You Passively Exposed To Smoke? No [email or web address] Information not available 08/29/2021 How Much Tobacco Do You Smoke? No [email or web address] Information not available 08/29/2021 General Stress Level Low [email or web address] Information not available 05/07/2015 Do You Use Sunscreen Routinely? Yes Information not available 04/28/2014 How Many Years Have You Smoked Tobacco? 0 Information not available 08/29/2021 Sex: Female Functional Status Question Answer Note LastModified by Organization Details LastModified Time Do you use any illicit or recreational drugs? No Information not available 01/25/2021 What is your level of alcohol consumption? Occasional a glass of wine with dinner on weekends Information not available 10/09/2023 Do you or have you ever used smokeless tobacco? Never used smokeless tobacco [email or web address] Information not available 08/29/2021 Are you currently employed? 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 Never used electronic cigarettes [email or web address] Information not available 08/29/2021 What is your exercise level? Occasional walks 3 times a week Information not available 08/29/2021 Mental Status None recorded. Family History Relationship Description Onset Age of this Age Resolved Age Notes LastModified by Organization Details LastModified Time Father Heart disease 72 [email or web address] Not available 05/07 13:07:33 Brother Malignant tumor of colon 74 [email or web address] Not available 07/11 09:38:23 Brother Diabetes mellitus [email or web address] Not available 08/2019 09:27:02 Brother [facility] Not available 07/11 09:38:35 Mother Malignant tumor of breast 63 [email or web address] Not available 07/11 09:37:41 Mother Essential hypertension [facility] Not available 0 07/29/2020 09:38:51 Maternal Grandmother Malignant tumor of breast [facility] Not available 07/11 09:39:08 Maternal Aunt Malignant neoplasm of uterus [facility] Not available 07/11 09:39:55 Notes:Cardiovascular: Family history is remarkable for coronary artery disease and hypertension. mother with HTN, father of CAD at 72; brother NE at 60 Cancer: Family history is remarkable [...] virus, trivalent, preservative 1 completed Not Available [facility] 03/29/2019 02:18:14 DTaP, unspecified formulation 5 completed Not Available On license of [facility] 01/25/2011 05:21:29 influenza, unspecified formulation 8 completed Not Available [facility] 01/25/2011 05:22:13 influenza, unspecified formulation 0 completed Not Available On license of [facility] 01/25/2011 05:22:52 Influenza, split virus, trivalent, PF 3 completed Not Available On license of [facility] 03/29/2019 02:18:58 zoster live 5 completed Not Available On license of [facility] 03/29/2019 02:19:44 Td (adult), 5 Lf tetanus toxoid, preservative free, adsorbed 5 completed Not Available On license of [facility] 03/29/2019 02:19:45 Influenza, split virus, quadrivalent, PF 5 completed Not Available On license of [facility] 03/29/2019 02:19:52 influenza, unspecified formulation 2 completed [place] Zambrano, [facility] 03/25/2012 08:23:22 Influenza, split virus, quadrivalent, PF 6 completed Not Available On license of [facility] 03/29/2019 02:20:42 Influenza, split virus, quadrivalent, PF 7 completed Not Available On license of [facility] 03/29/2019 02:27:42 Influenza, split virus, trivalent, preservative 4 completed Anabella Yoder LPN null, [facility] 04/28/2014 08:36:07 Tdap 5 completed Gabriella Crain LPN null, [facility] 05/19/2014 10:19:24 Influenza, split virus, quadrivalent, PF 8 completed Not Available On license of [facility] 03/29/2019 02:22:58 Influenza, split virus, quadrivalent, PF 9 completed Not Available On license of [facility] 03/29/2019 02:24:07 Pneumococcal conjugate PCV 13 0 completed Susan George CMA null, [facility] 12/15/2019 11:25:40 Influenza, high-dose, quadrivalent, PF 0 completed Susan George CMA null, [facility] 12/15/2019 11:26:51 COVID-19, mRNA, LNP-S, PF, 100 mcg/0.5mL dose or 50 mcg/0.25mL dose 1 completed Sy Wade COPY CENTER ASSOCIATE null, [facility] 08/02/2020 09:51:06 COVID-19, mRNA, LNP-S, PF, 100 mcg/0.5mL dose or 50 mcg/0.25mL dose 1 completed Sy Wade COPY CENTER ASSOCIATE null, [facility] 08/02/2020 09:52:05 zoster recombinant 1 completed [facility] 01/25/[facility]21 08:19:13 COVID-19, mRNA, LNP-S, PF, 100 mcg/0.5mL dose or 50 mcg/0.25mL dose 1 completed [facility] 01/14/2021 16:33:46 Influenza, split virus, quadrivalent, preservative 1 completed Nilmari, [facility] 01/25/2021 08:17:55 pneumococcal polysaccharide PPV23 1 completed Nilmari, [facility] 01/25/2021 08:18:43 COVID-19, mRNA, LNP-S, PF, 100 mcg/0.5mL dose or 50 mcg/0.25mL dose 2 completed Nilmari, RMA Farrell null, [facility] 08/29/2021 12:08:38 zoster recombinant 1 completed Nil[facility], [facility] 09/05/2021 15:24:16 COVID-19, mRNA, LNP-S, bivalent, PF, 50 mcg/0.5 mL or 25mcg/0.25 mL dose 3 completed Dunia Le COPY CENTER ASSOCIATE null, [facility] 08/24/2022 08:17:56 influenza, unspecified formulation 2 completed Jackeline Spivey. [address] [place], [address], [facility] 10/05/2022 10:46:41 Influenza, split virus, quadrivalent, preservative 3 completed Tamiko NOLA Yamayra ibarra, [facility] 11/26/2022 19:09:19 Respiratory syncytial virus (RSV) vaccine, unspecified 3 completed Tamiko RMA Farrell null, [facility] 01/15/2023 11:04:41 COVID-19, mRNA, LNP-S, bivalent, PF, 50 mcg/0.5 mL or 25mcg/0.25 mL dose 4 completed Tamiko DOMINIKAlethea Farrell null, [facility] 05/15/2023 13:50:04 COVID-19, mRNA, LNP-S, PF, 100 mcg/0.5mL dose or 50 mcg/0.25mL dose 4 completed Tamiko RMA Farrell null, [facility] 11/27/2023 13:46:39 Influenza, high-dose, trivalent, PF 4 completed Tamiko RMAlethea Farrell null, [facility] 12/23/2023 20:11:59 COVID-19, mRNA, LNP-S, bivalent, PF, 50 mcg/0.5 mL or 25mcg/0.25 mL dose 5 completed JULIANO Hicks, [facility] 07/14/2024 08:47:37 Past Encounters Encounter ID Performer Location Encounter Start Date Encounter Closed Date Diagnosis/Indication Diagnosis SNOMED-CT Code Diagnosis ICD10 Code Diagnosis Note [id number] Philipp Dorantes. , [facility] [place] [address] [place] [address] 02/22/2000 09:00:00 04/01/2008 02:02:29 [id number] [facility] Technolog[facility] st Radiology , [facility] [address] [facility] [place] [address] 1 07/30/2000 13:30:00 04/01/2008 02:02:29 [id number] Philipp Dorantes , [facility] [place] [address] [place] [address] 1 07/30/2000 12:15:00 04/01/2008 02:02:29 [id number] Philipp Dorantes. , [facility] [place] [address] [place] [address] 1 03/13/2000 11:15:00 04/01/2008 02:02:29 [id number] Consuleo Olivier , [facility] [place] [address] [place] [address] 1 05/24/2001 09:15:00 04/01/2008 02:02:29 [id number] [facility] Technolog[facility] Radiology , [facility] [address] [place], [place] [address] 08/02/2001 09:17:12 04/01/2008 02:02:29 [id number] Mauricio Roberts MD Radiology , [facility] [address] [place], [place] [address] 08/02/2001 00:00:00 04/01/2008 02:02:29 [id number] Consuelo Cole MD , [facility] [place] [address] [place] [address] 1 08/02/2001 08:22:20 04/01/2008 02:02:29 [id number] Consuelo Cole MD , [facility] [place] [address] [place] [address] [place] [address] 1 08/15/2001 09:02:03 04/01/2008 02:02:29 [id number] Consuelo Cole MD , [facility] [place] [address] [place] [address] [address] [place] [id number] 1 08/23/2001 14:00:47 04/01/2008 02:02:29 [id number] Consuelo Cole MD FP, [facility] [place] [address] [place] [address] [address] [place] [address] 1 03/26/2003 15:35:29 03/27/2003 09:46:53 [id number] Consuelo Cole MD FP, [facility] [place] [address] [place] [address] 1 05/21/2003 15:15:27 05/22/2003 07:48:28 [id number] [facility] Technolog[facility] st Radiology , [facility] [address] [place], [place] [address] 06/02/2003 08:58:25 06/02/2003 11:45:31 [id number] [facility] Technolog[facility] st Radiology , [facility] [address] [place] [address] 06/02/2003 00:00:00 04/01/2008 02:02:29 [id number] [facility] - [address] [place] [address] 06/02/2003 07:29:04 06/02/2003 12:14:49 [id number] [facility] - [address] [place] [address] 1 09/16/2003 07:26:20 09/16/2003 08:28:33 [id number] MD FILOMENA Moreland, [facility] [place] [address] [place] [address] 1 10/14/2003 16:25:54 10/15/2003 08:23:03 [id number] [facility] - [address] [place] [address] 1 01/20/2004 07:28:04 01/20/2004 08:08:41 [id number] [facility] Technolog[facility] st Radiology , [facility] [address] [facility] [place] [address] 1 06/23/2004 09:21:27 06/24/2004 08:10:35 [id number] [facility] Technolog[facility] st Radiology , [facility] [address] [facility] [place] [address] 1 06/23/2004 00:00:00 04/01/2008 02:02:29 [id number] Consuelo Cole MD , [facility] [place] [address] [place] [address] 1 07/01/2004 16:26:40 07/04/2004 09:06:26 [id number] [facility] [place] [address] [place] [address] 1 07/05/2004 11:25:55 07/05/2004 17:39:27 [id number] FP TREATMENT NURSE [facility] FP, [facility] [place] [address] [place] [address] 1 07/06/2004 11:17:37 07/07/2004 08:54:16 [id number] MD FILOMENA Beltre, [facility] [place] [address] [place] [address] 1 07/12/2004 00:00:00 04/01/2008 02:02:29 [id number] [facility] - [facility] [address] [place] [address] 07/12/2004 07:31:14 07/12/2004 08:15:38 [id number] Consuelo Cole MD FP, [facility] [place] [address] [place] [address] 1 07/19/2004 09:55:42 07/19/2004 13:43:54 [id number] ASP, MARY KIM MD ASP, [facility] [address] [place] [address] 09/30/2004 07:57:59 09/30/2004 17:54:01 [id number] FP TREATMENT NURSE [facility] FP, [facility] [place] [address] [place] [address] 1 10/14/2004 16:19:01 10/14/2004 17:25:32 [id number] [facility] - [address] [place] [address] 01/13/2005 07:38:03 01/13/2005 08:32:44 [id number] Lucero ARROYO FP, [facility] [place] [address] [place] [address] 1 01/12/2005 15:12:47 01/16/2005 15:37:17 [id number] [facility] Technolog[facility] st Radiology , [facility] [address] [place] [address] 01/16/2005 14:05:52 01/16/2005 14:30:13 [id number] [facility] Technologi Radiology , [address] [place] [address] 1 01/16/2005 00:00:00 04/01/2008 02:02:29 [id number] Consuelo Cole MD FP, [facility] [place] [address] [place] [address] 1 01/26/2005 11:42:51 01/27/2005 08:57:30 [id number] [facility] - [facility] [address] [place] [address] 1 01/26/2005 12:40:52 01/26/2005 12:41:14 [id number] Meredith Uribe NP FP, [facility] [place] [address] [place] [address] 1 07/03/2005 09:13:19 07/04/2005 09:09:07 [id number] [facility] Technolog[facility] st Radiology , [address] [place] [address] 07/03/2005 08:52:34 07/04/2005 08:31:14 [id number] [facility] Technolog[facility] Radiology , [address] [place] [address] 1 07/03/2005 00:00:00 04/01/2008 02:02:29 [id number] [facility] - [address] [place] [address] 1 07/12/2005 07:34:12 07/12/2005 08:24:19 [id number] [facility] Technologi st Radiology , [facility] [address] 1 07/20/2005 15:30:44 07/20/2005 15:36:14 [id number] [facility] Technolog[facility] st Radiology , [address] [place] [address] 1 07/20/2005 00:00:00 04/01/2008 02:02:29 [id number] Meredith Uribe NP FP, [facility] [place] [address] [place] [address] 1 08/15/2005 08:27:36 08/15/2005 14:16:22 [id number] [facility] Technologi st Radiology , [address] [place] [address] 1 10/16/2005 13:55:03 10/16/2005 14:35:40 [id number] [facility] Technolog[facility] Radiology , [address] [place] [address] 1 10/16/2005 00:00:00 04/01/2008 02:02:29 [id number] ANTON Nayak, [facility] [place] [address] [place] [address] 10/16/2005 13:19:22 10/16/2005 14:46:38 [id number] Consuelo Cole MD FP, [facility] [place] [address] [place] [address] 1 01/04/2006 15:14:37 01/09/2006 08:20:32 [id number] [facility] - [address] [place] [address] 1 01/24/2006 08:14:30 01/24/2006 08:42:49 [id number] [facility] Technolog[facility] Radiology , [address] [place] [address] 1 04/18/2006 08:49:08 04/19/2006 08:27:28 [id number] [facility] Techn[facility] Radiology , [address] [place] [address] 1 04/18/2006 00:00:00 04/01/2008 02:02:29 [id number] [facility] - [address] [place] [address] 1 07/17/2006 08:31:51 07/17/2006 08:31:54 [id number] [facility] Technolog[facility] st Radiology , [facility] [address] 1 08/09/2006 08:50:55 08/09/2006 12:10:35 [id number] [facility] Technologi st Radiology , [address] [place] [address] 1 08/09/2006 00:00:00 04/01/2008 02:02:29 [id number] Consuelo Cole MD , [facility] [place] [address] [place] [address] 1 08/09/2006 08:00:33 08/10/2006 07:33:25 [id number] [facility] Technolog[facility] st Radiology , [address] [place] [address] 1 11/09/2006 15:29:39 11/09/2006 15:57:30 [id number] [facility] Y Technologi st Radiology , [address] [place] [address] 1 08/12/2007 10:44:10 08/12/2007 14:00:12 [id number] [facility] - [facility] [address] 1 08/12/2007 08:41:51 08/12/2007 08:41:59 [id number] MD FILOMENA Moreland, [facility] [place] [address] [place] [address] 08/15/2007 10:56:20 08/19/2007 09:13:16 [id number] [facility] Y Technologi st Radiology , [address] [place] [address] 1 08/15/2007 10:34:40 08/15/2007 13:21:52 [id number] [facility] Technologi st Radiology , [address] [place] [address] 08/15/2007 12:20:18 08/15/2007 13:19:10 [id number] Maribell Muir, PT Physical Therapy, [address] [place] [address] 1 09/04/2007 08:49:17 09/04/2007 08:49:37 [id number] Maribell Muir, PT Physical Therapy, [address] [place] [address] 1 09/10/2007 13:28:10 09/10/2007 13:28:56 [id number] Maribell Muir, PT Physical Therapy, [address] [place] [address] 1 09/12/2007 10:46:09 09/12/2007 10:46:53 [id number] [facility] Technolog[facility] Radiology , [address] [place] [address] 1 11/15/2007 08:18:24 11/15/2007 11:24:46 [id number] [facility] Technolog[facility] Radiology , [address] [place] [address] 1 11/15/2007 00:00:00 04/01/2008 02:02:29 [id number] Meredith Uribe NP , [facility] [place] [address] [place] [address] 1 01/27/2008 13:39:41 04/01/2008 02:02:29 [id number] [facility] - [address] [place] [address] 1 02/11/2008 07:52:04 02/11/2008 07:52:08 [id number] [facility] Y Technologi st Radiology , [address] [place] [address] 1 02/19/2008 14:54:39 02/19/2008 15:26:44 [id number] [facility] BONE DENSITY Radiology , [address] [place] [address] 03/19/2008 08:19:18 03/19/2008 13:32:07 [id number] Rafael Patiño III, MD FP, [facility] [place] [address] [place] [address] 1 05/26/2008 11:06:11 05/27/2008 09:00:24 [id number] Meredith Uribe NP FP, [facility] [place] [address] [place] [address] 1 07/29/2008 08:30:14 07/30/2008 08:08:39 [id number] [facility] Y Technologi st Radiology , [address] [place] [address] 1 09/01/2008 08:19:41 09/03/2008 10:34:49 [id number] Meredith Uribe NP FP, [facility] [place] [address] [place] [address] 1 09/25/2008 11:52:26 09/29/2008 16:21:47 [id number] ANTON Nayak, [facility] [place] [address] [place] [address] [address] CO[place] [address] 1 10/15/2008 08:28:42 10/21/2008 08:29:02 [id number] [facility] Technologi st Radiology , [address] s[address]chez [address] 1 10/15/2008 08:50:26 10/23/2008 10:03:59 [id number] [facility] - [address] [place] [address] 09/10/2008 08:35:43 09/10/2008 08:35:46 [id number] ANTON Nayak, [facility] [address] [place] [address] [place] [address] 02/01/2009 09:05:06 02/01/2009 14:31:40 [id number] ANTON Nayak, [facility] [address] [place] [address] DR [place] [address] 1 05/11/2009 14:52:22 05/11/2009 16:49:31 [id number] ANTON Nayak, [facility] [address] [place] [address] DR COON[place]ina [place] [address] 1 08/02/2009 08:37:11 08/02/2009 10:53:44 [id number] [facility] Technologi st Radiology , [address] [place] [address] 1 09/14/2009 08:40:43 09/15/2009 10:43:40 [id number] [facility] Y Technolog[facility] st Radiology , [address] [place] [address] 1 09/23/2009 13:47:04 09/24/2009 11:00:24 [id number] Meredith Uribe NP FP, [facility] [address] [place] [address] 1 02/23/2010 08:46:52 02/23/2010 11:47:25 [id number] [facility] Y Technologi st Radiology , [facility] [address] [place] [address] 03/22/2010 08:14:23 03/24/2010 10:36:38 [id number] Meredith Uribe NP FP, [facility] [place] [address] [place] [address] 1 03/22/2010 08:15:38 03/22/2010 11:51:50 [id number] Mreedith Uribe NP FP, [facility] [place] [address] [place] [address] 1 09/20/2010 08:09:37 09/20/2010 17:24:29 [id number] [facility] FP, [facility] [place] [address] [place] [address] [place] [address] 1 01/17/2011 15:43:36 01/17/2011 15:49:26 [id number] Meredith Uribe NP , [facility] [place] [address] [place] [address] [place] [address] 1 03/20/2011 08:02:32 03/21/2011 15:13:20 [id number] Rafael Patiño III, MD , [facility] [place] [address] [place] [address] [place] [address] 1 09/22/2011 10:26:54 09/22/2011 11:31:50 [id number] Rafael Patiño III, MD , [facility] [address] [place] [address] [place] [address] 1 11/24/2011 14:39:12 11/24/2011 15:27:56 [id number] Romain Preciado MD Radiology , [facility] [address] [facility] [place] [address] 11/24/2011 15:32:53 11/29/2011 08:03:24 [id number] Rafael aPtiño III, MD FP, [facility] [address] [place] [address] DR COONORALIACelina DELMER [id number] 1 03/25/2012 08:11:32 03/25/2012 09:01:48 [id number] Rafael Patiño III, MD FP, [facility] [address] [place] [address] 1 10/16/2012 09:04:01 10/16/2012 09:34:33 [id number] Rafael Patiño III, MD , [facility] [address] [place] [address] 1 12/17/2012 07:56:22 12/17/2012 08:31:43 Influenza vaccine needed [id number] Right lowe r quadrant pain [id number] Rafael Patiño III, MD , [facility] [address] [place] [address] 04/04/2013 08:18:10 04/04/2013 09:13:14 Adult health examination [id number] see Risk Assessment and Lifestyle Change Counseling section above Benign ess ential hypertension [id number] Blood pressure at goal Mixed hyperlipidemia [id number] Cholestero l is at goal Continue to work on diet and exercise as discussed [id number] Rafael Patiño III, MD , [facility] [place] [address] [place] [address] 10/07/2013 08:14:04 10/07/2013 08:59:15 Benign essential hypertension 4347166 Blood pressure at goal Mixed hyperlipidemia 754541343 Cholestero l is at goal Continue to work on diet and exercise as discussed Right lowe r quadrant pain [id number] Meredith Uribe NP , [facility] [address] [place] [address] 1 04/28/2014 08:11:11 04/28/2014 09:07:56 Benign essential hypertension 6205907 Blood pressure at goal Mixed hyperlipidemia 713529388 Cholestero l is at goal Continue to work on diet and exercise as discussed Adult heal th examination [id number] see Risk Assessment and Lifestyle Change Counseling section above Screening for malignant neoplasm of cervix 872727430 Right lowe r quadrant pain [id number] Milena Perez D.O. , [facility] [place] [address] [place] [address] 1 10/27/2014 08:13:51 10/27/2014 09:12:15 Lifestyle 835049524 Mixed hyperlipidemia 178862601 Cholestero l is at goal Continue to work on diet and exercise as discussed Benign ess ential hypertension 7289145 Blood pressure at goal Impaired f asting glycemia 997449928 Acquired t manager costing finger 8190313 Varicella vaccination 23574752 Administra tion of diphtheria and tetanus vaccine 85738773 [id number] Milena Perez D.O. , [facility] [place] [address] [place] [address] 1 01/01/2015 10:04:39 01/01/2015 10:08:41 Active or passive immunization 927041031 Z23 [id number] Meredith Uribe, AN[place] , [facility] [address] [place] [address] 05/07/2015 10:13:11 05/07/2015 11:10:40 Mixed hyperlipidemia 922300920 E78.2 Cholestero l is at goal Continue to work on diet and exercise as discussed Benign ess ential hypertension 9709274 I10 Blood pressure at goal Impaired f asting glycemia 566076020 R73.01 Adult heal th examination 433849969 Z00.00 see Risk Assessment and Lifestyle Change Counseling section above Screening for malignant neoplasm of colon 995821797 Z12.11 Referral for a DIRECT booked colonoscop y. This patient is a healthy ASA Class 1 or 2 patient (only mild systemic disease), or a STABLE, well controlled insulin dependent diabetic. They do not have serious cardiac disease ie NE/angiopl asty within 1 year, symptomati c CHF; renal failure with CKD 4 or 5; take Coumadin, Plavix, Aggrenox, etc; nor take chronic narcotics. [Patients who take chronic narcotics should be referred to [facility] for a propofol procedure due to possible inability to sedate adequately with conscious sedation.] Family his tory of malignant neoplasm of ovary 758637311 Z80.41 Family his tory of breast cancer 473851104 Z80.3 [id number] Marshall Back MD ASP, [facility] [address] [place] [address] 08/24/2015 08:32:24 08/24/2015 13:32:47 [id number] Milena Perez D.O. , [facility] [address] [place] [address] 12/03/2015 08:08:39 12/03/2015 08:40:40 Benign essential hypertension 4142034 I10 Blood pressure at goal Mixed hyperlipidemia 267 534674 E78.2 Cholestero l is slightly above goal at 136. Maribell wanted to work on diet and exercise and revisit the need to increase Lovastatin dose at her next visit. Active or passive immunization 733493301 Z23 Impaired f asting glycemia 146417020 R73.01 Continue to work on diet and exercise. Pain of hip region 37127 002 M25.559 Discussed. No interventi on at this time. [id number] Milena Perez D.O. , [facility] [place] [address] [place] [address] 08/04/2016 10:10:49 08/04/2016 10:56:02 Adult health examination 364486257 Z00.00 see Risk Assessment and Lifestyle Change Counseling section above Benign ess ential hypertension 5111829 I10 Mixed hyperlipidemia 267 758824 E78.2 Impaired f asting glycemia 280898621 R73.01 Continue to work on diet and exercise. Family his tory of breast cancer 053231640 Z80.3 Followed with mammograms at [facility]. Family his tory of cancer of colon 299149733 Z80.0 Colonoscop y 2015, f/u 5 years. [id number] Milena Perez D.O. [facility], OFFICE [address] [place] [address] 11/30/2016 10:42:41 11/30/2016 13:20:58 Active or passive immunization 452951215 Z23 [id number] Milena Perez D.O. [facility], OFFICE [address] [place] [address] 12/14/2016 10:22:50 12/14/2016 12:28:17 Knee pain 96147907 M25.561 injury to R knee 48hourssli pped on sail boatER visit- xray negative? of meniscal injury, colateral ligamentre ferred to Injury Clinic at [facility] Ortho [id number] Milena Perez D.O. , [facility] [address] [place] [address] 02/06/2017 09:01:57 02/06/2017 09:43:42 Benign essential hypertension 6174783 I10 Blood pressure at goal Mixed hyperlipidemia 267 016850 E78.2 Cholestero l is at goal Continue to work on diet and exercise as discussed Impaired f asting glycemia 758219082 R73.01 Continue to work on diet and exercise. Tear of me niscus of knee 689189773 S83.206D [id number] Milena Perez D.O. [facility], OFFICE [address] [place] [address] 06/11/2017 09:16:57 06/11/2017 09:56:55 Right lower quadrant pain 319766578 R10.31 [id number] Milena Perez D.O. [facility], OFFICE [address] [place] [address] 08/17/2017 08:15:46 08/17/2017 10:08:36 Adult health examination 206366709 Z00.00 see Risk Assessment and Lifestyle Change Counseling section above Depression screening 171 644110 Z13.89 depression screening tool administer ed, entered into emr, scored and discussed, time greater than 7.5 minutes Mixed hyperlipidemia 267 108098 E78.2 Cholestero l is at goal Continue to work on diet and exercise as discussed Benign ess ential hypertension 3862892 I10 Blood pressure at goal Family his tory of breast cancer 057030067 Z80.3 Followed with mammograms at [facility]. Family his tory of cancer of colon 051027119 Z80.0 Colonoscop y 2015, f/u 5 years. Pain in right knee 12635 57437 57702 M25.561 Screening for malignant neoplasm of cervix 208304674 Z12.4 [id number] Milena Perez D.O. [facility], OFFICE [address] [place] [address] 11/30/2017 13:26:28 11/30/2017 13:44:44 Active or passive immunization 010840053 Z23 [id number] Milena Perez D.O. [facility], OFFICE [address] [place] [address] 02/15/2018 08:53:47 02/15/2018 09:29:10 Mixed hyperlipidemia 431587029 E78.2 Cholestero l is at goal Continue to work on diet and exercise as discussed Benign ess ential hypertension 8786365 I10 Blood pressure at goal Blood pressure NOT at goal. [id number] Milena Perez D.O. [facility] [address] [place] [address] 11/29/2018 09:24:46 11/29/2018 10:35:49 Adult health examination 611203842 Z00.00 see Risk Assessment and Lifestyle Change Counseling section above Depression screening 171 527166 Z13.89 depression screening tool administer ed, entered into emr, scored and discussed, time greater than 7.5 minutes Mixed hyperlipidemia 267 479048 E78.2 Cholestero l is at goal Continue to work on diet and exercise as discussed Benign ess ential hypertension 8319500 I10 Blood pressure at goal Blood pressure NOT at goal. Family his tory of cancer of colon 824804560 Z80.0 Colonoscop y 2015, f/u 5 years. Impaired f asting glycemia 397306660 R73.01 Continue to work on diet and exercise. Family his tory of breast cancer 348961901 Z80.3 Followed with mammograms at [facility]. Active or passive immunization 438076441 Z23 Right lowe r quadrant pain 152391663 R10.31 [id number] Jackeline Spivey . MD BUTT, [facility] [address] [place] [address] 06/16/2019 07:58:15 06/17/2019 15:26:21 Essential hypertension 54915381 I10 Blood pressure at home has been below 140/90. Continue same. Ordered labs before next visit. Mixed hyperlipidemia 267 280020 E78.2 On statin therapy, LDL below 130. Continue same. Fasting labs with blood sugar before next visit. Impaired f asting glycemia 156386067 R73.01 Her older brother had diabetes, not sure about family history in older generation . Diet reviewed. Check fasting sugar and hemoglobin A1c before next visit. Gastroesop hageal reflux disease 305265774 K21.9 Symptoms controlled with omeprazole . Continue same. Due for another endoscopy later this year. [id number] Jackeline Spivey . MD BUTT, [facility] [address] [place] [address] 12/01/2019 09:44:46 12/03/2019 15:40:20 Vesicular eczema of hand 758284545 L30.8 Dyshidroti c eczema. Patient to minimize exposure to water, use a regular moisturize r frequently , wear gloves when cleaning and washing dishes. Will provide moderate potency topical steroid and dermatolog y consult.di shidrotic eczema Benign ess ential hypertension 7345578 I10 at target below 140/90. continue same. Mixed hyperlipidemia 267 894423 E78.2 On statin therapy, LDL below 130. Continue same. Fasting labs with blood sugar before next visit. Impaired f asting glycemia 443844734 R73.01 Her older brother had diabetes, not sure about family history in older generation . Diet reviewed. Check fasting sugar and hemoglobin A1c before next visit. Gastroesop hageal reflux disease 471490438 K21.9 Symptoms controlled with omeprazole . Continue same. Due for another endoscopy later this year. [id number] Jackeline Spivey . MD BUTT, [facility] [address] [place] [address] 01/21/2020 08:50:43 01/21/2020 14:50:52 Blood in urine 10466348 R31.9 Call office if you develop new or concerning symptoms.P deanna has negative PAP in 2018Patien t had US in 2019, repeat in 3-6 months Urinary tr act infectious disease 52621834 N39.0 Finish all antibiotic s as prescribed below, drink plenty of fluids and f/u if you develop new or concerning symptoms or symptoms not improving over the next 2-3 days. . Large ovary 95550929 N83 .8 Repeat US of ovary. [id number] Jackeline Spivey . , [facility] [address] [place] [address] 07/29/2020 08:54:41 07/29/2020 10:02:48 Adult health examination 904790187 Z00.00 USPSTF guidelines reviewed and discussed with patient. Colonoscop y and mammograph y up to date. Vaccinatio ns up to date except for recombinan t shingles vaccine. Health care proxy in place. Counseling 700125827 Z71 .9 including cardiovasc ular risk reduction counseling . No aspirin indicated. Will change statin to a more potent one, see below. Depression screening 171 243837 Z13.31 depression screening tool administer ed, entered into emr, scored and discussed, time greater than 7.5 minutes. Negative screening. Screening for alcohol abuse 448438789 Z13.39 negative screening. Essential hypertension 05133714 I10 BP at target below 130/80. continue same. Mixed hyperlipidemia 267 665517 E78.2 Cholestero l is not at goal, switch to atorvastat in to lower LDL and cardiovasc ular risk further.. Continue to work on diet and exercise as discussed Vesicular eczema of hand 449827451 L30.8 Dyshidroti c eczema. Patient to minimize exposure to water, use a regular moisturize r frequently , wear gloves when cleaning and washing dishes. Will provide moderate potency topical steroid. [id number] Marshall Back MD [facility], [facility] [address] [facility] [place] [address] 10/27/2020 06:59:55 10/27/2020 12:32:39 [id number] Jackeline Spivey . , [facility] [place] [address] [place] [address] 01/25/2021 10:01:55 01/25/2021 11:08:54 Essential hypertension 60610039 I10 BP at target below 130/80. continue same. Mixed hyperlipidemia 267 186972 E78.2 Cholestero l is at goalContin ue to work on diet and exercise as discussed Gastroesop hageal reflux disease 456603492 K21.9 Symptoms controlled with omeprazole . Continue same. will have another endoscopy by Dr Back next year. Impaired f asting glycemia 919785681 R73.01 worsening, HgA1c 6.3, prediabete s.discusse d metformin, agreed to start metformin to decrease insulin resistance and preserve pancreatic islet function and delay diagnosis of DM.continu e to minimize alcohol and sweets and cut back on carbs. [id number] Jackeline Spivey . , [facility] [place] [address] [place] [address] 05/02/2021 10:33:44 05/02/2021 11:03:43 Essential hypertension 05124195 I10 BP at target below 130/80. continue same. Impaired f asting glycemia 265044091 R73.01 improving, HgA1c 6.1, prediabete s.continue to minimize alcohol and sweets and cut back on carbs.stay active. Mixed hyperlipidemia 267 552381 E78.2 Cholestero l is at goalContin ue to work on diet and exercise . Gastroesop hageal reflux disease 245690658 K21.9 Symptoms controlled with omeprazole . Dr aBck told her to take it less than daily. Family his tory of cancer of colon 732993505 Z80.0 colonoscop y UTD. Vesicular eczema of hand 104047459 L30.8 Dyshidroti c eczema. does well when using gloves for housework, uses topical steroids prn. Family his tory of breast cancer 508230729 Z80.3 mammo UTD. [id number] Jackeline Spivey . , [facility] [place] [address] [place] [address] 08/29/2021 13:53:26 08/29/2021 14:59:11 Adult health examination 395515095 Z00.00 USPSTF guidelines reviewed and discussed with patient. Colonoscop y 10-27-, redo 5 Y, and mammograph y 01-05-21up to date. Vaccinatio ns up to date except we need date of one more recombinan t shingles vaccine. Health care proxy in place. Counseling 936044955 Z71 .9 including cardiovasc ular risk reduction counseling , no asa, is on statin. Depression screening 171 402264 Z13.31 depression screening tool administer ed, entered into emr, scored and discussed, time greater than 7.5 minutes, negative screen. Screening for alcohol abuse 413801784 Z13.39 negative screening. Mixed hyperlipidemia 267 702798 E78.2 Cholestero l is at goalContin ue to work on diet and exercise . Essential hypertension 01367599 I10 BP at target below 130/80. continue same. Gastroesop hageal reflux disease 753548878 K21.9 Symptoms controlled with omeprazole . takes it every 3rd day. Family his tory of cancer of colon 091975158 Z80.0 colonoscop y UTD. every 5 Y. Impaired f asting glycemia 189200924 R73.01 improving, HgA1c 6.0, prediabete s.continue to minimize alcohol and sweets and cut back on carbs.stay active. Vesicular eczema of hand 159214920 L30.8 Dyshidroti c eczema. does well when using gloves for housework, uses topical steroids prn. Family his tory of breast cancer 471771882 Z80.3 mammo UTD. [id number] Aishwarya Siddiqui er, [employer] , [facility] [address] [place] [address] 03/08/2022 12:08:50 03/08/2022 12:51:54 Essential hypertension 60633596 I10 Controlled , continue hctz 25 daily and losartan 25 mg daily Mixed hyperlipidemia 267 611838 E78.2 Madison jordan is at goalContin ue to work on diet and exercise as discussedc ontinue atorvastat in 20 daily Pain of le ft hip joint 5440372907 71881 M25.552 Persistent pain in L hip, worsening w exertionin jection in L hip in past helpful, is wearing off- referral to Ortho for re-evaluat ion and possible corticoste roid injection [id number] Jackeline Spivey . MD BUTT, [facility] [address] [place] [address] 10/05/2022 09:53:47 10/05/2022 14:17:52 Adult health examination 170302151 Z00.00 USPSTF guidelines reviewed and discussed with patient. Colonoscop y 10-27-20, redo 5 Y, and mammograph y fall 2001.up to date. Vaccinatio ns up to date. Health care proxy in place.CV counseling done. Depression screening 171 484728 Z13.31 depression screening tool administer ed, neg Screening for alcohol abuse 983005723 Z13.39 Alcohol use screening tool administer ed, neg Benign ess ential hypertension 9770823 I10 at target below 130/80. continue same. Gastroesop hageal reflux disease 815111119 K21.9 Symptoms controlled with omeprazole . takes it prn. Mixed hyperlipidemia 267 104618 E78.2 Madison jordan is at goal, continue sameContin ue to work on diet and exercise . Family his tory of cancer of colon 207747301 Z80.0 colonoscop y UTD. every 5 Y. Impaired f asting glycemia 756847984 R73.01 worsening. HgA1c 6.3, prediabete s.continue to minimize alcohol and sweets and cut back on carbs.stay active. Osteoarthr itis of joint of hand 10638956 M19.049 may use OTC diclofenac /Voltaren gel. [id number] Jackeline Spivey . MD BUTT, [facility] [address] [place] [address] 04/30/2023 10:33:57 04/30/2023 11:18:32 Benign essential hypertension 8524448 I10 at target at or below 130/80. continue same. at home BP 125/78 range. Mixed hyperlipidemia 267 510873 E78.2 Cholestero l is at goal, continue sameContin ue to work on diet and exercise . Impaired f asting glycemia 638771109 R73.01 improved, HgA1c 6.2, prediabete s.continue to minimize alcohol and sweets and cut back on carbs.stay active. Vesicular eczema of hand 378843403 L30.8 Dyshidroti c eczema. does well when using gloves for housework, uses topical steroids prn.has not needed them for a long while. Gastroesop hageal reflux disease 746724778 K21.9 Symptoms controlled with omeprazole . takes it prn. Osteoarthr itis of finger joint 163017822 M19.049 inflamed right now, to take ibuprofen, take omeprazole with it, may see hand surgeon if no change and wanted a steroid shot. [id number] Jackeline Spivey . , [facility] [address] [place], [place] [address] 10/09/2023 11:17:08 10/09/2023 12:22:33 Benign essential hypertension 0727056 I10 at target at or below 130/80. continue same. at home BP 125/78-130 /80 range. Family his tory of breast cancer 067411197 Z80.3 mammo UTD. ordered for Jan. Family his tory of cancer of colon 910956929 Z80.0 had polyps. colonoscop y UTD. every 5 Y. Gastroesop hageal reflux disease 499783929 K21.9 Symptoms controlled with omeprazole . takes it prn. Impaired f asting glycemia 170493827 R73.01 improved, HgA1c 6.1, prediabete s.continue to minimize alcohol and sweets and cut back on carbs.stay active. Mixed hyperlipidemia 267 191622 E78.2 Cholestero l is at goal, continue sameContin ue to work on diet and exercise . Vesicular eczema of hand 787979560 L30.8 Dyshidroti c eczema. does well when using gloves for housework, uses topical steroids prn. Adult [facility] th examination 030706673 Z00.00 USPSTF guidelines reviewed and discussed with patient. Colonoscop y 10-27-20, redo 5 Y, and mammograph y fall 2022, has one scheduled at [facility] [place] for 2023. Vaccinatio ns up to date. Health care proxy in place.CV counseling done. on statin, no asa indicated. Depression screening 171 519907 Z13.31 depression screening tool administer ed, negative Screening for alcohol abuse 255741033 Z13.39 Alcohol use screening tool administer ed, negative Pain of to e of left foot 3073338695 88149 M79.675 pain over dorsal aspect of MTP joints, ? neuroma, to see ortho. Lesion of oral mucosa 10 80413869 555319 K13.70 nodule in mucosa under upper lip, will refer to oral surgeon for evaluation , states it gets larger at times and causes pain. [id number] Jackeline Spivey . , [facility] [place] [address] [place] [address] 01/10/2024 10:52:21 01/10/2024 11:50:49 Lesion of oral mucosa 5950740433 618975 K13.70 nodule in mucosa under upper lip, ? mucocele? she will return to oral surgeon to discuss her concerns, but advised her excisional biopsy is a good idea. [id number] CHIP ACOSTA MD , [facility] [place] [address] [place] [address] 04/21/2024 09:57:26 2024 14:20:46 Benign essential hypertension 5303588 I10 At goal <130/80, continue current regimen. Gastroesop hageal reflux disease 333027246 K21.9 Continue omprazole. Impaired f asting glycemia 489757685 R73.01 A1c 6.4%. Recommend increasing to 1000 mg ER - if tolerated will send new rx. Mixed hyperlipidemia 267 872437 E78.2 At goal, continue statin. Generalize d osteoarthritis 838372268 M15.1 Would like to see specialist regarding arthritis. Family his tory of breast cancer 293123914 Z80.3 Goes to [facility]. Has had one benign mass [...] [place]: [employer] Maribell Colby [id number] Maribell Colby 10/05/2022 2 [facility] - MEDICARE ENHANCE (INDEMNITY PLAN) Maribell Colby [id number] Maribell Colby 04/30/2023 1 [place] Maribell Colby [id number] 2 Maribell Colby 04/30/2023 2 [facility] - MEDICARE ENHANCE (INDEMNITY PLAN) Maribell Colby [id number] Maribell Colby 10/09/2023 1 MEDICARE [place]: [facility] GOVERNMENT SERVICES Maribell Colby [id number] 2 Mraibell Colby 10/09/2023 2 [facility] - MEDICARE ENHANCE (INDEMNITY PLAN) Maribell Colby [id number] Maribell Colby 01/10/2024 1 MEDIC[place]: [employer] Maribell Colby [id number] 2 Maribell Colby 01/10/2024 2 [facility] - MEDICARE ENHANCE (INDEMNITY PLAN) Maribell Colby [id number] Maribell Colby 04/21/2024 1 MEDICARE [place]: NATIONAL [employer] Maribell Colby [id number] 2 Maribell Colby 04/21/2024 2 [facility] - MEDICARE ENHANCE (INDEMNITY PLAN) Maribell Colby [id number] Maribell Colby Notes Date Note Type [...] ischemic heart disease; No peripheral vascular disease (99508); No diabetes; No carotid artery stenosis Associated [...] GFR.On statin.GERD controlled with omeprazole. Jackeline Spivey. [address] [place] [address], [phone], [facility] 10/05/2022 10:51:06 4 text/html VMG HyperlipidemiaReported bypatient.Duration:chronic Control:well controlled; LDL has been 100-130, goal is <100; treated with medications; Patient understands medications are to lower cholesterol Compliance:compliant with medications; compliant with follow-up visits; compliant with diet Barriers to CareNo identified barriers to care Context:Nonsmoker; No ischemic heart disease; No peripheral vascular disease (78318); No diabetes; No carotid artery stenosis Associated [...] 0.8, GFR >60, HgA1c 6.2. Jackeline Spivey. [address] [place] [address], [phone], [facility] 04/30/2023 11:03:30 4 text/html Risk Assessment and [...] past 12 months has the electric, gas, [employer] or water company threatened to shut off [...] ischemic heart disease; No peripheral vascular disease (69119); No diabetes; No carotid artery stenosis Associated [...] 98.6,On statin.GERD controlled with omeprazole. Jackeline Spivey. [address] [place] [address], [phone], [facility] 10/09/2023 12:11:50 4 text/html nodule under upper lip, referred to oral surgeon when seen over the summer. Told she needs surgery for biopsy.States she felt the visit was perfunctory and wishes to discuss it. Jackeline Spivey. [address] [place], [address], [facility] 01/10/2024 11:48:54 5 text/html Patient with history of hypertension, hyperlipidemia, impaired fasting glucose, hand eczema and acid reflux presents for med management. HTN: losartan 25 mg. Pre-diabetes: last A1c was 6.4%. Metformin 500 mg ER and statin. OA: hands, hip injection with cortisone. Feet, uses orthotic. Sees financial assistance specialist over at [facility] in [place]. Dr. Tineo. GERD: takes omeprazole three times a week. CHIP ACOSTA MD [address] [place], [address], [facility] 04/21/2024 17:57:59 OBGyn Episode No OBEpisode recorded.
== END 2024-07-23 14:42 | disposition home or self-care (01) ==
LOC: HO.HAP 14:41
PROVIDERS: Visit Provider Family Medicine
DX: Z46.1 Encounter for fitting and adjustment of hearing aid (principal); H90.3 Sensorineural hearing loss, bilateral
CPT/HCPCS: V5261; V5299

== ENCOUNTER 2024-08-28 13:56 | Outpatient (REF) | payer SELFPAY ==
--- OUTSIDE RECORDS SUMMARY | 2024-08-28 15:13 | XMS_ITS | Data Portability ---
Author Organization [facility], [facility] Address [address] [place] [address] Care Team Providers Care Speech Language Specialist Name Role Phone CHIP ACOSTA Primary Care [...] HbA1c (hemog lobin A1c), blood 2023 024 [facility], [address] [place] [address], [id number], 10/02/2023 14:29:48 BMP, serum or plasma 2023 024 [facility], [address] [place] [address], [id number], 10/04/2023 12:15:00 HbA1c (hemog lobin A1c), blood 2022 024 [facility], [address] [place] [address], [address], 04/26/2023 12:28:00 BMP, serum or plasma 2022 024 [facility], [address] [place] [address], [address], 04/26/2023 14:13:00 Referral hand surgeo n referr al 2024 025 [email or web address] Agatha Redd MD, [address] [place] [address], [address], 07/22/2024 09:43:13 oral & maxill ofacia l surgeo n referr al 2023 024 [email or web address] [facility], [address] [place] [address], [place], [address], 10/09/2023 12:24:14 orthop edic chado n referr al 2023 024 [facility], [address] [place] [address], [address], 10/18/2023 09:25:37 Procedures None record ed. Surgeries None record ed. Imaging None record ed. Medication Orders atorva statin 20 mg tablet 2024 025 [id number], [address] [place], [address], 04/21/2024 10:25:46 Patient TargetsNo targets recorded. Patient Instructions Encounter Date Encounter Id Patient Instructions Last Modified By Organization Details Last Modified Time 10/05/2022 [id number] advance directives: care instructions [email or web address] Not available 10/05/2022 10:49:15 preventing falls: care instructions [email or web address] Not available 10/05/2022 10:49:14 hearing loss: care instructions [email or web address] Not available 10/05/2022 10:49:14 well visit, over 65: care instructions [email or web address] Not available 10/05/2022 10:49:14 04/30/2023 [id number] I serve as the focal point for [...] Ge neralized osteoarthritis Referring Physician: Chip Acosta [facility], Encounter Date: 04/21/2024 Results Created [...] Available [facility] [address], [place], [address], 09/25/2022 11:46:24 09/26/19 23 09/25/2022 HGB A1C estimated average glucose 134.1 mg/dL Not Available [address], [address], 09/25/2022 11:46:24 09/26/19 23 09/25/2022 BASIC METAB OLIC PANEL glucose 100 mg/dL 70-100 Not Available [address], [address], 09/25/2022 15:24:30 09/26/19 23 09/25/2022 BASIC METAB OLIC PANEL BUN 26 mg/dL 7-18 high Not Available [address], [address], 09/25/2022 15:24:30 09/26/19 23 09/25/2022 BASIC METAB OLIC PANEL creatinine 0.7 mg/dL 0.8-1. 3 low Not Available [address], [address], 09/25/2022 15:24:30 09/26/19 23 09/25/2022 BASIC METAB OLIC PANEL B/C 37.1 ratio Not Available [address], [address], 09/25/2022 15:24:30 09/26/19 23 09/25/2022 BASIC METAB [...] be used in pregn cheryl. Not Available [address], [address], 09/25/2022 15:24:30 09/26/19 23 09/25/2022 BASIC METAB OLIC PANEL sodium 140 mmol/ L 136-14 5 Not Available [address], [address], 09/25/2022 15:24:30 09/26/19 23 09/25/2022 BASIC METAB OLIC PANEL potassium 4.1 mmol/ L 3.5-5. 1 Not Available [address], [address], 09/25/2022 15:24:30 09/26/19 23 09/25/2022 BASIC METAB OLIC PANEL chloride 102 mmol/ L 96-107 Not Available [address], [address], 09/25/2022 15:24:30 09/26/19 23 09/25/2022 BASIC METAB OLIC PANEL anion gap 11.1 5.0-15 .0 Not Available [address], [address], 09/25/2022 15:24:30 09/26/19 23 09/25/2022 BASIC METAB OLIC PANEL CO2 27 mmol/ L 21-32 Not Available [address], [address], 09/25/2022 15:24:30 09/26/19 23 09/25/2022 BASIC METAB OLIC PANEL calcium 9.5 mg/dL 8.5-10 .3 Not Available [address], [address], 09/25/2022 15:24:30 09/26/19 23 09/25/2022 LIPID PANEL cholesterol 186 mg/dL <200 mg/dl Lucie able 200-2 39 mg/dl Borde rline High >240 mg/dl High Not Available [address], [address], 09/25/2022 15:24:31 09/26/19 23 09/25/2022 LIPID PANEL triglyceride s 177 mg/dL <150 mg/dL Ava l 150-1 99 mg/dL Borde rline High 200-4 99 mg/dL High >500 mg/dL Very High Not Available [address], [address], 09/25/2022 15:24:31 09/26/19 23 09/25/2022 LIPID PANEL direct HDL 50 mg/dL <40 mg/dl - Major Risk for CHD >60 mg/dl - Negat donna Risk for CHD Not Available [address], [address], 09/25/2022 15:24:31 09/26/19 23 09/25/2022 LDL - CALCU LATED LDL - calculated 100.6 RISK CATEG ORY LDL GOAL _ CHD or CHD Risk Equiv alent s <100 mg/dl (10-y ear risk >20%) 2+ Risk Facto rs <130 mg/dl (10-y ear risk <= 20%) 0-1 Risk Facto r <160 mg/dl Almo st all peopl e with 0-1 risk facto r have a 10 year risk <10%, thus 10 year risk asses ment in peopl e with 0-1 risk facto r is not neces leny. Not Available [address], [address], 09/25/2022 15:24:32 04/26/19 24 04/26/2023 HGB A1C [...] furth er confi rmati on Not Available [address], [address], 04/26/2023 12:28:00 04/26/19 24 04/26/2023 HGB A1C estimated average glucose 131.2 mg/dL Not Available [address], [address], 04/26/2023 12:28:00 04/26/19 24 04/26/2023 BASIC METAB OLIC PANEL glucose 108 mg/dL 70-100 high Not Available [address], [address], 04/26/2023 14:13:00 04/26/19 24 04/26/2023 BASIC METAB OLIC PANEL BUN 21 mg/dL 7-18 high Not Available [address], [address], 04/26/2023 14:13:00 04/26/19 24 04/26/2023 BASIC METAB OLIC PANEL creatinine 0.8 mg/dL 0.8-1. 3 Not Available [address], [address], 04/26/2023 14:13:00 04/26/19 24 04/26/2023 BASIC METAB OLIC PANEL B/C 26.3 ratio Not Available [address], [address], 04/26/2023 14:13:00 04/26/19 24 04/26/2023 BASIC METAB [...] be used in pregn cheryl. Not Available [address], [address], 04/26/2023 14:13:00 04/26/19 24 04/26/2023 BASIC METAB OLIC PANEL sodium 142 mmol/ L 136-14 5 Not Available [address], [address], 04/26/2023 14:13:00 04/26/19 24 04/26/2023 BASIC METAB OLIC PANEL potassium 4.2 mmol/ L 3.5-5. 1 Not Available [address], [address], 04/26/2023 14:13:00 04/26/19 24 04/26/2023 BASIC METAB OLIC PANEL chloride 101 mmol/ L 96-107 Not Available [address], [address], 04/26/2023 14:13:00 04/26/19 24 04/26/2023 BASIC METAB OLIC PANEL anion gap 11.4 5.0-15 .0 Not Available [address], [address], 04/26/2023 14:13:00 04/26/19 24 04/26/2023 BASIC METAB OLIC PANEL CO2 30 mmol/ L 21-32 Not Available [address], [address], 04/26/2023 14:13:00 04/26/19 24 04/26/2023 BASIC METAB OLIC PANEL calcium 9.9 mg/dL 8.5-10 .3 Not Available [address], [address], 04/26/2023 14:13:00 04/26/19 24 04/26/2023 LIPID PANEL cholesterol 196 mg/dL <200 mg/dl Lucie able 200-2 39 mg/dl Borde rline High >240 mg/dl High Not Available [address], [address], 04/26/2023 14:13:01 04/26/19 24 04/26/2023 LIPID PANEL triglyceride s 212 mg/dL <150 mg/dL Ava l 150-1 99 mg/dL Borde rline High 200-4 99 mg/dL High >500 mg/dL Very High Not Available [address], [address], 04/26/2023 14:13:01 04/26/19 24 04/26/2023 LIPID PANEL direct HDL 55 mg/dL <40 mg/dl - Major Risk for CHD >60 mg/dl - Negat donna Risk for CHD Not Available [address], [address], 04/26/2023 14:13:01 04/26/19 24 04/26/2023 LDL - CALCU LATED LDL - calculated 98.6 RISK CATEG ORY LDL GOAL _ CHD or CHD Risk Equiv alent s <100 mg/dl (10-y ear risk >20%) 2+ Risk Facto rs <130 mg/dl (10-y ear risk <= 20%) 0-1 Risk Facto r <160 mg/dl Almo st all peopl e with 0-1 risk facto r have a 10 year risk <10%, thus 10 year risk asses ment in peopl e with 0-1 risk facto r is not neces leny. Not Available [address], [address], 04/26/2023 14:13:02 10/02/19 24 10/02/2023 HGB A1C [...] furth er confi rmati on Not Available [address], [address], 10/02/2023 14:29:47 10/02/19 24 10/02/2023 HGB A1C estimated average glucose 128.4 mg/dL Not Available [address], [address], 10/02/2023 14:29:47 10/02/19 24 10/04/2023 BASIC METAB OLIC PANEL glucose 94 mg/dL 70-100 Not Available [address], [address], 10/04/2023 12:15:00 10/02/19 24 10/04/2023 BASIC METAB OLIC PANEL BUN 19 mg/dL 7-18 high Not Available [address], [address], 10/04/2023 12:15:00 10/02/19 24 10/04/2023 BASIC METAB OLIC PANEL creatinine 0.8 mg/dL 0.8-1. 3 Not Available [address], [address], 10/04/2023 12:15:00 10/02/19 24 10/04/2023 BASIC METAB OLIC PANEL B/C 23.8 ratio Not Available [address], [address], 10/04/2023 12:15:00 10/02/19 24 10/04/2023 BASIC METAB [...] be used in pregn cheryl. Not Available [address], [address], 10/04/2023 12:15:00 10/02/19 24 10/04/2023 BASIC METAB OLIC PANEL sodium 141 mmol/ L 136-14 5 Not Available [address], [address], 10/04/2023 12:15:00 10/02/19 24 10/04/2023 BASIC METAB OLIC PANEL potassium 4.1 mmol/ L 3.5-5. 1 Not Available [address], [address], 10/04/2023 12:15:00 10/02/19 24 10/04/2023 BASIC METAB OLIC PANEL chloride 103 mmol/ L 96-107 Not Available [address], [address], 10/04/2023 12:15:00 10/02/19 24 10/04/2023 BASIC METAB OLIC PANEL anion gap 10.0 5.0-15 .0 Not Available [address], [address], 10/04/2023 12:15:00 10/02/19 24 10/04/2023 BASIC METAB OLIC PANEL CO2 28 mmol/ L 21-32 Not Available [address], [address], 10/04/2023 12:15:00 10/02/19 24 10/04/2023 BASIC METAB OLIC PANEL calcium 9.3 mg/dL 8.5-10 .3 Not Available [address], [address], 10/04/2023 12:15:00 04/18/19 25 04/18/2024 HGB A1C [...] furth er confi rmati on Not Available [address], [address], 04/18/2024 12:20:20 04/18/19 25 04/18/2024 HGB A1C estimated average glucose 137.0 mg/dL Not Available [address], [address], 04/18/2024 12:20:20 04/18/19 25 04/18/2024 BASIC METAB OLIC PANEL glucose 99 mg/dL 70-100 Not Available [address], [address], 04/18/2024 13:54:33 04/18/19 25 04/18/2024 BASIC METAB OLIC PANEL BUN 18 mg/dL 7-18 Not Available [address], [address], 04/18/2024 13:54:33 04/18/19 25 04/18/2024 BASIC METAB OLIC PANEL creatinine 0.8 mg/dL 0.8-1. 3 Not Available [address], [address], 04/18/2024 13:54:33 04/18/19 25 04/18/2024 BASIC METAB OLIC PANEL B/C 22.5 ratio Not Available [address], [address], 04/18/2024 13:54:33 04/18/19 25 04/18/2024 BASIC METAB [...] be used in pregn cheryl. Not Available [address], [address], 04/18/2024 13:54:33 04/18/19 25 04/18/2024 BASIC METAB OLIC PANEL sodium 142 mmol/ L 136-14 5 Not Available [address], [address], 04/18/2024 13:54:33 04/18/19 25 04/18/2024 BASIC METAB OLIC PANEL potassium 4.4 mmol/ L 3.5-5. 1 Not Available [address] [place], [address], 04/18/2024 13:54:33 04/18/19 25 04/18/2024 BASIC METAB OLIC PANEL chloride 101 mmol/ L 96-107 Not Available [address], [address], 04/18/2024 13:54:33 04/18/19 25 04/18/2024 BASIC METAB OLIC PANEL anion gap 11.4 5.0-15 .0 Not Available [address], [address], 04/18/2024 13:54:33 04/18/19 25 04/18/2024 BASIC METAB OLIC PANEL CO2 30 mmol/ L 21-32 Not Available [address], [address], 04/18/2024 13:54:33 04/18/19 25 04/18/2024 BASIC METAB OLIC PANEL calcium 10.0 mg/dL 8.5-10 .3 Not Available [address], [address], 04/18/2024 13:54:33 04/18/19 25 04/18/2024 LIPID PANEL cholesterol 176 mg/dL <200 mg/dl Lucie able 200-2 39 mg/dl Borde rline High >240 mg/dl High Not Available [address], [address], 04/18/2024 13:54:34 04/18/19 25 04/18/2024 LIPID PANEL triglyceride s 225 mg/dL <150 mg/dL Ava l 150-1 99 mg/dL Borde rline High 200-4 99 mg/dL High >500 mg/dL Very High Not Available [address], [address], 04/18/2024 13:54:34 04/18/19 25 04/18/2024 LIPID PANEL direct HDL 52 mg/dL <40 mg/dl - Major Risk for CHD >60 mg/dl - Negat donna Risk for CHD Not Available [address], [address], 04/18/2024 13:54:34 04/18/19 25 04/18/2024 LDL - CALCU LATED LDL - calculated 79 RISK CATEG ORY LDL GOAL _ CHD or CHD Risk Equiv alent s <100 mg/dl (10-y ear risk >20%) 2+ Risk Facto rs <130 mg/dl (10-y ear risk <= 20%) 0-1 Risk Facto r <160 mg/dl Almo st all peopl e with 0-1 risk facto r have a 10 year risk <10%, thus 10 year risk asses ment in peopl e with 0-1 risk facto r is not neces leny. Not Available [address], [address], 04/18/2024 13:54:35 01/18/20 23 01/16/2023 MAMMO , [...] Family history of malignant neoplasm of ovary [id number] Completed 08/04/2016 Meredith Uribe NP [address] [place] [address], [place], [address] [place] [address] 7 12:41:04 Family history of breast cancer 633665642 Active Meredith Uribe NP [facility] [place], [address], [facility] 6 13:12:12 Family history of cancer of colon 998487975 Active 2016 Meredith Uribe NP [address] [place], [place] [address], [address], [facility] 7 12:41:19 Gastroesoph ageal reflux disease 981329929 Active 2019 Jackeline broderick MD [address] [place], [place] [address], [place], [address], [facility] 0 09:46:53 Vesicular eczema of hand 644243851 Active 2020 Jackeline broderick MD [address] [place], [place] [address], [place], [address], [facility] 1 09:59:43 Mixed hyperlipide emile 910000150 Active 2003 Meredith Uribe NP [address] [place], [place] [address], [place], [address], [facility] 6 13:12:12 Psychogenic headache 62745846 Completed 200102/01/2009 Meredith Uribe NP [facility] [place], [address], [facility] 6 13:07:14 Essential hypertensio n 33810644 Completed 200303/25/2012 Meredith Uribe NP [facility] [place], [address], [facility] 6 13:07:14 Lateral epicondylit is 348343133 Completed 03/25/2012 Meredith Uribe NP [facility] [place], [place], [address], [facility] 6 13:07:15 Palpitation s 13900031 Completed 200403/25/2012 Meredith Uribe NP [facility] [place], [address], [facility] 6 13:07:15 Pain of multiple joints 48670447 Completed 03/25/2012 Meredith Uribe NP [address] [place], [address], [facility] 6 13:07:14 Benign essential hypertensio n 6149460 Active 2003 Meredith Uribe NP [address] [place], [address], [facility] 6 13:12:12 Neck pain 07111692 Completed 200703/25/2012 Meredith Uribe NP [address] [place], [address], [facility] 6 13:07:15 Noninflamma tory disorder of the vagina 03083341 Completed 200402/01/2009 Meredith Uribe NP [address] [place], [address], [facility] 6 13:07:15 Dysfunction al uterine bleeding Completed 200403/25/2012 Meredith Uribe NP [address] [place], [address], [facility] 6 13:07:14 Tachycardia 1934079 Completed 200303/25/2012 Meredith Uribe NP [address] [place], [address], [facility] 6 13:07:15 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 23530941 Completed 200702/01/2009 Meredith Uribe NP [address] [place], [address], [facility] 6 13:07:14 Pain of joint 76463394 Completed 200403/25/2012 Meredith Uribe NP [address] [place], [address], [facility] 6 13:07:14 Acute maxillary sinusitis 89130142 Completed 200102/01/2009 Meredith Uribe NP [address] [place], [address], [facility] 6 13:07:14 Elevated blood-press ure reading without diagnosis of hypertensio n 631924848 Completed 200102/01/2009 Meredith Uribe NP [address] [place], [address], [facility] 6 13:07:15 Impaired fasting glycemia 051763083 Active Meredith Uribe NP [address] [place], [address], [facility] 6 13:12:12 Hyperlipide emile 82907405 Completed 200303/25/2012 Meredith Uribe NP [address] [place], [address], [facility] 6 13:07:14 Acute bronchitis 58555020 Completed 03/25/2012 Meredith Uribe NP [address] [place], [address], [facility] 6 13:07:14 Malaise and fatigue 741423328 Completed 200403/25/2012 Meredith Uribe NP [address] [place], [address], [facility] 6 13:07:15 Headache 48186550 Completed 199902/01/2009 Meredith Uribe NP [address] [place], [address], [facility] 6 13:07:15 Viral disease 15198390 Completed 200002/01/2009 Meredith Urieb NP [address] [place], [address], [facility] 6 13:07:14 Sleep disorder 08215826 Completed 03/25/2012 Meredith Uribe NP [address] [place], [address], [facility] 6 13:07:15 Mammography abnormal 530816733 Completed 10/27/2014 Meredith Uribe NP [address] [place], [address], [facility] 6 13:07:15 Congenital anomaly of skin 043859755 Completed 03/25/2012 Meredith Uribe NP [address] [place], [address], [facility] 6 13:07:15 Primary malignant neoplasm of female breast 35377551 Completed 200303/25/2012 Meredith Uribe NP [address] [place], [address], [facility] 6 13:07:14 Menstruatio n finding Completed 200503/25/2012 Meredith Uribe NP [address] [place], [address], [facility] 6 13:07:15 Acute sinusitis 38008240 Completed 03/25/2012 Meredith Uribe NP [address] [place], [address], [facility] 6 13:07:14 Acute sinusitis 56425403 Completed 199902/01/2009 Meredith Uribe NP [address] [place], [address], [facility] 6 13:07:14 Joint pain in ankle and foot Completed 03/25/2012 Meredith Uribe NP [address] [place], [address], [facility] 6 13:07:14 Finding of trunk structure 918019778 Completed 200403/25/2012 Meredith Uribe NP [address] [place], [address], [facility] 6 13:07:15 Breast lump 61732166 Completed 200103/25/2012 Meredith Uribe NP [address] [place], [address], [facility] 6 13:07:14 Gastrointes tinal hemorrhage 76771888 Completed 200403/25/2012 Meredith Uribe NP [address] [place], [address], [facility] 6 13:07:14 Common cold 39812548 Completed 200002/01/2009 Meredith Uribe NP [facility] [place], [place], [address], [facility] 6 13:07:14 Mammography abnormal 993350407 Completed 200703/25/2012 Meredith Uribe NP [facility] [place], [place], [address], [facility] 6 13:07:15 Menopausal symptom 09121156 Completed 200803/25/2012 Meredith Uribe NP [address] [place], [address], [facility] 6 13:07:14 Solitary cyst of breast 212345286 Completed 200603/25/2012 Meredith Uribe NP [facility] [place], [place], [address], [facility] 6 13:07:14 Menopausal and postmenopau markus disorders 614706504 Completed 200702/01/2009 Meredith Uribe NP [address] [place], [address], [facility] 6 13:07:14 Problem Notes None recorded. Procedures Surgical History Date Name Laterality Status Provider Name and Address Organization Details Recorded Time 10/09/19 24 Medicare Wellness Visit completed NOLA Morrison [facility] 10/08/2023 09:36:32 10/09/19 24 Cardiovascular disease risk reduction counseling completed NOLA Morrison [facility] 10/08/2023 09:38:03 10/09/19 24 prevention-annual alcohol misuse screening completed NOLA Morrison [facility] 10/08/2023 09:38:04 04/30/19 24 [id number] completed Jackelineremberto Spivey. [address] [place] [address], [address], [facility] 04/29/2023 20:10:38 10/06/19 23 Medicare Wellness Visit completed Tamiko DOMINIKAlethea Farrell [facility] 10/02/2022 14:12:12 10/06/19 23 Cardiovascular disease risk reduction counseling completed Tamiko DOMINIKAlethea Farrell [facility] 10/02/2022 14:12:58 10/06/19 23 prevention-annual alcohol misuse screening completed NOLA Morrison [facility] 10/02/2022 14:13:02 08/30/19 22 Medicare Wellness Visit completed Tamiko DOMINIKAlethea Farrell [facility] 08/29/2021 12:05:23 08/30/19 22 Alcohol use screening completed Tamiko DOMINIKAlethea YaFarrell [facility] 08/29/2021 12:05:23 08/30/19 22 Cardiovascular disease risk reduction counseling completed Tamiko DOMINIKAlethea Farrell [facility] 08/29/2021 12:05:23 10/28/19 21 Tassoni - Colonoscopy completed Marshall Back MD [address] [place] [address], [address], [facility] 10/27/2020 08:11:19 10/28/19 21 colonoscopy completed Jackeline Spivey. [address] [place] [address], [address], [facility] 10/31/2020 16:05:15 07/30/19 21 Medicare Wellness Visit completed Dunia Le [facility] 07/29/2020 09:03:31 07/30/19 21 prevention-cardiov ascular risk reduction counseling completed Dunia Le [facility] 07/29/2020 09:03:31 07/30/19 21 prevention-annual alcohol misuse screening completed Dunia Le [facility] 07/29/2020 09:03:31 06/12/19 18 POC Urinalysis Testing completed Gloria Hinojosa LPN [facility] 06/11/2017 09:34:32 08/24/19 16 Tassoni - Colonoscopy completed Marshall Back MD [address] [place] [address], [address], [facility] 08/24/2015 11:21:39 08/24/19 16 Tassoni - EGD completed Marshall Back MD [address] [place] [address], [address], [facility] 08/24/2015 10:48:17 10/01/19 05 completed Not Available [facility] 01/26/2011 06:05:52 left oophorectomy completed Mary Grace Spivey. [address] [place] [address], [address], [facility] 02/16/2020 08:11:22 Imaging Results None recorded. Procedure Notes None recorded. Medical Equipment None Reported. Allergies Allergen ID Allergen Name Allergen Category Reaction Reaction Severity Criticality Documentation Date Start Date Code Code System Note Provider Name and Address Organization Details Recorded Time 48243 Substance with sulfonami de structure and antibacte rial mechanism of action (substanc e) medicatio n Not available Not available Not available 02/01/2009 56214 8003 SNOMED BELLS PALSY Betty argueta RN null, [facility] 1 16:24:01 75323 lisinopri l medicatio n cough Not available Not available 02/01/2009 66992 RxNorm Not Available [facility] 1 06:05:41 aspirin medicatio n abdominal pain Not available Not available 12/14/2016 1191 RxNorm Gloria Waldron MA null, [facility] 7 10:29:58 326340 ibuprofen medicatio n Not available Not available Not available 12/14/2016 5640 RxNorm Jackeline broderick MD [address] [place], [place] [address], [address], [facility] 4 10:51:49 28767 Bactrim medicatio n Not available Not available Not available 08/02/2009 82136 9 RxNorm BELLS PALSY Betty argueta RN null, [facility] 1 16:23:31 07949 penicilli n G Not available hives Not available Not available 08/02/2009 7980 RxNorm Not Available [facility] 1 06:05:41 Medications Name Sig Start [...] Available No t Available Fluzone High-Dose Quad 2020- (PF) 240 mcg/0.7 mL IM syringe ADM [...] Updated DateTime 5 163.83 cm 24.8 kg/m2 25059.0 8 g 83 /min 122 mm[Hg] 70 mm[Hg] Betty Holbrook [facility] 5 10:12:50 Date Recorded Systolic blood pressure Diastolic blood pressure Provider Name and Address Organization Details Last Updated DateTime 04/30/2023 130 mm[Hg] 80 mm[Hg] Jackeline Spivey. [address] [place] [address], [id number], [facility] 04/30/2023 10:56:20 Date Recorded Body height Body mass index (BMI) Body weight Heart rate Oxygen saturation Oxygen saturation in Arterial blood by Pulse oximetry Systolic blood pressure Diastolic blood pressure Provider Name and Address Organization Details Last Updated DateTime 4 163.83 cm 24.7 kg/m2 91579.4 9 g 77 /min 99 % 99 % 140 mm[Hg] 80 mm[Hg] [facility] 10[facility]01 Date Recorded Body height Body mass index (BMI) Body weight Heart rate Oxygen saturation Oxygen saturation in Arterial blood by Pulse oximetry Systolic blood pressure Diastolic blood pressure Provider Name and Address Organization Details Last Updated DateTime 3 163.83 cm 24 kg/m2 42432.1 2 g 75 /min 100 % 100 % 122 mm[Hg] 80 mm[Hg] [facility] [place] 3 10:31:22 Date Recorded Body height Body mass index (BMI) Body weight Heart rate Oxygen saturation Oxygen saturation in Arterial blood by Pulse oximetry Systolic blood pressure Diastolic blood pressure Provider Name and Address Organization Details Last Updated DateTime 4 163.83 cm 23.5 kg/m2 59415.3 4 g 63 /min 99 % 99 % 120 mm[Hg] 80 mm[Hg] NOLA Morrison [facility] 4 11:39:03 Date Recorded Body height Body mass index (BMI) Body weight Heart rate Oxygen saturation Oxygen saturation in Arterial blood by Pulse oximetry Systolic blood pressure Diastolic blood pressure Provider Name and Address Organization Details Last Updated DateTime 4 163.83 cm 24.5 kg/m2 65457.8 9 g 75 /min 99 % 99 % 120 mm[Hg] 70 mm[Hg] NOLA Morrison [facility] 4 11:20:24 Social History Question Answer Notes LastModified by Organizat ion Details LastModified Time Tobacco Smoking Status Never Smoker NOLA Morrison [facility] 08/29/2021 14:22:46 Do You Wear A Helmet When Biking? Yes [email or web address] Information not available 05/07/2015 What Is Your Level Of Caffeine Consumption? Occasional Tea Or Diet Soda Occasionally Information not available 04/28/2014 How Much Tobacco Do You Chew? None [email or web address] Information not available 05/07/2015 What Type Of Diet Are You Following? REGULAR Information not available 04/28/2014 Which Illicit Or Recreational Drugs Have You Used? None Information not available 07/29/2020 What Is The Highest Grade Or Level Of School You Have Completed Or The Highest Degree You Have Received? [id number] Information not available 01/25/2021 Have There Been Any Changes To Your Family Or Social Situation? No [email or web address] Information not available 08/29/2021 How Many Days In The Past Year Have You Had A Heavy Drinking Consumption (4+ Female, 5+ Male)? 0 [email or web address] Information not available 10/16/2012 Are There Any Guns Present In Your Home? No [email or web address] Information not available 08/29/2021 Do You Use Insect Repellent Routinely? Yes [email or web address] Information not available 08/29/2021 Live Alone Or [...] available 04/28/2014 Smoke Alarm In Home Yes [email or web address] Information not available 05/07/2015 Do You Have Smoke And Carbon Monoxide Detectors In Your Home? Yes [email or web address] Information not available 08/29/2021 Are You Passively Exposed To Smoke? No [email or web address] Information not available 08/29/2021 How Much Tobacco Do You Smoke? No [email or web address] Information not available 08/29/2021 General Stress Level Low [email or web address] Information not available 05/07/2015 Do You Use Sunscreen Routinely? Yes Information not available 04/28/2014 How Many Years Have You Smoked Tobacco? 0 [email or web address] Information not available 08/29/2021 Sex: Female Functional Status Question Answer Note LastModified by Organization Details LastModified Time Do you use any illicit or recreational drugs? No Information not available 01/25/2021 What is your level of alcohol consumption? Occasional a glass of wine with dinner on weekends Information not available 10/09/2023 Do you or have you ever used smokeless tobacco? Never used [email or web address] Information not available 08/29/2021 Are you currently employed? 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 Never used electronic cigarettes [email or web address] Information not available 08/29/2021 What is your exercise level? Occasional walks 3 times a week [email or web address] Information not available 08/29/2021 Mental Status None recorded. Family History Relationship Description Onset Age of this Age Resolved Age Notes LastModified by Organization Details LastModified Time Father Heart disease 72 [email or web address] Not available 05/07 13:07:33 Brother Malignant tumor of colon 74 [email or web address] Not available 07/11 09:38:23 Brother Diabetes mellitus [email or web address] Not available 08/2019 09:27:02 Brother Heart disease [email or web address] Not available [...] HTN, father of CAD at 72; brother MO at 60 Cancer: Family history is remarkable [...] virus, trivalent, preservative 1 completed Not Available [facility] 03/29/2019 02:18:14 DTaP, unspecified formulation 5 completed Not Available [facility] 01/25/2011 05:21:29 influenza, unspecified formulation 8 completed Not Available [facility] 01/25/2011 05:22:13 influenza, unspecified formulation 0 completed Not Available [facility] 01/25/2011 05:22:52 Influenza, split virus, trivalent, PF 3 completed Not Available [facility] 03/29/2019 02:18:58 zoster live 5 completed Not Available [facility] 03/29/2019 02:19:44 Td (adult), 5 Lf tetanus toxoid, preservative free, adsorbed 5 completed Not Available [facility] 03/29/2019 02:19:45 Influenza, split virus, quadrivalent, PF 5 completed Not Available [facility] 03/29/2019 02:19:52 influenza, unspecified formulation 2 completed [place] Zambrano, [facility] 03/25/2012 08:23:22 Influenza, split virus, quadrivalent, PF 6 completed Not Available [facility] 03/29/2019 02:20:42 Influenza, split virus, quadrivalent, PF 7 completed Not Available [facility] 03/29/2019 02:27:42 Influenza, split virus, trivalent, preservative 4 completed Anabella Yoder LPN null, [facility] 04/28/2014 08:36:07 Tdap 5 completed Gabriella Crain LPN null, [facility] 05/19/2014 10:19:24 Influenza, split virus, quadrivalent, PF 8 completed Not Available [facility] 03/29/2019 02:22:58 Influenza, split virus, quadrivalent, PF 9 completed Not Available [facility] 03/29/2019 02:24:07 Pneumococcal conjugate PCV 13 0 completed Susan George FORENSIC PSYCHOLOGIST [facility]/15[facility] 11:25:40 Influenza, high-dose, quadrivalent, PF 0 completed Susan George FORENSIC PSYCHOLOGIST [facility] 12/15/2019 11:26:51 COVID-19, mRNA, LNP-S, PF, 100 mcg/0.5mL dose or 50 mcg/0.25mL dose 1 completed Sy Wade FORENSIC PSYCHOLOGIST null, [facility] 08/02/2020 09:51:06 COVID-19, mRNA, LNP-S, PF, 100 mcg/0.5mL dose or 50 mcg/0.25mL dose 1 completed Sy Wade FORENSIC PSYCHOLOGIST null, [facility] 08/02/2020 09:52:05 zoster recombinant 1 completed [facility] 01/25/2021 08:19:13 COVID-19, mRNA, LNP-S, PF, 100 mcg/0.5mL dose or 50 mcg/0.25mL dose 1 completed Nilmari, RMA Farrell null, [facility] 01/14/2021 16:33:46 Influenza, split virus, quadrivalent, preservative 1 completed Nilmari, RMA Farrell null, [facility] 01/25/2021 08:17:55 pneumococcal polysaccharide PPV23 1 completed Nilmari, RMA [facility] 01/25/2021 08:18:43 COVID-19, mRNA, LNP-S, PF, 100 mcg/0.5mL dose or 50 mcg/0.25mL dose 2 completed Nilmari, RMA Farrell null, [facility] 08/29/2021 12:08:38 zoster recombinant 1 completed Nilmari, RMA [facility] 09/05/2021 15:24:16 COVID-19, mRNA, LNP-S, bivalent, PF, 50 mcg/0.5 mL or 25mcg/0.25 mL dose 3 completed Dunia Le CMA [facility] 08/24/2022 08:17:56 influenza, unspecified formulation 2 completed Jackeline Spivey. [address] [place] [address], [phone], [facility] 10/05/2022 10:46:41 Influenza, split virus, quadrivalent, preservative 3 completed Nilmari, RMA Farrell null, [facility] 11/26/2022 19:09:19 Respiratory syncytial virus (RSV) vaccine, unspecified 3 completed Nilmari, RMA Farrell null, [facility] 01/15/2023 11:04:41 COVID-19, mRNA, LNP-S, bivalent, PF, 50 mcg/0.5 mL or 25mcg/0.25 mL dose 4 completed Nilmari, RMA Farrell null, [facility] 05/15/2023 13:50:04 COVID-19, mRNA, LNP-S, PF, 100 mcg/0.5mL dose or 50 mcg/0.25mL dose 4 completed Nilmari, RMAlethea Farrell null, [facility] 11/27/2023 13:46:39 Influenza, high-dose, trivalent, PF 4 completed Nilmari, RMA Farrell null, [facility] 12/23/2023 20:11:59 COVID-19, mRNA, LNP-S, bivalent, PF, 50 mcg/0.5 mL or 25mcg/0.25 mL dose 5 completed Dunia Le FORENSIC PSYCHOLOGIST null, [facility] 07/14/2024 08:47:37 Past Encounters Encounter ID Performer Location Encounter Start Date Encounter Closed Date Diagnosis/Indication Diagnosis SNOMED-CT Code Diagnosis ICD10 Code Diagnosis Note [id number] Philipp Dorantes , [facility], OFFICE [address] [place] [address] 02/22/2000 09:00:00 04/01/2008 02:02:29 [id number] [facility] , [address] [place] [address] 07/30/2000 13:30:00 04/01/2008 02:02:29 [id number] Philipp Dorantes , [facility], OFFICE [address] [place] [address] 1 07/30/2000 12:15:00 04/01/2008 02:02:29 [id number] Philipp Dorantes , [facility], OFFICE [address] [place] [address] 03/13/2000 11:15:00 04/01/2008 02:02:29 [id number] Consuelo Olivier , [facility], OFFICE [address] [place] [address] 1 05/24/2001 09:15:00 04/01/2008 02:02:29 [id number] [facility] , [facility] [address] [facility] [place] [address] 08/02/2001 09:17:12 04/01/2008 02:02:29 [id number] Mauricio Roberts MD Radiology , [facility] [address] [facility] [place] [address] 08/02/2001 00:00:00 04/01/2008 02:02:29 [id number] Consuelo Cole MD , [facility], OFFICE [address] [place] [id number] 08/02/2001 08:22:20 04/01/2008 02:02:29 [id number] Consuelo Cole MD , [facility], OFFICE [address] [place] [address] 08/15/2001 09:02:03 04/01/2008 02:02:29 [id number] Consuelo Cole MD , [facility], OFFICE [address] [place] [address] 08/23/2001 14:00:47 04/01/2008 02:02:29 [id number] Consuelo Cole MD , [facility], OFFICE [address] [place] [id number] 03/26/2003 15:35:29 03/27/2003 09:46:53 [id number] Consuelo Cole MD , [facility], OFFICE [address] [place] [address] 05/21/2003 15:15:27 05/22/2003 07:48:28 [id number] [facility] , [address] [place] [address] 06/02/2003 08:58:25 06/02/2003 11:45:31 [id number] [facility] , [address] [place] [address] 06/02/2003 00:00:00 04/01/2008 02:02:29 [id number] [facility] LAB LAB - [address] [place] [address] 06/02/2003 07:29:04 06/02/2003 12:14:49 [id number] [facility] LAB LAB - [address] [place] [address] 09/16/2003 07:26:20 09/16/2003 08:28:33 [id number] Consuelo Cole MD FP, [facility], OFFICE [address] [place] [address] 1 10/14/2003 16:25:54 10/15/2003 08:23:03 [id number] [facility] LAB LAB - [facility] [address] [place] [address] 01/20/2004 07:28:04 01/20/2004 08:08:41 [id number] [facility] , [facility] [address] [place] [address] 1 06/23/2004 09:21:27 06/24/2004 08:10:35 [id number] [facility] , [facility] [address] [place] [address] 06/23/2004 00:00:00 04/01/2008 02:02:29 [id number] Consuelo Cole MD FP, [facility], OFFICE [address] [place] [address] 07/01/2004 16:26:40 07/04/2004 09:06:26 [id number] FP TREATMENT NURSE [facility] FP, [facility], OFFICE [address] [place] [address] 07/05/2004 11:25:55 07/05/2004 17:39:27 [id number] FP TREATMENT NURSE [facility], [facility], OFFICE [address] [place] [address] 07/06/2004 11:17:37 07/07/2004 08:54:16 [id number] Filiberto Sellers MD FP, [facility], OFFICE [address] [place] [address] 07/12/2004 00:00:00 04/01/2008 02:02:29 [id number] [facility] LAB LAB - [address] [place] [address] 07/12/2004 07:31:14 07/12/2004 08:15:38 [id number] Consuelo Cole MD FP, [facility], OFFICE [address] [place] [address] 1 07/19/2004 09:55:42 07/19/2004 13:43:54 [id number] ASP, MARY KIM MD ASP, [address] [place] [address] 09/30/2004 07:57:59 09/30/2004 17:54:01 [id number] FP TREATMENT NURSE [facility], [facility], OFFICE [address] [place] [address] 10/14/2004 16:19:01 10/14/2004 17:25:32 [id number] [facility] LAB LAB - [address] [place] [id number] 01/13/2005 07:38:03 01/13/2005 08:32:44 [id number] Lucero ARROYO , [facility], OFFICE [address] [place] [address] 01/12/2005 15:12:47 01/16/2005 15:37:17 [id number] [facility] ULTRASOUND [facility] , [address] [place] [address] 01/16/2005 14:05:52 01/16/2005 14:30:13 [id number] [facility] ULTRASOUND [facility] , [address] [place] [address] 1 01/16/2005 00:00:00 04/01/2008 02:02:29 [id number] Consuelo Cole MD , [facility], OFFICE [address] [place] [id number] 1 01/26/2005 11:42:51 01/27/2005 08:57:30 [id number] [facility] LAB LAB - [address] [place] [address] 01/26/2005 12:40:52 01/26/2005 12:41:14 [id number] Meredith Uribe NP , [facility], OFFICE [address] [place] [address] 07/03/2005 09:13:19 07/04/2005 09:09:07 [id number] [facility]MO[facility] , [address] [place] [address] 1 07/03/2005 08:52:34 07/04/2005 08:31:14 [id number] [facility] MAMMOGRAPH [facility] , [address] [place] [id number] 1 07/03/2005 00:00:00 04/01/2008 02:02:29 [id number] [facility] LAB LAB - [address] [place] [address] 07/12/2005 07:34:12 07/12/2005 08:24:19 [id number] [facility] MAMMOGRAPH Y [facility] , [address] [place] [address] 07/20/2005 15:30:44 07/20/2005 15:36:14 [id number] [facility] MAMMOGRAPH Y [facility] , [address] [place] [address] 1 07/20/2005 00:00:00 04/01/2008 02:02:29 [id number] Meredith Uribe NP FP, [facility], OFFICE [address] [place] [address] 1 08/15/2005 08:27:36 08/15/2005 14:16:22 [id number] [facility] ULTRASOUND [facility]iology , [address] [place] [address] 10/16/2005 13:55:03 10/16/2005 14:35:40 [id number] [facility] ULTRASOUND [facility] Radiology , [address] [place] [address] 1 10/16/2005 00:00:00 04/01/2008 02:02:29 [id number] Meredith Uribe NP , [facility], OFFICE [address] [place] [address] 10/16/2005 13:19:22 10/16/2005 14:46:38 [id number] MD FILOMENA Moreland, [facility], OFFICE [address] [place] [address] 01/04/2006 15:14:37 01/09/2006 08:20:32 [id number] [facility] LAB LAB - [facility] [place] [address] 1 01/24/2006 08:14:30 01/24/2006 08:42:49 [id number] [facility] ULTRASOUND [facility] Radiology , [address] [place] [address] 04/18/2006 08:49:08 04/19/2006 08:27:28 [id number] [facility] ULTRASOUND [facility] Radiology , [address] [place] [id number] 04/18/2006 00:00:00 04/01/2008 02:02:29 [id number] [facility] LAB LAB - [address] [place] [address] 1 07/17/2006 08:31:51 07/17/2006 08:31:54 [id number] [facility] M[facility]MO[facility] Y [facility] , [address] [place] [address] 08/09/2006 08:50:55 08/09/2006 12:10:35 [id number] [facility] MAMMOGRAPH Y [facility] Radiology , [address] [place] [address] 08/09/2006 00:00:00 04/01/2008 02:02:29 [id number] Consuelo Cole MD , [facility], OFFICE [address] [place] [address] 1 08/09/2006 08:00:33 08/10/2006 07:33:25 [id number] [facility] ULTRASOUND Techn[facility] Radiology , [address] [place] [address] 11/09/2006 15:29:39 11/09/2006 15:57:30 [id number] [facility] MAMMOGRAPH Y [facility] Radiology , [address] [place] [address] 08/12/2007 10:44:10 08/12/2007 14:00:12 [id number] [facility] LAB LAB - [address] [place] [address] 1 08/12/2007 08:41:51 08/12/2007 08:41:59 [id number] Consuelo Cole MD , [facility], OFFICE [address] [place] [address] 1 08/15/2007 10:56:20 08/19/2007 09:13:16 [id number] [facility] MAMMO[facility]APH Y [facility]iology , [address] [place] [address] 08/15/2007 10:34:40 08/15/2007 13:21:52 [id number] [facility] RADIOLOGY [facility] Radiology , [address] [place] [address] 1 08/15/2007 12:20:18 08/15/2007 13:19:10 [id number] Maribell Muir, PT Physical Therapy, [address] [place] [address] 1 09/04/2007 08:49:17 09/04/2007 08:49:37 [id number] Maribell Muir, PT Physical Therapy, [address] [place] [address] 1 09/10/2007 13:28:10 09/10/2007 13:28:56 [id number] Maribell Muir, PT Physical Therapy, [address] [place] [address] 1 09/12/2007 10:46:09 09/12/2007 10:46:53 [id number] [facility] ULTRASOUND [facility] Radiology , [address] [place] [address] 1 11/15/2007 08:18:24 11/15/2007 11:24:46 [id number] [facility] ULTRASOUND [facility] Radiology , [address] [place] [address] 11/15/2007 00:00:00 04/01/2008 02:02:29 [id number] Meredith Uribe NP FP, [facility], OFFICE [address] [place] [id number] 1 01/27/2008 13:39:41 04/01/2008 02:02:29 [id number] [facility] LAB LAB - [address] [place] [address] 1 02/11/2008 07:52:04 02/11/2008 07:52:08 [id number] [facility] MAMMOGRAPH Y [facility] , [address] [place] [address] 1 02/19/2008 14:54:39 02/19/2008 15:26:44 [id number] [facility] BONE DENSITY Radiology , [address] [place] [address] 1 03/19/2008 08:19:18 03/19/2008 13:32:07 [id number] Rafael Patiño III, MD FP, [facility], OFFICE [address] [place] [address] 1 05/26/2008 11:06:11 05/27/2008 09:00:24 [id number] Meredith Uribe NP FP, [facility], OFFICE [address] [place] [address] 1 07/29/2008 08:30:14 07/30/2008 08:08:39 [id number] [facility] MAMMOGRAPH Y [facility] Radiology , [address] [place] [address] 09/01/2008 08:19:41 09/03/2008 10:34:49 [id number] ANTON Nayak, [facility], OFFICE [address] [place] [address] 1 09/25/2008 11:52:26 09/29/2008 16:21:47 [id number] Meredith Uribe NP FP, [facility], [address] [place] [address] 1 10/15/2008 08:28:42 10/21/2008 08:29:02 [id number] [facility] RADIOLOGY Technolog[facility] Radiology , [address] [place] [address] 1 10/15/2008 08:50:26 10/23/2008 10:03:59 [id number] [facility] LAB LAB - [address] [place] [address] 09/10/2008 08:35:43 09/10/2008 08:35:46 [id number] Meredith Uribe NP FP, [facility], OFFICE [address] [place] [address] DR IB[place]HIMCelinaDELM[place] [address] 1 02/01/2009 09:05:06 02/01/2009 14:31:40 [id number] Meredith Uribe NP FP, [facility], OFFICE [address] [place] [address] DR COONORALIACelinaDELMER [address] 1 05/11/2009 14:52:22 05/11/2009 16:49:31 [id number] Meredith Uribe NP FP, [facility], OFFICE [address] [place] [address] DR [place], [place] [address] 1 08/02/2009 08:37:11 08/02/2009 10:53:44 [id number] [facility] M[facility]MOGRAPH Y [facility] , [address] [place] [address] 1 09/14/2009 08:40:43 09/15/2009 10:43:40 [id number] [facility] MAMMO[facility]APH Y [facility] Radiology , [address] [place] [address] 1 09/23/2009 13:47:04 09/24/2009 11:00:24 [id number] Meredith Uribe NP FP, [facility], OFFICE [address] [place] [address] [place] [address] 1 02/23/2010 08:46:52 02/23/2010 11:47:25 [id number] [facility] MAMMOGRAPH Y [facility] , [address] [place] [address] 1 03/22/2010 08:14:23 03/24/2010 10:36:38 [id number] ANTON Nayak, [facility], OFFICE [address] [place] [address] DR COON[place]ALIACelinaDELMER [id number] 1 03/22/2010 08:15:38 03/22/2010 11:51:50 [id number] Meredith Uribe NP , [facility], OFFICE [address] [place] [address] [place] [id number] 1 09/20/2010 08:09:37 09/20/2010 17:24:29 [id number] [facility] , [facility], OFFICE [address] [place] [address] [place] [id number] 1 01/17/2011 15:43:36 01/17/2011 15:49:26 [id number] Meredith Uribe NP , [address] [place] [id number] 1 03/20/2011 08:02:32 03/21/2011 15:13:20 [id number] Rafael Patiño III, MD , [address] [place] [address] 09/22/2011 10:26:54 09/22/2011 11:31:50 [id number] Rafael Patiño III, MD , [address] [place] [address] 1 11/24/2011 14:39:12 11/24/2011 15:27:56 [id number] Romain Preciado MD Radiology , [facility] [address] [place] [address] 1 11/24/2011 15:32:53 11/29/2011 08:03:24 [id number] Rafael Patiño III, MD , [address] [place] [address] 1 03/25/2012 08:11:32 03/25/2012 09:01:48 [id number] Rafael Patiño III, MD , [address] [place] [address] 1 10/16/2012 09:04:01 10/16/2012 09:34:33 [id number] Rafael Patiño III, MD , [facility] [address] [place] [address] [place] [address] 12/17/2012 07:56:22 12/17/2012 08:31:43 Influenza vaccine needed [id number] 106 Right lowe r quadrant pain 426801093 [id number] Rafael Patiño III, MD , [facility], [address] [place] [address] 1 04/04/2013 08:18:10 04/04/2013 09:13:14 Adult health examination 074610814 see Risk Assessment and Lifestyle Change Counseling section above Benign ess ential hypertension 1441226 Blood pressure at goal Mixed hyperlipidemia 435892430 Cholestero l is at goal Continue to work on diet and exercise as discussed [id number] Rafael Patiño III, MD , [facility], OFFICE [address] [place] [address] 10/07/2013 08:14:04 10/07/2013 08:59:15 Benign essential hypertension 5714180 Blood pressure at goal Mixed hyperlipidemia 178682123 Cholestero l is at goal Continue to work on diet and exercise as discussed Right lowe r quadrant pain 975333253 [id number] Meredith Uribe NP , [facility], OFFICE [address] [place] [address] 1 04/28/2014 08:11:11 04/28/2014 09:07:56 Benign essential hypertension 6115759 Blood pressure at goal Mixed hyperlipidemia 300572845 Cholestero l is at goal Continue to work on diet and exercise as discussed Adult heal th examination 237278705 see Risk Assessment and Lifestyle Change Counseling section above Screening for malignant neoplasm of cervix 458638235 Right lowe r quadrant pain 910344250 [id number] Milena Perez D.O. 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 , [facility], OFFICE [address] [place] [address] 01/01/2015 10:04:39 01/01/2015 10:08:41 Active or passive immunization 661345810 Z23 [id number] Meredith Uribe NP , [facility], OFFICE [address] [place] [address] 05/07/2015 10:13:11 05/07/2015 11:10:40 Mixed hyperlipidemia 774679026 E78.2 Cholestero l is at goal Continue to work on diet and exercise as discussed Benign ess ential hypertension 1028832 I10 Blood pressure at goal Impaired f asting glycemia 604496168 R73.01 Adult heal th examination 391921960 Z00.00 see Risk Assessment and Lifestyle Change Counseling section above Screening for malignant neoplasm of colon 591347576 Z12.11 Referral for a DIRECT booked colonoscop y. This patient is a healthy ASA Class 1 or 2 patient (only mild systemic disease), or a STABLE, well controlled insulin dependent diabetic. They do not have serious cardiac disease ie MO/angiopl asty within 1 year, symptomati c CHF; renal failure with CKD 4 or 5; take Coumadin, Plavix, Aggrenox, etc; nor take chronic narcotics. [Patients who take chronic narcotics should be referred to [facility] for a propofol procedure due to possible inability to sedate adequately with conscious sedation.] Family his tory of malignant neoplasm of ovary 763721984 Z80.41 Family his tory of breast cancer 326376864 Z80.3 [id number] Marshall Back MD [facility], [facility] 31 [facility] [place] [address] 08/24/2015 08:32:24 08/24/2015 13:32:47 [id number] Milena Perez D.O. , [facility], OFFICE [address] [place] [address] 1 12/03/2015 08:08:39 12/03/2015 08:40:40 Benign essential hypertension 8292709 I10 Blood pressure at goal Mixed hyperlipidemia 267 018672 E78.2 Cholestero l is slightly above goal at 136. Maribell wanted to work on diet and exercise and revisit the need to increase Lovastatin dose at her next visit. Active or passive immunization 082164868 Z23 Impaired f asting glycemia 592162791 R73.01 Continue to work on diet and exercise. Pain of hip region 91669 002 M25.559 Discussed. No interventi on at this time. [id number] Milena Perez D.O. , [facility], OFFICE [address] [place] [address] 08/04/2016 10:10:49 08/04/2016 10:56:02 Adult health examination 340461669 Z00.00 see Risk Assessment and Lifestyle Change Counseling section above Benign ess ential hypertension 4301102 I10 Mixed hyperlipidemia 267 662379 E78.2 Impaired f asting glycemia 115179590 R73.01 Continue to work on diet and exercise. Family his tory of breast cancer 503838523 Z80.3 Followed with mammograms at [facility]. Family his tory of cancer of colon 843799336 Z80.0 Colonoscop y 2016, f/u 5 years. [id number] Milena Perez D.O. , [facility], OFFICE [address] [place] [address] 11/30/2016 10:42:41 11/30/2016 13:20:58 Active or passive immunization 013492309 Z23 [id number] Milena Perez D.O. 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 of meniscal injury, colateral ligamentre ferred to [facility] [id number] Milena Perez D.O. , [facility], OFF[address] [place] [address] 1 02/06/2017 09:01:57 02/06/2017 09:43:42 Benign essential hypertension 5115611 I10 Blood pressure at goal Mixed hyperlipidemia 267 820162 E78.2 Cholestero l is at goal Continue to work on diet and exercise as discussed Impaired f asting glycemia 971730052 R73.01 Continue to work on diet and exercise. Tear of me niscus of knee 922434034 S83.206D [id number] Milena Perez D.O. , [facility], OFFICE [address] [place] [address] 1 06/11/2017 09:16:57 06/11/2017 09:56:55 Right lower quadrant pain 991065505 R10.31 [id number] Milena Perez D.O. , [facility], OFFICE [address] [place] [address] 1 08/17/2017 08:15:46 08/17/2017 10:08:36 Adult health examination 752574158 Z00.00 see Risk Assessment and Lifestyle Change Counseling section above Depression screening 171 063298 Z13.89 depression screening tool administer ed, entered into emr, scored and discussed, time greater than 7.5 minutes Mixed hyperlipidemia 267 801535 E78.2 Cholestero l is at goal Continue to work on diet and exercise as discussed Benign ess ential hypertension 9329852 I10 Blood pressure at goal Family his tory of breast cancer 012240776 Z80.3 Followed with mammograms at [facility]. Family his tory of cancer of colon 422489472 Z80.0 Colonoscop y 2015, f/u 5 years. Pain in right knee 21307 34562 10706 M25.561 Screening for malignant neoplasm of cervix 255366465 Z12.4 [id number] Milena Perez D.O. , [facility], OFF[address] [place] [address] 11/30/2017 13:26:28 11/30/2017 13:44:44 Active or passive immunization 267305000 Z23 [id number] Milena Perez D.O. [facility], OFF[address] [place] [address] 02/15/2018 08:53:47 02/15/2018 09:29:10 Mixed hyperlipidemia 789499938 E78.2 Cholestero l is at goal Continue to work on diet and exercise as discussed Benign ess ential hypertension 1076189 I10 Blood pressure at goal Blood pressure NOT at goal. [id number] Milena Perez D.O. , [facility], OFFICE [address] [place] [address] 11/29/2018 09:24:46 11/29/2018 10:35:49 Adult health examination 156026723 Z00.00 see Risk Assessment and Lifestyle Change Counseling section above Depression screening 171 131025 Z13.89 depression screening tool administer ed, entered into emr, scored and discussed, time greater than 7.5 minutes Mixed hyperlipidemia 267 201254 E78.2 Cholestero l is at goal Continue to work on diet and exercise as discussed Benign ess ential hypertension 5357716 I10 Blood pressure at goal Blood pressure NOT at goal. Family his tory of cancer of colon 288222823 Z80.0 Colonoscop y 2015, f/u 5 years. Impaired f asting glycemia 029049562 R73.01 Continue to work on diet and exercise. Family his tory of breast cancer 049715735 Z80.3 Followed with mammograms at [facility]. Active or passive immunization 823673601 Z23 Right lowe r quadrant pain 360591444 R10.31 [id number] Jackeline BUTT, [facility], OFF[address] [place] [address] 06/16/2019 07:58:15 06/17/2019 15:26:21 Essential hypertension 29619969 I10 Blood pressure at home has been below 140/90. Continue same. Ordered labs before next visit. Mixed hyperlipidemia 267 996124 E78.2 On statin therapy, LDL below 130. Continue same. Fasting labs with blood sugar before next visit. Impaired f asting glycemia 808382326 R73.01 Her older brother had diabetes, not sure about family history in older generation . Diet reviewed. Check fasting sugar and hemoglobin A1c before next visit. Gastroesop hageal reflux disease 649587574 K21.9 Symptoms controlled with omeprazole . Continue same. Due for another endoscopy later this year. [id number] Jackeline Spivey . MD BUTT, [facility], OFF[address] [place] [address] 12/01/2019 09:44:46 12/03/2019 15:40:20 Vesicular eczema of hand 397182182 L30.8 Dyshidroti c eczema. Patient to minimize exposure to water, use a regular moisturize r frequently , wear gloves when cleaning and washing dishes. Will provide moderate potency topical steroid and dermatolog y consult.di shidrotic eczema Benign ess ential hypertension 8493849 I10 at target below 140/90. continue same. Mixed hyperlipidemia 267 568190 E78.2 On statin therapy, LDL below 130. Continue same. Fasting labs with blood sugar before next visit. Impaired f asting glycemia 207937093 R73.01 Her older brother had diabetes, not sure about family history in older generation . Diet reviewed. Check fasting sugar and hemoglobin A1c before next visit. Gastroesop hageal reflux disease 573615127 K21.9 Symptoms controlled with omeprazole . Continue same. Due for another endoscopy later this year. [id number] Jackeline BUTT, [facility], OFF[address] [place] [address] 01/21/2020 08:50:43 01/21/2020 14:50:52 Blood in urine 52384458 R31.9 Call office if you develop new or concerning symptoms.P atient has negative PAP in 2018Patien t had US in 2019, repeat in 3-6 months Urinary tr act infectious disease 05067375 N39.0 Finish all antibiotic s as prescribed below, drink plenty of fluids and f/u if you develop new or concerning symptoms or symptoms not improving over the next 2-3 days. . Large ovary 69262338 N83 .8 Repeat US of ovary. [id number] Jackeline Mendez MD , [facility], OFF[address] [place] [address] 07/29/2020 08:54:41 07/29/2020 10:02:48 Adult health examination 773161177 Z00.00 USPSTF guidelines reviewed and discussed with patient. Colonoscop y and mammograph y up to date. Vaccinatio ns up to date except for recombinan t shingles vaccine. Health care proxy in place. Counseling 877546654 Z71 .9 including cardiovasc ular risk reduction counseling . No aspirin indicated. Will change statin to a more potent one, see below. Depression screening 171 593182 Z13.31 depression screening tool administer ed, entered into emr, scored and discussed, time greater than 7.5 minutes. Negative screening. Screening for alcohol abuse 974077057 Z13.39 negative screening. Essential hypertension 22661312 I10 BP at target below 130/80. continue same. Mixed hyperlipidemia 267 473194 E78.2 Cholestero l is not at goal, switch to atorvastat in to lower LDL and cardiovasc ular risk further.. Continue to work on diet and exercise as discussed Vesicular eczema of hand 311269208 L30.8 Dyshidroti c eczema. Patient to minimize exposure to water, use a regular moisturize r frequently , wear gloves when cleaning and washing dishes. Will provide moderate potency topical steroid. [id number] Marshall Back MD [facility], [facility] [address] [place] [address] 10/27/2020 06:59:55 10/27/2020 12:32:39 [id number] Jackeline Mendez MD , [facility], OFFICE [address] [place] [address] 01/25/2021 10:01:55 01/25/2021 11:08:54 Essential hypertension 65838384 I10 BP at target below 130/80. continue same. Mixed hyperlipidemia 267 917156 E78.2 Cholestero l is at goalContin ue to work on diet and exercise as discussed Gastroesop hageal reflux disease 356687062 K21.9 Symptoms controlled with omeprazole . Continue same. will have another endoscopy by Dr Back next year. Impaired f asting glycemia 654450511 R73.01 worsening, HgA1c 6.3, prediabete s.discusse d metformin, agreed to start metformin to decrease insulin resistance and preserve pancreatic islet function and delay diagnosis of DM.continu e to minimize alcohol and sweets and cut back on carbs. [id number] Jackeline Spivey . MD BUTT, [facility], OFFICE [address] [place] [address] 05/02/2021 10:33:44 05/02/2021 11:03:43 Essential hypertension 35489089 I10 BP at target below 130/80. continue same. Impaired f asting glycemia 468078703 R73.01 improving, HgA1c 6.1, prediabete s.continue to minimize alcohol and sweets and cut back on carbs.stay active. Mixed hyperlipidemia 267 997032 E78.2 Cholestero julian is at goalContin ue to work on diet and exercise . Gastroesop hageal reflux disease 775019330 K21.9 Symptoms controlled with omeprazole . Dr Back told her to take it less than daily. Family his tory of cancer of colon 195317896 Z80.0 colonoscop y UTD. Vesicular eczema of hand 540483528 L30.8 Dyshidroti c eczema. does well when using gloves for housework, uses topical steroids prn. Family his tory of breast cancer 078737019 Z80.3 mammo UTD. [id number] Jackeline Spivey . MD BUTT, [facility], OFF[address] [place] [address] 08/29/2021 13:53:26 08/29/2021 14:59:11 Adult health examination 052231092 Z00.00 USPSTF guidelines reviewed and discussed with patient. Colonoscop y 8-18-21, redo 5 Y, and mammograph y 01-05-21up to date. Vaccinatio ns up to date except we need date of one more recombinan t shingles vaccine. Health care proxy in place. Counseling 366514293 Z71 .9 including cardiovasc ular risk reduction counseling , no asa, is on statin. Depression screening 171 038470 Z13.31 depression screening tool administer ed, entered into emr, scored and discussed, time greater than 7.5 minutes, negative screen. Screening for alcohol abuse 140860587 Z13.39 negative screening. Mixed hyperlipidemia 267 635519 E78.2 Madison jordan is at goalContin ue to work on diet and exercise . Essential hypertension 56647839 I10 BP at target below 130/80. continue same. Gastroesop hageal reflux disease 990102777 K21.9 Symptoms controlled with omeprazole . takes it every 3rd day. Family his tory of cancer of colon 541281274 Z80.0 colonoscop y UTD. every 5 Y. Impaired f asting glycemia 685613156 R73.01 improving, HgA1c 6.0, prediabete s.continue to minimize alcohol and sweets and cut back on carbs.stay active. Vesicular eczema of hand 188821591 L30.8 Dyshidroti c eczema. does well when using gloves for housework, uses topical steroids prn. Family his tory of breast cancer 671489727 Z80.3 mammo UTD. [id number] Aishwarya Chen er, CHIEF DEPUTY , [facility], [address] [place] [address] 03/08/2022 12:08:50 03/08/2022 12:51:54 Essential hypertension 84687203 I10 Controlled , continue hctz 25 daily and losartan 25 mg daily Mixed hyperlipidemia 267 687424 E78.2 Cholestgabriela jordan is at goalContin ue to work on diet and exercise as discussedc ontinue atorvastat in 20 daily Pain of le ft hip joint 2475154461 38651 M25.552 Persistent pain in L hip, worsening w exertionin jection in L hip in past helpful, is wearing off- referral to Ortho for re-evaluat ion and possible corticoste roid injection [id number] Jackelien Spivey . FP, [facility], OFF[address] [place] [address] 10/05/2022 09:53:47 10/05/2022 14:17:52 Adult health examination 029654284 Z00.00 USPSTF guidelines reviewed and discussed with patient. Colonoscop y 10-27-20, redo 5 Y, and mammograph y fall 2001.up to date. Vaccinatio ns up to date. Health care proxy in place.CV counseling done. Depression screening 171 729770 Z13.31 depression screening tool administer ed, neg Screening for alcohol abuse 942914720 Z13.39 Alcohol use screening tool administer ed, neg Benign ess ential hypertension 0791755 I10 at target below 130/80. continue same. Gastroesop hageal reflux disease 520156940 K21.9 Symptoms controlled with omeprazole . takes it prn. Mixed hyperlipidemia 267 497100 E78.2 Cholestero l is at goal, continue sameContin ue to work on diet and exercise . Family his tory of cancer of colon 548140581 Z80.0 colonoscop y UTD. every 5 Y. Impaired f asting glycemia 491499396 R73.01 worsening. HgA1c 6.3, prediabete s.continue to minimize alcohol and sweets and cut back on carbs.stay active. Osteoarthr itis of joint of hand 39441837 M19.049 may use OTC diclofenac /Voltaren gel. [id number] Jackeline Spivey . MD BUTT, [facility], OFF[address] [place] [address] 04/30/2023 10:33:57 04/30/2023 11:18:32 Benign essential hypertension 3556010 I10 at target at or below 130/80. continue same. at home BP 125/78 range. Mixed hyperlipidemia 267 564416 E78.2 Cholestero l is at goal, continue sameContin ue to work on diet and exercise . Impaired f asting glycemia 613664240 R73.01 improved, HgA1c 6.2, prediabete s.continue to minimize alcohol and sweets and cut back on carbs.stay active. Vesicular eczema of hand 000538883 L30.8 Dyshidroti c eczema. does well when using gloves for housework, uses topical steroids prn.has not needed them for a long while. Gastroesop hageal reflux disease 686499285 K21.9 Symptoms controlled with omeprazole . takes it prn. Osteoarthr itis of finger joint 959632312 M19.049 inflamed right now, to take ibuprofen, take omeprazole with it, may see hand surgeon if no change and wanted a steroid shot. [id number] Jackeline Spivey . MD BUTT, [facility], OFFICE [address] [place], [place] [address] 10/09/2023 11:17:08 10/09/2023 12:22:33 Benign essential hypertension 8509692 I10 at target at or below 130/80. continue same. at home BP 125/78-130 /80 range. Family his tory of breast cancer 921619631 Z80.3 mammo UTD. ordered for Jan. Family his tory of cancer of colon 478717825 Z80.0 had polyps. colonoscop y UTD. every 5 Y. Gastroesop hageal reflux disease 632005847 K21.9 Symptoms controlled with omeprazole . takes it prn. Impaired f asting glycemia 213059775 R73.01 improved, HgA1c 6.1, prediabete s.continue to minimize alcohol and sweets and cut back on carbs.stay active. Mixed hyperlipidemia 267 135355 E78.2 Cholestero l is at goal, continue sameContin ue to work on diet and exercise . Vesicular eczema of hand 212756419 L30.8 Dyshidroti c eczema. does well when using gloves for housework, uses topical steroids prn. Adult heal th examination 318881097 Z00.00 USPSTF guidelines reviewed and discussed with patient. Colonoscop y 10-27-20, redo 5 Y, and mammograph y fall 2022, has one scheduled at [facility] [place] for 2023. Vaccinatio ns up to date. Health care proxy in place.CV counseling done. on statin, no asa indicated. Depression screening 171 429653 Z13.31 depression screening tool administer ed, negative Screening for alcohol abuse 895480975 Z13.39 Alcohol use screening tool administer ed, negative Pain of to e of left foot 5550091745 76844 M79.675 pain over dorsal aspect of MTP joints, ? neuroma, to see ortho. Lesion of oral mucosa 10 44360771 210170 K13.70 nodule in mucosa under upper lip, will refer to oral surgeon for evaluation , states it gets larger at times and causes pain. [id number] Jackeline Mendez MD , [facility], OFFICE [address] [place] [address] 01/10/2024 10:52:21 01/10/2024 11:50:49 Lesion of oral mucosa 3402116002 111647 K13.70 nodule in mucosa under upper lip, ? mucocele? she will return to oral surgeon to discuss her concerns, but advised her excisional biopsy is a good idea. [id number] CHIP ACOSTA MD , [facility], OFF[address] [place] [address] 04/21/2024 09:57:26 2024 14:20:46 Benign essential hypertension 7730980 I10 At goal <130/80, continue current regimen. Gastroesop hageal reflux disease 038615430 K21.9 Continue omprazole. Impaired f asting glycemia 242954206 R73.01 A1c 6.4%. Recommend increasing to 1000 mg ER - if tolerated will send new rx. Mixed hyperlipidemia 267 206327 E78.2 At goal, continue statin. Generalize d osteoarthritis 484317684 M15.1 Would like to see specialist regarding arthritis. Family his tory of breast cancer 415143193 Z80.3 Goes to [facility]. Has had one benign mass removed. Monitoring one mass right now on each side. Health Concerns Section Related Observation LastModified by Organization Detai ls LastModified Time None Recorded Concern Status LastModified by Organization Details LastModified Time None Recorded Advance Directives Directive None Recorded Payers Insurance Date Sequence Insurance Name Policy Number Policy Figueredo Covered Member ID Figueredo Member ID Guarantor Name 01/07/2024 1 [facility] (HMO) Maribell Colby [id number] Maribell Colby 01/07/2024 2 [facility] HEALTH PL[facility] (POS) Maribell Colby [id number] Maribell Colby 02/22/2000 1 *SELF PAY* Avril Silveira 02/22/2000 1 *SELF PAY* Avril Silveira 02/22/2000 1 *SELF PAY* Avril Silveira 01/07/2024 1 [facility] (EPO) Maribell Colby [id number] Maribell Colby 02/28/2000 1 *SELF PAY* Avril Silveira 02/22/2000 1 *SELF PAY* Avril Silveira 02/22/2000 1 *SELF PAY* Avril Silveira 01/07/2024 1 [facility]: [place] BLUE [id number] Maribell Colby [id number] Maribell Colby 01/07/2024 3 HEALTH PLANS [facility] (PPO) Maribell Colby [id number] Maribell Colby 01/07/2024 1 [facility] (HMO) Maribell Colby [id number] Maribell Colby 01/07/2024 1 [facility] NAVIGATOR [facility] (PPO) Maribell Colby [id number] Maribell Colby 05/21/2003 1 [facility]: BLUE CHOICE (POS) [id number] Ar Therien [id number] Maribell Colby 01/27/2008 1 [facility] [employer] (POS) [id number] Ar Therien [id number] Maribell Colby 01/07/2024 1 [facility] (HMO) Maribell Colby [id number] Maribell Colby 01/07/2024 1 [facility]DEPENDENCE PLAN - [facility] (PPO) Maribell Colby [id number] Maribell Colby 07/08/2024 2 [facility] - MEDICARE ENHANCE (INDEMNITY PLAN) Maribell Colby [id number] Maribell Colby 07/08/2024 1 MEDICARE B-[place]: NATIONAL G[employer]ERNMENT SERVICES Maribell Colby [id number] Maribell Colby 01/07/2024 1 [facility] Maribell Colby [id number] Maribell Colby Notes Date Note Type Note [...] ischemic heart disease; No peripheral vascular disease (19114); No diabetes; No carotid artery stenosis Associated [...] GFR.On statin.GERD controlled with omeprazole. Jackeline Spivey. [address] [place] [address], [phone], [facility] 10/05/2022 10:51:06 4 text/html VMG HyperlipidemiaReported bypatient.Duration:chronic Control:well controlled; LDL has been 100-130, goal is <100; treated with medications; Patient understands medications are to lower cholesterol Compliance:compliant with medications; compliant with follow-up visits; compliant with diet Barriers to CareNo identified barriers to care Context:Nonsmoker; No ischemic heart disease; No peripheral vascular disease (09948); No diabetes; No carotid artery stenosis Associated [...] cr 0.8, GFR >60, HgA1c 6.2. Jackeline Parker MD [address] [place] [address], [phone], [facility] 04/30/2023 11:03:30 4 text/html Risk Assessment and [...] ischemic heart disease; No peripheral vascular disease (75489); No diabetes; No carotid artery stenosis Associated [...] LDL 98.6,On statin.GERD controlled with omeprazole. Jackeline Shoushtari. [address] [place], [phone], [facility] 10/09/2023 12:11:50 4 text/html nodule under upper lip, referred to oral surgeon when seen over the summer. Told she needs surgery for biopsy.States she felt the visit was perfunctory and wishes to discuss it. Jackeline Spivey. [address] [place], [phone], [facility] 01/10/2024 11:48:54 5 text/html Patient with history of hypertension, hyperlipidemia, impaired fasting glucose, hand eczema and acid reflux presents for med management. HTN: losartan 25 mg. Pre-diabetes: last A1c was 6.4%. Metformin 500 mg ER and statin. OA: hands, hip injection with cortisone. Feet, uses orthotic. Sees front office specialist over at [facility] in [place]. Dr. Tineo. GERD: takes omeprazole three times a week. CHIP ACOSTA MD [address] [place], [phone], [facility] 04/21/2024 17:57:59 OBGyn Episode No OBEpisode recorded.
== END 2024-08-28 13:57 | disposition home or self-care (01) ==
LOC: HO.HAP 13:56
PROVIDERS: Visit Provider Family Medicine
DX: Z13.89 Encounter for screening for other disorder (principal)